=== PATIENT | male | born 1940 | race Hispanic/Latino ===

== ENCOUNTER 2017-04-12 18:04 | Inpatient (IN) | payer MEDICARE ==
[2017-04-12 18:31] VITALS: BMI 21.5
--- NOTE | 2017-04-12 19:06 | ED PDOC ---
Arrival/HPI - General Chief Complaint: Altered Mental Status Time Seen by Provider: 04/12/17 18:27 Historian: Patient - History of Present Illness Narrative History of Present Illness (Text): 04/12/17 19:08 A 77 year old male, whose past medical history includes dementia and hypertension, presents to the emergency department because of agitated behavior. Patient's daughter and notes he has problems sleeping. Daughter also notes Dr. Richmond made a house visit last night to evaluate patient and changed his Xanax medication to Seroquel, which didn't help. Patient's family notes he is non compliant, combative and can't reason with him. Family note him to throw things and curse at them. Patient denies abdominal pain, chest pain, vomiting, vision changes, appetite changes or any other complaints at this time. PMD: Dr. Richmond Symptom Onset: Sudden Symptom Course: Unchanged Activities at Onset: Rest Context: Home Past Medical History - Provider Review Nursing Documentation Reviewed: Yes - Infectious Disease Hx of Infectious Diseases: None - Neurological HX Cerebrovascular Accident: Yes Hx Dementia: Yes - Musculoskeletal/Rheumatological Hx Falls: No - Genitourinary/Gynecological Hx Incontinence: Yes Hx Prostate Problems: Yes - Psychiatric Hx Bipolar Disorder: Yes Hx Depression: No Hx Emotional Abuse: No Hx Physical Abuse: No Hx Substance Use: Yes - Surgical History Other/Comment: Broken Nose - Suicidal Assessment Feels Threatened In Home Enviroment: No Family/Social History - Physician Review Nursing Documentation Reviewed: Yes Family/Social History: No Known Family HX Smoking Status: Former Smoker Hx Alcohol Use: Yes Hx Substance Use: Yes Allergies/Home Meds Allergies/Adverse Reactions: Allergies No Known Allergies Allergy (Verified 04/12/17 18:18) Home Medications: Home Meds Medication Instructions Recorded Confirmed OLANZapine [Zyprexa Zydis] 10 mg PO DAILY 12/12/13 04/12/17 Donepezil [Aricept] 10 mg PO DAILY 04/12/17 04/12/17 Lamotrigine [Lamictal] 100 mg PO DAILY 04/12/17 04/12/17 Metoprolol Tartrate [Lopressor] 25 mg PO HS 04/12/17 04/12/17 Mupirocin 2% Cream [Bactroban 30 applic TOP 04/12/17 Cream] Oxybutynin Chloride [Ditropan Xl] 5 mg PO DAILY 04/12/17 04/12/17 Quetiapine Fumarate [Seroquel] 50 mg PO DAILY 04/12/17 04/12/17 Quetiapine Fumarate [Seroquel] 100 mg PO HS 04/12/17 04/12/17 Simvastatin 10 mg PO DAILY 04/12/17 04/12/17 Venlafaxine [Effexor XR] 150 mg PO DAILY 04/12/17 04/12/17 amLODIPine [Norvasc] 5 mg PO DAILY 04/12/17 04/12/17 Review of Systems - Physician Review All systems were reviewed & negative as marked: Yes - Review of Systems Systems not reviewed;Unavailable: Dementia Eyes: absent: Vision Changes Cardiovascular: absent: Chest Pain Gastrointestinal: absent: Abdominal Pain, Vomiting, Appetite Changes Physical Exam Vital Signs Reviewed: Yes (O2 sat is 90-91% on room air) Vital Signs Temp Pulse Resp BP Pulse Ox 04/12/17 21:11 60 18 114/73 95 04/12/17 18:40 97.6 F 04/12/17 18:04 99.0 F 65 17 109/68 94 L Temperature: Afebrile Blood Pressure: Normal Pulse: Regular Respiratory Rate: Normal Appearance: Positive for: Non-Toxic Pain Distress: None Mental Status: Positive for: Confused, Agitated Finger Stick Blood Glucose: 141 - Systems Exam Head: Present: Atraumatic, Normocephalic Pupils: Present: PERRL Extroacular Muscles: Present: EOMI Conjunctiva: Present: Normal Mouth: Present: Moist Mucous Membranes Pharnyx: Present: Normal. No: ERYTHEMA, EXUDATE Neck: Present: Normal Range of Motion Respiratory/Chest: Present: Clear to Auscultation, Good Air Exchange. No: Respiratory Distress, Accessory Muscle Use Cardiovascular: Present: Regular Rate and Rhythm, Normal S1, S2. No: Murmurs Abdomen: Present: Normal Bowel Sounds. No: Tenderness, Distention, Peritoneal Signs Back: Present: Normal Inspection Upper Extremity: Present: Normal Inspection. No: Cyanosis, Edema Lower Extremity: Present: Normal Inspection. No: Edema Neurological: Present: GCS=15, CN II-XII Intact, Speech Normal Skin: Present: Warm, Dry, Normal Color. No: Rashes Psychiatric: Present: Alert, Agitated, Other (oriented to person and partly to place) Medical Decision Making ED Course and Treatment: 04/12/17 19:02 Impression: A 77 year old male with agitated behavior. Differential Diagnosis included but are not limited to: psych exacerbation vs worsening dementia vs infection Plan: -- EKG -- CT brain -- CT chest -- chest xray -- Urinalysis -- labs -- IV fluids -- Reassess and disposition Prior Visits: Notes and results from previous visits were reviewed. Patient last reported to the emergency department on 12/12/13 for evaluation of altered mental status, after code stroke. Patient was admitted to telemetry with neurologist on consult. Progress Notes: CT brain: IMPRESSION: No acute findings. Dictated and Authenticated by: Sebastian Doran MD 04/12/2017 8:32 PM Eastern Time ([place] & [place]) CT chest: IMPRESSION: 1. Elevation of the right hemidiaphragm with mild bibasilar atelectasis or scar , greatest in the right lower lobe. 2. Decreased height or wedge configuration of multiple thoracic segments which appear to be chronic with probable segmental ankylosis. 3. Small nonobstructing bilateral renal calculi. 4. Small hiatal hernia. 5. Otherwise negative CT chest. No focal infiltrates are identified. Dictated and Authenticated by: Kwesi Snider MD 04/12/2017 8:58 PM Eastern Time ([place] & [place] 04/12/17 21:12 Patient with hypoxia present but otherwise unremarkable vitals. ABG done with pC02 at 52 but compensated. No tachypnea. Chest XR and CT showing atx but no acute findings. Other labs with CPK elevation of 763 - will start ivf. Patient will need to be admitted for further psych eval. Will maintain nc O2 and IVF and psych consult. Discussed w/ Dr. Richmond. - Lab Interpretations Lab Results: 04/12/17 19:10 04/12/17 19:10 Lab Results 04/12/17 19:10: Sodium 139, Potassium 3.5 L, Chloride 101, Carbon Dioxide 30, Anion Gap 12, BUN 10, Creatinine 1.0, Est GFR ( Amer) > 60, Est GFR (Non- Af Amer) > 60, Random Glucose 95, Calcium 8.3 L, Magnesium 2.1, Total Bilirubin 0.8, AST 48, ALT 34, Alkaline Phosphatase 58, Lactate Dehydrogenase 522, Total Creatine Kinase 763 H, CK-MB (CK-2) 5.1 H, CK-MB (CK-2) % 0.7 L, Troponin I 0.03 D, NT-Pro-B Natriuret Pep 126, Total Protein 6.8, Albumin 3.4, Globulin 3.4, Albumin/Globulin Ratio 1.0 L, Lipase 30 04/12/17 19:10: PT 13.8 H, INR 1.28 H, APTT 27.6 04/12/17 19:10: WBC 6.5, RBC 3.81, Hgb 12.1 L, Hct 36.4 L, MCV 95.5, MCH 31.8, MCHC 33.2, RDW 13.9, Plt Count 205, MPV 9.0, Gran % 49.5 L, Lymph % (Auto) 31.9 , Baca % (Auto) 13.6 H, Eos % (Auto) 4.5, Baso % (Auto) 0.5, Gran # 3.21, Lymph # 2.1, Baca # 0.9 H, Eos # 0.3, Baso # 0.03 04/12/17 18:30: POC Glucose (mg/dL) 141 H I have reviewed the lab results: Yes - RAD Interpretation Radiology Orders: 04/12/17 18:33 Brain [HEAD W/O CONTRAST] [CT] Stat 04/12/17 19:00 CHEST PORTABLE [RAD] Stat 04/12/17 20:07 CHEST W/O CONTRAST [CT] Stat - EKG Interpretation Interpreted by ED Physician: Yes Type: 12 lead EKG - Medication Orders Current Medication Orders: Sodium Chloride (Sodium Chloride 0.9%) 1,000 mls @ 200 mls/hr IV .Q5H STA Stop: 04/13/17 01:19 Last Admin: 04/12/17 20:41 Dose: 200 mls/hr Discontinued Medications Potassium Chloride (Potassium Chloride Oral Soln) 40 meq PO STAT STA Stop: 04/12/17 20:26 Last Admin: 04/12/17 20:41 Dose: 40 meq - Scribe Statement The provider has reviewed the documentation as recorded by the Jamin Wakefield Provider Scribe Attestation: All medical record entries made by the Girishibjuliet were at my direction and personally dictated by me. I have reviewed the chart and agree that the record accurately reflects my personal performance of the history, physical exam, medical decision making, and the department course for this patient. I have also personally directed, reviewed, and agree with the discharge instructions and disposition. Disposition/Present on Arrival - Present on Arrival Any Indicators Present on Arrival: No History of DVT/PE: No History of Uncontrolled Diabetes: No Urinary Catheter: No History of Decub. Ulcer: No History Surgical Site Infection Following: None - Disposition Have Diagnosis and Disposition been Completed?: Yes Diagnosis: Altered mental status, Elevated CPK Disposition: HOSPITALIZED Disposition Time: 21:10 Patient Plan: Admission Condition: FAIR
[2017-04-12 19:27] LABS: ADD MANUAL DIFF? NO
[2017-04-12 19:38] LABS: BASO # 0.03 K/mm3 (0.0-2.0); BASO % 0.5 % (0.0-3.0); EOS # 0.3 (0.0-0.7); EOS % 4.5 % (1.5-5.0); GRAN # 3.21 (1.4-6.5); GRAN % 49.5 % (50.0-68.0); HEMATOCRIT 36.4 % (42.0-52.0); LYMPH # 2.1 (1.2-3.4); LYMPH % 31.9 % (22.0-35.0); MEAN CELL VOLUME 95.5 fL (80.0-105.0); MEAN CORPUSCULAR HEMOGLOBIN 31.8 pg (25.0-35.0); MEAN CORPUSCULAR HGB CONC 33.2 g/dl (31.0-37.0); MONO # 0.9 (0.1-0.6); MONO % 13.6 % (1.0-6.0); PLATELET COUNT 205 10^3/uL (120.0-450.0); RED CELL DISTRIBUTION WIDTH 13.9 % (11.5-14.5); WHITE BLOOD COUNT 6.5 10^3/ul (4.5-11.0)
[2017-04-12 20:01] LABS: ALKALINE PHOSPHATASE 58 U/L (38-133); ALT/SGPT 34 U/L (7-56); AST/SGOT 48 U/L (15-59); BILIRUBIN,TOTAL 0.8 mg/dL (0.2-1.3); BLOOD UREA NITROGEN 10 mg/dL (7-21); CALCIUM 8.3 mg/dL (8.4-10.5); CARBON DIOXIDE 30 mmol/L (21-33); CHLORIDE 101 mmol/L (98-107); GFR AFRICAN-AMERICAN > 60; GLUCOSE,RANDOM 95 mg/dL (70-110); LIPASE 30 U/L (23-300); MAGNESIUM 2.1 mg/dL (1.7-2.2); POTASSIUM 3.5 mmol/L (3.6-5.0); SODIUM 139 mmol/L (132-148); TOTAL PROTEIN 6.8 g/dL (5.8-8.3)
[2017-04-12 20:13] LABS: TROPONIN I 0.03 ng/mL
[2017-04-12] MEDS ORDERED: Sodium Chloride 0.9% 1,000 ML IV STA (20:20)
[2017-04-12] MEDS ORDERED: Potassium Chloride 40 mEq/30 ml LIQ UD PO STA (20:25)
[2017-04-12 21:01] LABS: INR 1.28 (0.93-1.08); PARTIAL THROMBOPLASTIN TIME 27.6 Seconds (23.7-30.8)
[2017-04-12 22:01] LABS: PH,URINE 5.5 (4.7-8.0); URINE BILIRUBIN NEGATIVE (NEGATIVE); URINE BLOOD MODERATE (NEGATIVE); URINE GLUCOSE (UA) NEGATIVE (NEGATIVE); URINE KETONE NEGATIVE (NEGATIVE); URINE LEUKOCYTE ESTERASE NEGATIVE Leu/uL (NEGATIVE); URINE PROTEIN NEGATIVE mg/dL (<30 mg/dL); URINE UROBILINOGEN 0.2 E.U./dL (<1 E.U./dL)
[2017-04-12 22:03] LABS: URINE APPEARANCE CLEAR (CLEAR); URINE COLOR YELLOW (YELLOW)
[2017-04-12 22:10] LABS: URINE EPITHELIAL CELLS 0 - 2 /hpf (0-5); URINE RBC 15 - 20 /hpf (0-2)
[2017-04-12 23:28] LABS: ARTERIAL BLOOD GAS HCO3 31.5 mmol/L (21-28); ARTERIAL BLOOD GAS PH 7.39 (7.35-7.45)
--- NOTE | 2017-04-13 00:07 | HP ---
HISTORY OF PRESENT ILLNESS: The patient is a 77-year-old known to me from multiple previous admissio ns. I was called by the family yesterday that lately he has been somewhat confused, agitated, upset, obsessed with certain ideas. He keeps on repeating himself, is very abusive the family has no t been sleeping. He has been on multiple psych medications. We made a change and told the family if this did not help then he should be brought to Emergency Room for further evaluation and make adjust ment of his psych medication. There is no history of nausea or vomiting, no history of diarrhea, no history of hemoptysis, no hematemesis, no chest pain, no shortness of breath. According to daughter and who is the [employer] rep that lately he has been obsessed with certain idea and keeps on ta lking about that. Once he starts saying something he keeps on repeating for a very long period of ti me and it is very hard to distract him, sometime abusive. PAST MEDICAL HISTORY: Significant for: 1. History of bipolar disorder. 2. Hypertension. 3. Hyperlipidemia. 4. History of hip osteoarthritis. He has limited mobility because of pain in his hip. ALLERGIES: Not allergic to any medications. MEDICATIONS AT HOME: He is on Seroquel 100 mg at bedtime, 50 mg in a.m., simvastatin 10 mg daily, ox ybutynin 5 mg daily, metoprolol 25 at bedtime, Aricept 10 mg daily, amlodipine 5 mg daily, Lamictal 1 00 mg daily, Effexor 150 daily and Zyprexa 10 mg daily. SOCIAL HISTORY: He used to be a very heavy smoker. He does not smoke anymore. He used to drink a l ot, but has quit drinking also. REVIEW OF SYSTEMS: Significant for somewhat confusion and disorientation to time and place. PHYSICAL EXAMINATION: GENERAL: He is not in any distress. VITAL SIGNS: He is afebrile, pulse 60, respirations 18, blood pressure 117/77. LUNGS: Bilateral fair airflow, no rhonchi or crackle. HEART: S1, S2 audible. ABDOMEN: Soft, nontender, no rebound, no guarding. NEUROLOGIC: He is awake and alert, answers simple questions. He does not know the depth of the prob saravanan and cannot be reasoned. LABORATORY DATA: WBC is 139, potassium 3.5, chloride 101, CO2 30, BUN 10, creatinine 1.0, blood suga r 195. WBC 6.5, hemoglobin 12, hematocrit 36, platelet 206. PT 13.8, INR 1.08, PTT 27.6. Urinalysi s shows moderate blood. CT of the head is unremarkable. X-ray of the chest is unremarkable. ASSESSMENT: 1. Altered mental status, etiology unknown. 2. Underlying dementia. 3. Adjustment disorder. 4. Hypertension. 5. Hyperlipidemia. 6. Left hip osteoarthritis. PLAN: Will continue him on his usual home medication. Will be given Geodon as needed for agitation. Psych consult will be requested by and make adjustment dose of psych medication. Once he is medically cleared he might be transferred to a psych unit for adjustment of his psych medication and observation of his behavior. Sarah Richmond MD cc: [phone] TT: 04/13/2017 00:07:07 valentina
--- NOTE | 2017-04-13 07:31 | CT ---
PROCEDURE: CT HEAD WITHOUT CONTRAST. HISTORY: altered mental status COMPARISON: Noncontrast head CT performed 12/12/13 TECHNIQUE: Axial computed tomography images were obtained through the head/brain without intravenous contrast. Radiation dose: Total exam DLP = 871.01 mGy-cm. This CT exam was performed using one or more of the following dose reduction techniques: Automated exposure control, adjustment of the mA and/or kV according to patient size, and/or use of iterative reconstruction technique. FINDINGS: HEMORRHAGE: No intracranial hemorrhage. BRAIN: Diffuse atrophy with prominence of the ventricles and sulci noted. No mass effect or edema. Extensive left cerebral encephalomalacia and gliosis within the left MCA territory compatible with prior ischemic stroke. Acute on chronic ischemia cannot be excluded. Please note that MRI with diffusion imaging is more sensitive in the detection of acute ischemic event. VENTRICLES: No hydrocephalus. CALVARIUM: Unremarkable. PARANASAL SINUSES: Unremarkable as visualized. No significant inflammatory changes. MASTOID AIR CELLS: Unremarkable as visualized. No inflammatory changes. OTHER FINDINGS: None. IMPRESSION: Extensive left cerebral encephalomalacia and gliosis within the left MCA territory compatible with prior ischemic stroke. Acute on chronic ischemia cannot be excluded. Please note that MRI with diffusion imaging is more sensitive in the detection of acute ischemic event. Preliminary impression was provided by [facility].
[2017-04-13 07:52] LABS: MAGNESIUM 2.1 mg/dL (1.7-2.2)
[2017-04-13 08:05] LABS: FREE T4 0.76 ng/dL (0.78-2.19)
[2017-04-13 08:19] LABS: THYROID STIMULATING HORMONE 0.74 mIU/mL (0.46-4.68)
[2017-04-13 09:05] LABS: ALB/GLOB RATIO 0.9 (1.1-1.8); ALKALINE PHOSPHATASE 61 U/L (38-133); ALT/SGPT 34 U/L (7-56); AST/SGOT 49 U/L (15-59); BILIRUBIN,TOTAL 0.7 mg/dL (0.2-1.3); BLOOD UREA NITROGEN 9 mg/dL (7-21); CALCIUM 8.4 mg/dL (8.4-10.5); CARBON DIOXIDE 31 mmol/L (21-33); CHLORIDE 105 mmol/L (98-107); GFR AFRICAN-AMERICAN > 60; GLUCOSE,RANDOM 99 mg/dL (70-110); POTASSIUM 3.8 mmol/L (3.6-5.0); SODIUM 141 mmol/L (132-148); TOTAL PROTEIN 6.6 g/dL (5.8-8.3)
--- NOTE | 2017-04-13 09:24 | RAD ---
HISTORY: alt ms COMPARISON: 12/12/2013 FINDINGS: LUNGS: No active pulmonary disease. PLEURA: No significant pleural effusion identified, no pneumothorax apparent. CARDIOVASCULAR: Normal. OSSEOUS STRUCTURES: No significant abnormalities. VISUALIZED UPPER ABDOMEN: Normal. OTHER FINDINGS: None. IMPRESSION: No active disease.
[2017-04-13] MEDS: OXYBUTYNIN CHLORIDE 5 MG PO SCH (09:25)
[2017-04-13] MEDS ORDERED: Venlafaxine 75 mg ER Cap PO SCH ×2 (10:00→11:18)
--- NOTE | 2017-04-13 10:35 | CT ---
CT chest without IV contrast Indication: Hypoxia, rule out pneumonia Technique: Contiguous axial images were obtained through the chest without intravenous contrast enhancement. Sagittal and coronal reconstructions were generated and reviewed. This CT exam was performed using 1 or more of the falling dose reduction techniques: Automated exposure control, adjustment of the MAA and/or kV according to patient size, and/or use of iterative reconstruction technique. Radiation dose (DLP): 959.14 MGy-cm. Comparison: Chest x-ray performed 04/12/17 Findings: Visualized portions of the inferior thyroid gland appear unremarkable. The unenhanced mediastinal and hilar vascular structures appear grossly unremarkable. The heart appears within normal limits of size. Coronary artery calcifications. Sub cm prevascular and mediastinal lymph nodes, nonspecific. Bibasilar atelectasis. No focal consolidation. No pleural effusion. No pneumothorax. No suspicious pulmonary nodules measuring greater than 5 mm. Small to moderate hiatal hernia. Limited visualization of the noncontrast upper abdomen demonstrates small nonobstructing renal calculi bilaterally. Probable bilateral renal cysts measuring up to 2.3 cm on the right. Elevation of the right hemidiaphragm. Mild loss of height involving multiple mid and lower thoracic vertebral bodies may reflect compression fractures, age indeterminate. Prominent anterior osteophyte formation several of which are confluent. Osseous demineralization. Degenerative changes. Impression: Bibasilar atelectasis. Elevation of the right hemidiaphragm. Multilevel degenerative changes. Osseous demineralization. Loss of height of several vertebral bodies, possibly compression fracture deformities which are age indeterminate. Confluent anterior osteophyte formation. Nonobstructing bilateral renal calculi. Probable bilateral renal cysts. Small to moderate hiatal hernia. Additional findings as above. Preliminary impression was provided by [facility].
--- NOTE | 2017-04-13 11:59 | CARD ---
APPROVED REPORT EKG Measurement Heart [id number] <Conclusion> Sinus rhythm with 1st degree AV block Cannot rule out Inferior infarct, age undetermined C/W ECG 12/12/13: the rate is slower and there is 1st degree AVB now
--- NOTE | 2017-04-13 12:26 | CON ---
DATE: 04/13/2017 Shortly, the patient is a 77-year-old male with long and debilitating history of mental ill ness. Most likely, the patient has history of schizoaffective disorder, bipolar type, multiple admis sions to the psychiatric inpatient unit, had multiple suicidal attempts. The patient also has histor y of dementia. The patient also has history of alcohol use disorder. The patient does not have psyc hiatrist in the community. Mental problems were taken care of by Dr. Richmond as outpatient. At the same time, the patient was stable on the medications as of now. The patient was on Effexor. The patient was on Zyprexa 10 mg daily. The patient was on Lamictal 100 mg daily, Aricept 10 mg daily. The patient lives with his family in [place], was brought in by his daughter, as well as for amarilys luation of disorganized, agitated behavior. The patient was not safe in the house. The patient was smearing feces. The patient was throwing things towards his family, was restless, agitated, was not sleeping. Psych consult was called for evaluation of the patient's psychotic symptoms, as well as me dication management. The patient was seen on the medical side. The patient presented to be disorganized, psychotic, poor personal hygiene, intense eye contact, loud voice. The patient was making inappropriate comments giv ing this commercial loan underwriter compliments and asking how old is she. The patient also was asking, "Do I look good for you?" The patient seems to be intimidating and no boundaries. The patient gave permission to speak to his daughter. Daughter was contacted, ____ Cass Blanchard, . Collaterals were appreciated. As per daughter, the patient was more agitated and aggr essive for the past 2 days, was not sleeping, was throwing things towards the family members. Family members were not able to leave the patient even for a few minutes. The patient was having OCD sympt oms, but he is ____, also was measuring his feces. The patient also making feces, pacing, restless, and staying up. The patient has history of long psychiatric illnesses, [facility]. Most recent was 2 years ago. The patient has history of nonco mpliance with the medication, but the patient's daughter said that the patient was taking medication as it was prescribed. The patient was in correction 15 years ago. The patient tried to kill himself in the past, but most recent suicidal attempt, as per the patient's daughter was many years ago. The patient overdosed on pills. The patient was cutting his wrist with a knife. The patient has history of alcohol abuse di sorder. A few years back, the patient was convinced that he cut his penis off. and that is why the p atbisi was transferred to [facility]3]. This commercial loan underwriter reviewed previous psychiatric evaluation by Dr. Borja, and it was in 2013. The patient was on the same set of the medications - Effexor as well as Lamictal 100 mg, as well as Zyprexa 10 mg daily. This commercial loan underwriter discussed treatment plan in detail with the patient's daughter. This commercial loan underwriter reviewed vit al signs. VITAL SIGNS: Seem to be stable. Temperature 98.2. Pulse is 70, blood pressure 139/89, respirations 18. Oxygen saturation is 95. MEDICATIONS: Reviewed. Norvasc 5 mg daily, Lipitor 10 mg at the nighttime, Aricept 10 mg daily, Harkins ictal 100 mg daily, Lopressor 25 mg at the nighttime, ____ topical. Zyprexa was 10 mg daily, Effexor 150 mg daily, as well as Seroquel 100 mg at the nighttime and 50 mg daily, and Geodon 20 mg IM q. 8 hours as needed for agitation. LABORATORY DATA: Reviewed. Hemoglobin and hematocrit 12.1 and 36.4. Coagulation reviewed. Meat Pickler ry reviewed. AST and ALT within normal limits. Potassium is 3.5. Urinalysis showed blood moderate. Chest CT scan was done on the . Impression: Bibasilar atelectasis, multilevel degenerative klein ges, bilateral renal calculi, hiatal hernia. The patient also had CT scan of the head. Excessive left cerebral encephalomalacia and gliosis withi n the left MCA territory compatible with prior ischemic stroke. Acute on chronic ischemia cannot be excluded. MRI was recommended. Preliminary impression was provided by [facility]. Collateral information was obtained from the nursing staff. As per nursing staff, the patient slept well overnight time. The patient is disorganized, throwing food on the floor. Personal hygiene is v lilly poor. MENTAL STATUS EXAMINATION: The patient presented to be alert, angry, ____, poor personal hygiene. T he patient was sitting half naked. The patient had intense eye contact. Speech was loud. The patie nt was making inappropriate comments. Speech was over-productive and loud. Thought process is organ ized. Thought content: The patient seems to be disorganized. See above. The patient denied though ts of harming herself or others, but impulses are unpredictable. Insight and judgment are impaired. IMPRESSION: This commercial loan underwriter cannot exclude that patient is in delirium stage. Also, the patient has his tory of Alzheimer's dementia, history of schizoaffective disorder. The patient has multiple medical issues. Please see note for more detailed information. The patient was admitted on the medical side for evaluation of altered mental status, being confused, agitated. PLAN: This commercial loan underwriter had prolonged conversation with the patient's daughter. We will start adjustment of the medications. Most likely, the patient should be discontinued with Effexor. Celexa could be p referable for disinhibition syndrome, as well as the patient has history of smearing his feces. Lami ctal most likely will be changed to Depakote for mood stabilization. Zyprexa will be redistributed, and it will be given Zyprexa Zydis 5 mg 3 times a day at the morning time, and the nighttime, and 4:0 0 p.m. For insomnia, this commercial loan underwriter will give Sonata. Half-life is very short, and the patient could be sleepi ng better on that medication. The patient needs to be evaluated by social services designee in order to find out if the patient is capable of making decision about his POA, and if the patient wants his family to be his POA. In case this patie nt's mental status will be improving, and if the patient will be able to process the information abou t admission, treatment, and potential risk and benefits and alternatives of all of the medications, w e will consider to accept the patient under voluntary status. If patient will be combative and will be not able to make decision about admission, [facility]3] will be recommended. Screen ing process will be initiated. Meanwhile, this commercial loan underwriter cannot exclude that the patient's mental statu s will be improving with the help of adjustment of medications. Should you have any questions, give me a call back. Evelyn Coats MD cc: [phone] TT: 04/13/2017 12:25:18 Confirmation # [id number] Dictation # [id number]
[2017-04-13] MEDS ORDERED: OLANZapine 5 mg Disintegrating Tab PO SCH ×2 (14:00→22:00)
[2017-04-13] MEDS: Nystatin 100,000 Units/gm Topical Pow(15 gm) TOP SCH ×2 (15:14→17:23)
[2017-04-13 19:07] VITALS: RESP 20; TEMP 98.5
--- NOTE | 2017-04-13 19:11 | PN ---
DATE: 04/13/2017 SUBJECTIVE: The patient is a 77-year-old seen and examined, seemed to be confused, disoriented, not as agitated as when I saw him at home. PHYSICAL EXAMINATION: VITAL SIGNS: He is afebrile, pulse 70, respirations 18, blood pressure 139/83. LUNGS: Bilateral fair airflow, no rhonchi or crackle. HEART: S1, S2 audible. ABDOMEN: Soft, nontender, no rebound, no guarding. NEUROLOGIC: The patient is awake and alert, but confused and disoriented. LABORATORY: Sodium 141, potassium 3.8, chloride 105, CO2 of 31, BUN 9, creatinine 0.9, blood sugar o f 99. LFTs are within normal limits. CT scan of the chest is unremarkable. CT scan of the head is unremarkable. ASSESSMENT AND PLAN: 1. Dementia with agitation. 2. History of bipolar disorder. 3. Adjustment disorder. 4. Hypertension. 5. History of schizophrenia. 6. History of alcohol abuse in the remote past. PLAN: Get neuro evaluation, request Dr. Pineda. Psych medication is being adjusted by Dr. Rivas. Di scussed with the family at length, since we have volunteer unit, the patient is not capable of signin g himself, and if he clears up within a day or 2, he might be taken to psych unit, otherwise, we migh t have to [facility]. Sarah Richmond MD cc: [phone] TT: 04/13/2017 19:11:07 Confirmation # [id number] Dictation # [id number] mn
--- NOTE | 2017-04-14 03:17 | CP.PCM.PN ---
Subjective - Date & Time of Evaluation Date of Evaluation: 04/14/17 Time of Evaluation: 03:16 - Subjective Subjective: Ofelia was seen at bedside because One to one watch was requested. Reviewed with nurse. Received ativan 2 mg at 2:32 AM. This 77 year old male was admitted because he was confused , agigtated , obscessed with certain ideas. Has PMH of bipolar disorder, HTN, HLD, OA, hip pain/immobility 2* to hip pain, Ex smoker. Objective - Vital Signs/Intake and Output Vital Signs (last 24 hours): Temp Pulse Resp BP Pulse Ox 98.5 F 78 20 153/86 H 92 L 04/13/17 16:00 04/13/17 23:02 04/13/17 16:00 04/13/17 23:02 04/13/17 16:00 Intake and Output: 04/13/17 04/14/17 18:59 06:59 Intake Total 560 520 Balance 560 520 - Medications Medications: Current Medications Amlodipine Besylate (Norvasc) 5 mg PO DAILY [facility] Last Admin: 04/13/17 09:26 Dose: 5 mg Atorvastatin Calcium (Lipitor) 10 mg PO DIN [facility] Last Admin: 04/13/17 17:23 Dose: Not Given Citalopram Hydrobromide (Celexa) 10 mg PO DAILY [facility] Last Admin: 04/13/17 15:16 Dose: 10 mg Donepezil HCl (Aricept) 10 mg PO DAILY [facility] Last Admin: 04/13/17 09:26 Dose: 10 mg Lamotrigine (Lamictal) 75 mg PO DAILY [facility] Lorazepam (Ativan) 2 mg IM Q6H PRN; Protocol PRN Reason: severe agitation Last Admin: 04/14/17 02:32 Dose: 2 mg Metoprolol Tartrate (Lopressor) 25 mg PO HS [facility] Last Admin: 04/13/17 23:02 Dose: 25 mg Non-Formulary Medication (Oxybutynin Chloride [Ditropan Xl]) 5 mg PO DAILY [facility] Last Admin: 04/13/17 09:25 Dose: Not Given Nystatin (Nystop Topical Powder) 0 gm TOP BID [facility] Last Admin: 04/13/17 17:23 Dose: Not Given Olanzapine (Zyprexa Zydis) 5 mg PO [facility] PRN Reason: Protocol Olanzapine (Zyprexa Zydis) 5 mg PO 1400 [facility] PRN Reason: Protocol Last Admin: 04/13/17 15:15 Dose: 5 mg Valproate Sodium (Depakene) 250 mg PO AMHS [facility] Last Admin: 04/13/17 23:03 Dose: 250 mg Venlafaxine HCl (Effexor Xr) 75 mg PO DAILY [facility] Zaleplon (Sonata) 5 mg PO HS PRN PRN Reason: Insomnia Ziprasidone (Geodon Inj) 20 mg IM Q8H PRN; Protocol PRN Reason: Agitation Last Admin: 04/13/17 15:02 Dose: 20 mg - Labs Labs: 04/13/17 07:15 PT 13.8 Seconds (9.9-11.8) H 04/12/17 19:10 INR 1.28 (0.93-1.08) H 04/12/17 19:10 APTT 27.6 Seconds (23.7-30.8) 04/12/17 19:10 - Constitutional Appears: Well, No Acute Distress - Head Exam Head Exam: ATRAUMATIC, NORMAL INSPECTION, NORMOCEPHALIC - Eye Exam Eye Exam: Normal appearance - ENT Exam ENT Exam: Normal External Ear Exam - Neck Exam Neck Exam: Normal Inspection - Respiratory Exam Respiratory Exam: NORMAL BREATHING PATTERN - Cardiovascular Exam Cardiovascular Exam: absent: JVD - GI/Abdominal Exam GI & Abdominal Exam: absent: Distended - Rectal Exam Rectal Exam: Deferred - Extremities Exam Extremities Exam: Normal Inspection - Back Exam Back Exam: NORMAL INSPECTION - Neurological Exam Neurological Exam: Awake - Psychiatric Exam Psychiatric exam: Agitated - Skin Skin Exam: Normal Color Assessment and Plan - Assessment and Plan (Free Text) Assessment: A/P:Agitation. Confusion. HTN. HLD. OA. Ex smoker. Bipolar disorder. Geodon 20 mg IM x 1. Continue present management.
[2017-04-14 08:57] VITALS: O2SAT 96
[2017-04-14] MEDS ORDERED: OLANZapine 10 mg Disintegrating Tab PO SCH (09:18)
[2017-04-14] MEDS ORDERED: Venlafaxine 37.5 mg ER Cap PO SCH (09:20)
[2017-04-14] MEDS: OXYBUTYNIN CHLORIDE 5 MG PO SCH (10:13)
[2017-04-14] MEDS: Nystatin 100,000 Units/gm Topical Pow(15 gm) TOP SCH (10:13)
[2017-04-14 10:17] VITALS: BP 131/84; PULSE 78
--- NOTE | 2017-04-14 10:56 | PN ---
DATE: 04/14/2017 The patient was followed up today. The patient has long history of schizoaffective disorder, bipolar type, multiple medical problems as well as admission to the psychiatric inpatient unit. Please see my initial note for more detailed information. The patient was followed up during the morning time. As per report from the nursing staff, patient was agitated overnight. The patient needed to be medi cated with Ativan, which was not effective. Geodon, patient tolerated well and patient slept after i njection of Geodon well. The patient was seen today at the morning time. The patient presented to kelli chung disorganized, but oriented in self, place as well as month and year. The patient oddly related to this remote mortgage underwriter, asked if this remote mortgage underwriter will him. The patient appears to be internally preoccupied a s well as disorganized and psychotic. This remote mortgage underwriter was changing his medication. The patient seems to be tolerating them well and no side effects observed or reported. This remote mortgage underwriter reviewed vital signs. Vital signs seem to be stable. VITAL SIGNS: Temperature is 98.5, pulse is 78, blood pressure 131/84, respirations 20, oxygen satura tion is 96%. MEDICATIONS: Reviewed. The patient is on Norvasc, Lipitor, Celexa was started yesterday 10 mg. The patient is on Aricept 10 mg daily, Lamictal was decreased to 75 mg daily, Ativan 2 mg q. 6 hours p.r. n. IM, Lopressor 25 mg, Zyprexa Zydis was increased to 10 mg twice a day, depakene will be increased to 500 mg twice a day, Effexor was decreased to 37.5 mg daily, Sonata 5 mg at the nighttime as needed for insomnia, Geodon 20 mg IM q. 8 hours p.r.n. LABORATORIES: Reviewed. Most recent was from the day before yesterday. Case was discussed with Dr. Richmond. As per Dr. Richmond, patient is medically cleared for transfer t o the psychiatric inpatient unit. This remote mortgage underwriter had prolonged conversation with patient's daughter yes terday. The patient gave permission. MENTAL STATUS EXAMINATION: The patient appears to be alert, oriented in self, time, and place. The patient is oddly related to this remote mortgage underwriter. Intense eye contact. Speech was over-productive, loud. Mo od described, "I'm fine. We will me?" Thought process is disorganized. Thought content: The patient appears to be internally preoccupied, but denied hearing voices, denied seeing things. Insi ght and judgment limited. Impulses are unpredictable. IMPRESSION: The patient has long history of schizoaffective disorder, bipolar type. The patient als o has dementia, multiple medical problems. Please see medical team note for more detailed informatio n. PLAN: The patient deemed to have capacity to sign consent for treatment. The patient wants to get b elif and wants his medication to be adjusted. bull gang worker was contacted. This remote mortgage underwriter will send s ocial worker for consent. The patient will be transferred to the psychiatric inpatient unit for furt her evaluation and stabilization. Lamictal will be weaned off. Depakote will be titrated up. Zypre xa was increased today. Ativan and Geodon as needed. Sonata as needed for insomnia. Celexa will be titrated up. Effexor will be weaned off. Thank you very much for letting me participate in care of your patient. Should you have any question s, give me a call back. The patient needs further evaluation and stabilization into the psychiatric inpatient unit because as per family, patient was not functioning well, was aggressive and agitated, posed danger to self and others. Evelyn Coats MD cc: [phone] TT: 04/14/2017 10:55:12 Confirmation # [id number] Dictation # [id number] en
--- NOTE | 2017-04-14 14:50 | DS ---
The patient is a 77-year-old, seen and examined. He is lying in bed. He seems to be more alert, abl e to communicate. Still confused, disoriented. PHYSICAL EXAMINATION: VITAL SIGNS: He is afebrile, pulse 80, respirations 20, blood pressure 131/84. LUNGS: Bilateral fair airflow, no rhonchi or crackle. HEART: S1, S2 audible. ABDOMEN: Soft, nontender, no rebound, no guarding. NEUROLOGIC: The patient is awake and alert, communicative, able to move all extremities. LABORATORY EXAMINATION: WBCs 6.5, hemoglobin 12, hematocrit 36, platelet of 205. Chemistry: There is no new chemistry available today. However, his CT scan is unremarkable. ASSESSMENT: 1. Altered mental status. 2. Dementia. 3. Schizoaffective disorder with mood disorder. 4. Left hip osteoarthritis. PLAN: The patient will be discharged from acute care floor and he will go to psych unit. I will fol low up patient there. Sarah Richmond MD cc: [phone] TT: 04/14/2017 14:49:51 en
== END 2017-04-14 14:47 | DRG 57 ==
LOC: ED 18:04 → ERH 21:10 → 5RSO 23:16
PROVIDERS: ADMIT Internal Medicine; ATTEND Internal Medicine
DX: G30.9 Alzheimer's disease, unspecified (principal); F02.80 Dementia in other diseases classified elsewhere, unspecified severity, without behavioral disturbance, psychotic disturbance, mood disturbance, and anxiety; F25.0 Schizoaffective disorder, bipolar type; I10 Essential (primary) hypertension; E78.5 Hyperlipidemia, unspecified; M16.12 Unilateral primary osteoarthritis, left hip; R45.1 Restlessness and agitation; Z87.891 Personal history of nicotine dependence; Z91.14 Patient's other noncompliance with medication regimen

== ENCOUNTER 2017-04-14 14:53 | Inpatient (IN) | payer MEDICARE ==
[2017-04-14] MEDS: OLANZapine 5 mg Disintegrating Tab PO SCH (21:40)
[2017-04-15] MEDS ORDERED: Alum-Mag Hydrox-Simethicone Susp (30 mL) PO PRN (04:16)
[2017-04-15] MEDS ORDERED: Magnesium Hydroxide Susp 30 ml UD PO PRN (04:16)
[2017-04-15] MEDS ORDERED: Venlafaxine 37.5 mg ER Cap PO SCH (08:00)
[2017-04-15] MEDS ORDERED: OLANZapine 5 mg Disintegrating Tab PO SCH (08:00)
[2017-04-15 08:14] LABS: CHOLESTEROL 188 mg/dL (130-200); GLUCOSE,FASTING 112 mg/dL (65-110)
[2017-04-15 08:34] LABS: FREE T4 0.81 ng/dL (0.78-2.19)
[2017-04-15] MEDS: Nystatin 100,000 Units/gm Topical Pow(15 gm) TOP SCH ×2 (08:45→18:01)
[2017-04-15 08:48] LABS: THYROID STIMULATING HORMONE 2.38 mIU/mL (0.46-4.68)
--- NOTE | 2017-04-15 15:06 | PCM.PSYCH ---
Initial Psychiatric Evaluation - Initial Psychiatric Evaluation Type of Admission: Voluntary Legal Status: Capacity (patient has capacity to sign consent for treatment) Chief Complaint (in patient's own words): "you are all nice looking, do I look nice too?" Patient's Reaction to Hospitalization: pt was transferred from the medical floor for evaluation of psychotic/manic symptoms, meds adjustments. History of Present Illness and Precipitating Events: pt has strong and debilitating h/o mental illness, multiple psych admissions, h/ o suicidal attempts, as per family pt has h/o dementaia and alcohol use disorder , pt was not followed up by psychiatrist in the community, med management by , pt was stable on meds for years, but pt was brought in to the ED s/ p AMS, agitation, not sleeping, psychotic, OCD, pt was smearing feces, was aggressive towards family, pt was not able to function, was in danger to self or others. initially pt was seen on the medical side where he was admitted for evaluation AMS. pt was seen pt as a testing consultant, after pt was stabilized by medical team, pt was transferred to the psychiatric inpatient unit. initially pt was presented to be disorganized in his thoughts and behavior, was throwing things, was not sleeping, was refusing to put clothes on. pt's meds were changed: Lamictal 100mg po daily- started to taper down now pt is on 75mg daily, with plan to wean it off zyprexa 10mg daily- was increased to 5mg tid and now 10mg bid Effexor XR 150 daily- started to wean off, now is on 37.5, with the plan to d/c celexa was initiated 10mg daily with the plan to increase it further seroqeul was d/c (polypharmacy) other meds resumed this program writer had prolonged conversation with pt's daughter Cass [phone], pt was not sleeping, was throwing things towards family members, pt was not able to stay by himself even for a few minutes, pt also had OCD was "measuring and smearing his feces", pt had h/o suicidal attempts pt had similar symptoms right prior suicidal attempts. long h/o alcohol use disorder, but not anytime recent. Family expressed highest concern about pt's safety. as per daughter pt had h/o of "trying to cut his penis, or he was paranoid about it". pt was seen at tx team today, pt presented to be disorganized, hard to understand, but pt said "you are all good looking, how do I look? Good?", when this wrier asked how pt's mood pt started to dance. pt is currently on 1:1 for risk of falls and disorganized behavior. pt denies using drugs or smoking. in the ED CT of the head showed cerebral encephalomalacia, gliosis with left MA territory, prior ischemic stroke, Acute on chronic ischemia cannot be excluded. medical h/o: as per h/o dementia, medical team will f/u pt up. Social h/o: pt lives with daughter, . Lab Results 04/15/17 07:35: Free T4 0.81, TSH 3rd Generation 2.38 04/15/17 07:35: Fasting Glucose 112 H, Triglycerides 87, Cholesterol 188, LDL Cholesterol Direct 116, HDL Cholesterol 54 Vital Signs Temp Pulse Pulse Resp BP 04/15/17 08:43 82 116/72 04/15/17 07:27 98.7 F 82 20 116/72 04/14/17 21:41 81 113/72 04/14/17 15:25 98 H 20 Current Medications: Active Medications Generic Name Dose Route Start Last Admin Trade Name Freq PRN Reason Stop Dose Admin Acetaminophen 650 mg 04/15/17 04:16 Tylenol 325mg Tab PO Q4H PRN Pain, Mild (1-3) Al Hydrox/Mg Hydrox/Simethicone 30 ml 04/15/17 04:16 Maalox Plus 30 Ml PO DAILY PRN Upset Stomach Amlodipine Besylate 5 mg 04/15/17 08:00 04/15/17 08:43 Norvasc PO 5 mg DAILY [facility] Administration Atorvastatin Calcium 10 mg 04/15/17 17:00 Lipitor PO DIN [facility] Citalopram Hydrobromide 10 mg 04/15/17 08:00 04/15/17 08:42 Celexa PO 10 mg DAILY [facility] Administration Donepezil HCl 10 mg 04/14/17 22:00 04/14/17 21:40 Aricept PO 10 mg HS [facility] Administration Lamotrigine 75 mg 04/15/17 08:00 04/15/17 08:43 Lamictal PO 75 mg DAILY [facility] Administration Protocol Lorazepam 2 mg 04/14/17 18:13 04/15/17 04:17 Ativan PO 2 mg Q6 PRN Administration Agitation Protocol Lorazepam 2 mg 04/14/17 18:15 Ativan IM Q6H PRN Anxiety Protocol Magnesium Hydroxide 30 ml 04/15/17 04:16 Milk Of Magnesia PO DAILY PRN Constipation Metoprolol Tartrate 25 mg 04/14/17 22:00 04/14/17 21:41 Lopressor PO 25 mg HS [facility] Administration Nystatin 0 gm 04/15/17 08:00 04/15/17 08:45 Nystop Topical Powder TOP 1 applic BID [facility] Administration Olanzapine 10 mg 04/14/17 22:00 04/14/17 21:40 Zyprexa Zydis PO 10 mg HS [facility] Administration Protocol Valproate Sodium 500 mg 04/15/17 08:00 04/15/17 08:43 Depakene PO 500 mg DAILY [facility] Administration Venlafaxine HCl 37.5 mg 04/15/17 08:00 04/15/17 08:43 Effexor Xr PO 37.5 mg DAILY [facility] Administration Zaleplon 5 mg 04/14/17 22:00 04/14/17 21:41 Sonata PO 5 mg HS PRN Administration Insomnia Ziprasidone 20 mg 04/14/17 18:06 Geodon Inj IM Q8 PRN Agitation Protocol Ziprasidone 20 mg 04/14/17 18:11 Geodon Cap PO Q8 PRN Agitation Protocol pt was educated about risk, benefits and alternatives of meds. Past Psychiatric History - Past Psychiatric History Previous Treatment History: Inpatient Prior Professional Help: see HPI Prior Psychiatric Treatment: see HPI [facility] hospital: see HPI Duration: see HPI Nature of Treatment: see HPI Explanation of prior treatment: see HPI History of Abuse: see HPI History of ETOH/Drug Use: see HPI History of Family Illness: see HPI Pertinent Medical Hx (Current Medical&Sleep Prob, Allergies): Allergies Allergy/AdvReac Type Severity Reaction Status Date / Time No Known Allergies Allergy Verified 04/14/17 15:12 Donepezil [Aricept] 10 mg PO DAILY 04/12/17 Lamotrigine [Lamictal] 100 mg PO DAILY 04/12/17 Metoprolol Tartrate [Lopressor] 25 mg PO HS 04/12/17 Oxybutynin Chloride [Ditropan Xl] 5 mg PO DAILY 04/12/17 Quetiapine Fumarate [Seroquel] 50 mg PO DAILY 04/12/17 Quetiapine Fumarate [Seroquel] 100 mg PO HS 04/12/17 amLODIPine [Norvasc] 5 mg PO DAILY 04/12/17 Atorvastatin [Lipitor] 10 mg PO DIN tab 04/14/17 Citalopram [celeXA] 10 mg PO DAILY tab 04/14/17 LORazepam [Ativan] 2 mg IM Q6H PRN vial 04/14/17 Nystatin [Nystop Topical Powder] 1 gm TOP BID bottle 04/14/17 OLANZapine [Zyprexa Zydis] 10 mg PO AMHS odt 04/14/17 Oxybutynin Chloride [Ditropan Xl] 5 mg PO DAILY 04/14/17 Valproic Acid [Depakene] 500 mg PO AMHS sgl 04/14/17 Venlafaxine [Effexor XR] 37.5 mg PO DAILY cer 04/14/17 Zaleplon [Sonata] 5 mg PO HS PRN cap 04/14/17 Ziprasidone [Geodon Inj] 20 mg IM Q8H PRN vial 04/14/17 Review of Systems - Review of Systems Systems not reviewed;Unavailable: Acuity of Condition - EENT Eyes: As Per HPI Ears: As Per HPI Nose/Mouth/Throat: As Per HPI - Cardiovascular Cardiovascular: As Per HPI - Respiratory Respiratory: As Per HPI - Gastrointestinal Gastrointestinal: As Per HPI - Genitourinary Genitourinary: As Per HPI - Reproductive: Male Reproductive:Male: As Per HPI - Musculoskeletal Musculoskeletal: As Par HPI - Integumentary Integumentary: As Per HPI - Neurological Neurological: As Per HPI - Psychiatric Psychiatric: As Per HPI - Endocrine Endocrine: As Per HPI - Hematologic/Lymphatic Hematologic: As Per HPI Mental Status Examination - Personal Presentation Personal Presentation: Looks older than stated age - Affect Affect: Flat, Other (at times inappropriate) - Motor Activity Motor Activity: Calm - Reliability in Providing Information Reliability in Providing Information: Poor, due to alteration in thoughts, Poor , due to altered mood, Poor, due to cognitve impairment - Speech Speech: Disorganized - Mood Mood: Other (I am just fine) - Formal Thought Process Formal Thought Process: Hallucinations, Delusions, Paranoia, Loosening of associations - Obsessions/Compulsions Obsessions: Yes (pt was smearing feces and measuring it) - Cognitive Functions Orientation: Person, Place, Situation Sensorium: Alert Attention/Concentration: Easily distracted Abstract Thinking: [place] Estimate of Intelligence: Average Judgement: Intact, as evidence by: Insight regarding need for hospitalization - Risk Risk: Self-mutilation, Diminished functioning - Strength & Assets Inventory Strength & Assets Inventory: Family support, Cooperative - Limitations Limitations: Other (multiple medical issues) DSM 5 DX - DSM 5 DSM 5 Diagnosis: schizoaffective disorder, bipolar type dementia? (pt knows the name of the hospital, knows president) - Recommended/Plan of Treatment Treatment Recommendations and Plan of Treatment: milieu/structure/supportive therapy Lamictal 100mg po daily- started to taper down now pt is on 75mg daily, with plan to wean it off depakote 500mg bid for mood stabilization zyprexa 10mg daily- was increased to 5mg tid and now 10mg bid Effexor XR 150 daily- started to wean off, now is on 37.5, with the plan to d/c celexa was initiated 10mg daily with the plan to increase it further seroqeul was d/c (polypharmacy) other meds resumed medical f/u SW evaluation family involvement 1:1 for safety, pt is unsteady gait, disorganized, psychotic Projected ELOS: 7days Prognosis: guarded Discharge Plan and Discharge Criteria: Pt will be not depressed or manic, will be more hopeful, will be not psychotic or anxious, will be not having thoughts of harming self or others, will be tolerating medications well, will not have major side effects, will be able to function, will not pose threat to self or others. - Smoking Cessation Smoking Cessation Initiated: No Reason for not providing: pt does not smoke
--- NOTE | 2017-04-15 18:58 | CON ---
DATE: 04/15/2017 HISTORY OF PRESENT ILLNESS: The patient is a 77-year-old who was seen by me in his house as a house call. It was brought to my attention that lately, for the last 2-3 days, he has been very aggressive , combative, persistent with his delusional thoughts. He has been stable on his usual psych medicati on including Zyprexa, Risperdal and Effexor, so he was brought to Emergency Room for readjustment of his psych medication. He was on acute care floor. Initial workup for any medical reason is unremark able, so he was admitted to psych floor for readjustment of his medication. PAST MEDICAL HISTORY: Significant for: 1. Hypertension. 2. History of bipolar disorder. 3. Hyperlipidemia. 4. Generalized osteoarthritis with chronic left hip pain. ALLERGIES: He is not allergic to any medications. MEDICATIONS AT HOME: He is on Seroquel 100 at bedtime, 50 mg in the morning, simvastatin 10 mg daily , oxybutynin 5 mg daily, metoprolol 25 at bedtime, Aricept 10 mg daily, amlodipine 5 mg daily, Lamict al 100 mg daily, Effexor 150 daily, and Zyprexa 10 mg daily. SOCIAL HISTORY: He used to be a very heavy smoker. He is not smoking any more. He used to drink a lot, but has quit smoking. REVIEW OF SYSTEMS: Significant for somewhat confusion, disorientation to time and place. PHYSICAL EXAMINATION: GENERAL: He is ambulatory with some limp on walking. VITAL SIGNS: He is afebrile, pulse 82, respirations 20, blood pressure 160/72. LUNGS: Bilateral fair airflow, no rhonchi or crackle. HEART: S1, S2 audible. No murmur. ABDOMEN: Soft, nontender, no rebound, no guarding. NEUROLOGIC: The patient is awake and alert, but confused and disoriented. EXTREMITIES: Bilateral legs, no edema. ASSESSMENT: 1. Dementia. 2. Schizophrenia. 3. History of bipolar disorder. 4. Hypertension. 5. Left hip osteoarthritis. PLAN: The patient is currently in the psych unit to adjust his medication. Will follow up with ____ _ while his psych medication is being adjusted. Sarah Richmond MD cc: [phone] TT: 04/15/2017 18:57:25 Confirmation # [id number] Dictation # [id number] rn
[2017-04-15] MEDS: OLANZapine 5 mg Disintegrating Tab PO SCH (21:59)
--- NOTE | 2017-04-16 15:06 | PN ---
DATE: 04/16/2017 Shortly, patient is a 77-year-old male, long and debilitating history of schizoaffective di sorder, alcohol-induced dementia. The patient has multiple admissions to the psychiatric inpatient [facility] in the past. The patient has history of suicidal attempts. Please see initial note for more det saloni information. The patient was followed up today. The patient is still on 1:1. There is some i mprovement with the patient's presentation. The patient is not aggressive, he is not agitated. The patient became much calmer. The patient currently is on 1:1 because patient has fall precaution as w ell as disorganized and psychotic behavior. Overall as per nursing report, patient does not have any agitation or aggression, but needs constant redirection. The patient is taking medication. No side effect observed or reported. The patient has had fair appetite and sleep. The patient is still pac ing in the hallway and appears to be restless, but in less extent than on the medical floor. The pat ient did not have episodes of smearing feces whatsoever. VITAL SIGNS: Stable. LABORATORIES: No new labs available. [facility] is down. MENTAL STATUS EXAMINATION: The patient appears to have improved personal hygiene, but still patient has not shaved, thompson hair, intense eye contact. At times, speech is incoherent. Mood described as g ood. Affect was constricted, at times mood incongruent, sometimes patient could laugh inappropriatel y. Thought process circumstantial, tangential. Thought content: The patient obviously psychotic an d paranoid, internally preoccupied. The patient denied thoughts of hurting himself or others. Insig ht and judgment are limited. Impulses are better controlled. IMPRESSION: As per history, schizoaffective disorder, bipolar type. The patient also has history of alcohol use dementia. The patient had multiple medical issues. Initially, was admitted to the [facility] for altered mental status. PLAN: The patient is on tapering dose of Lamictal. Depakote is going to be increased accordingly fo r mood stabilization. The patient was started on Celexa and dose will be increased to 30 mg today. Effexor extended release will be discontinued. The patient also will be on sleeping medication at th e nighttime. Milieu structure and supportive therapy. Family is involved into the patient's care. This telegraphic typewriter mechanic spoke to the patient's family the day before yesterday. Treatment plan was discussed in detail. The patient needs further evaluation and stabilization and medication adjustment. Evelyn Coats MD cc: [phone] TT: 04/16/2017 14:49:00 Confirmation # [id number] Dictation # [id number] en
[2017-04-16] MEDS: OLANZapine 5 mg Disintegrating Tab PO SCH (22:08)
[2017-04-17] MEDS: Nystatin 100,000 Units/gm Topical Pow(15 gm) TOP SCH ×2 (08:36→18:33)
--- NOTE | 2017-04-17 16:15 | PCM.PYCHPN ---
Psychiatric Progress Note - Psychiatric Progress Note Patient seen today, length of contact: 30 minutes Patient Chief Complaint: 'GIVE ME A BIG TOILET PAPER' Problems Identified/Issues Discussed: this property underwriter attempted to discuss Suicide/ homicide prevention, past psychiatric h/o, current psychiatric symptoms, medical problems, risk/benefits and alternatives of medications, medications compliance, coping strategies, substance abuse h/o, relapse prevention, importance of follow up with psychiatrist and therapist, discharge plan. minimal special services coordinator because patient has dementia plus chronic mental illness Medical Problems: hypertension, dyslipidemia, osteoarthritis, chronic hip pain, patient also limping but ambulates Diagnostic Results: Lab Results 04/15/17 07:35: Free T4 0.81, TSH 3rd Generation 2.38 04/15/17 07:35: Fasting Glucose 112 H, Triglycerides 87, Cholesterol 188, LDL Cholesterol Direct 116, HDL Cholesterol 54 04/15/17 07:35: RPR Nonreactive Vital Signs Temp Pulse Pulse Resp BP 04/17/17 08:35 109 H 136/73 04/17/17 07:30 99.3 F 109 H 23 136/73 04/16/17 14:00 103 H 136/80 04/15/17 16:57 76 126/72 04/15/17 08:43 82 116/72 04/15/17 07:27 98.7 F 82 20 116/72 04/14/17 21:41 81 113/72 04/14/17 15:25 98 H 20 DSM 5 Symptoms Update: pt has strong and debilitating h/o mental illness, multiple psych admissions, h/ o suicidal attempts, as per family pt has h/o dementaia and alcohol use disorder , pt was not followed up by psychiatrist in the community, med management by , pt was stable on meds for years, but pt was brought in to the ED s/ p AMS, agitation, not sleeping, psychotic, OCD, pt was smearing feces, was aggressive towards family, pt was not able to function, was in danger to self or others. initially pt was seen on the medical side where he was admitted for evaluation AMS. 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 initially pt was presented to be disorganized in his thoughts and behavior, was throwing things, was not sleeping, was refusing to put clothes on. pt has some progress with his symptoms, pt is not agitated, pt is more socially appropriate , no behavioral incidents. pt still presents to be psychotic, thought process is disorganized. pt is in the process of adjustment of his meds, tolerated well, no side effects observed or reported, AIMS 0, no EPS. as per staff pt still has OCD symptoms keep going to the bathroom, unrolling toilet paper, resistant when redirected. DSM 5 Diagnosis: schizoaffective disorder, bipolar type dementia? (pt knows the name of the hospital, knows president) Medication Change: Yes (Depakote increased, Zyprexa continued,Celexa increased) Medical Record Reviewed: Yes Consults ordered or reviewed: medical consultation appreciated Mental Status Examination - Cognitive Function Orientation: Person, Place, Situation Memory: Impaired (chronic mental illness and possible dementia) Attention: Poor Concentration: Poor Association: Loose Fund of Knowledge: WNL - Mood Mood: Other (I'm just fine, how are you doing?) - Affect Affect: Flat, Other (at times inappropriate) - Speech Speech: Slurred - Formal Thought Process Formal Thought Process: Hallucinations (some improvement), Delusions (some improvements), Paranoia (some improvements), Loosening of associations (ssome improvements) - Suicidal Ideation Suicidal Ideation: No - Homicidal Ideation Homicidal Ideation: No Goal/Treatment Plan - Goal/Treatment Plan Need for Continued Stay: Remain at risks for inpatient hospitalization, Severe depression anxiety, Discharge may exacerbated symptoms, Severe functional impairment Progress Toward Problem(s) and Goals/Treatment Plan: milieu/structure/supportive therapy Lamictal 50 mg daily with plan to wean it off depakote 500mg at the morning time and 750 at the nighttime for mood stabilization zyprexa 10mgat the morning time at the nighttime for psychotic symptoms Effexor Effexor was weaned off celexa will be increased to 30 mg daily daily with the plan to increase it further seroqeul was d/c (polypharmacy) other meds resumed medical f/u SW evaluation family involvement 1:1 for safety, pt is unsteady gait, disorganized, psychotic, patient also high risk of falls Estimated Date of D/C: 04/24/17 (We'll monitor closely)
[2017-04-17] MEDS ORDERED: OLANZapine 5 mg Disintegrating Tab PO SCH (22:00)
[2017-04-17] MEDS: OLANZapine 10 mg Disintegrating Tab PO SCH (22:52)
--- NOTE | 2017-04-18 08:47 | PCM.PYCHPN ---
Psychiatric Progress Note - Psychiatric Progress Note Patient seen today, length of contact: 25 minutes Patient Chief Complaint: "all right, good" Problems Identified/Issues Discussed: I reviewed assessment and recent notes. I met with patient at bedside this morning. He appears unkempt, confused and unpredictable. Focus and comprehension are poor. Reports his mood is "all right, good". Affect is odd ( bordering on bizarre) and labile. Nursing notes indicate that patient requires constant redirection on the unit and has been obsessed with toilet paper in the bathroom. Patient mentioned toilet paper multiple times during our interview and apparently he became angry yesterday when limits were set in this regard. Patient is tolerating his medications and denies any new discomfort or pain. There were no new behavioral issues overnight. Diagnostic Results: schizoaffective disorder, bipolar type dementia? (pt knows the name of the hospital, knows president) Medication Change: No ( ) Medical Record Reviewed: Yes (notes, labs, vitals, reports) Mental Status Examination - Cognitive Function Orientation: Person, Place, Situation Memory: Impaired (chronic mental illness and possible dementia) Attention: Poor Concentration: Poor Association: Loose Fund of Knowledge: WNL - Mood Mood: Other ("all right, good") - Affect Affect: Flat, Other (at times inappropriate, oddly related) - Speech Speech: Slurred, Soft - Formal Thought Process Formal Thought Process: Hallucinations (denied today), Delusions (some improvements), Paranoia (some improvements), Loosening of associations (ssome improvements) - Suicidal Ideation Suicidal Ideation: No - Homicidal Ideation Homicidal Ideation: No Goal/Treatment Plan - Goal/Treatment Plan Need for Continued Stay: Remain at risks for inpatient hospitalization, Severe depression anxiety, Discharge may exacerbated symptoms, Severe functional impairment Progress Toward Problem(s) and Goals/Treatment Plan: * c/w current tx and plan * No new weekend labs * Vitals reviewed and noted below: Selected Entries 04/17/17 04/17/17 04/17/17 07:30 08:35 16:45 Temperature 99.3 F Pulse Rate 109 H 109 H 101 H Respiratory 23 Rate Blood Pressure 136/73 136/73 133/86 04/17/17 22:45 Temperature Pulse Rate 88 Respiratory Rate Blood Pressure 132/65 Estimated Date of D/C: 04/24/17 (We'll monitor closely)
[2017-04-18] MEDS: OLANZapine 10 mg Disintegrating Tab PO SCH ×2 (09:46→22:11)
[2017-04-18] MEDS: Nystatin 100,000 Units/gm Topical Pow(15 gm) TOP SCH (12:35)
--- NOTE | 2017-04-18 19:36 | PN ---
DATE: 04/18/2017 SUBJECTIVE: The patient is 77 years old, seen and examined, sitting in chair, seems to be comfortabl e. As per nurse, he is agitated at times, but usually very cooperative. OBJECTIVE: VITAL SIGNS: He is afebrile, pulse 76, respirations 20, blood pressure 146/86. LUNGS: Bilateral fair airflow, no rhonchi or crackle. HEART: S1, S2 audible. ABDOMEN: Soft, nontender, no rebound, no guarding. NEUROLOGIC: He is awake and alert, but confused, disoriented to time, place and person. ASSESSMENT AND PLAN: 1. Schizoaffective disorder. 2. Hypertension. 3. Generalized osteoarthritis. 4. Left hip osteoarthritis. PLAN: Currently, the patient is on Aricept. He is on statin and metoprolol, will continue that and he is on amlodipine 5 mg daily. His psych medication is being adjusted by the psychiatrist. Sarah Richmond MD cc: [phone] TT: 04/18/2017 19:35:39 Confirmation # [id number] Dictation # [id number] dn
[2017-04-19] MEDS: OLANZapine 10 mg Disintegrating Tab PO SCH ×2 (09:22→21:25)
--- NOTE | 2017-04-19 09:22 | PCM.PYCHPN ---
Psychiatric Progress Note - Psychiatric Progress Note Patient seen today, length of contact: 25 minutes Patient Chief Complaint: "all right, good" Problems Identified/Issues Discussed: I reviewed recent notes and met with patient in his room this morning. He still appears unkempt, confused and unpredictable. Patient is also hard of hearing. Focus and comprehension remain poor. Reports his mood is "alright, good ". Affect is odd (bordering on bizarre) and labile. Denies any pain. Nursing notes indicate that patient still requires constant redirection on the unit and has been obsessed with toilet paper in the bathroom. The first thing patient mentioned during our interview was getting him some toilet paper. Patient apparently became angry on Thursday when limits were set in this regard. Patient is tolerating his medications and as mentioned above, he denies any new discomfort or pain. There were no new behavioral issues over the weekend. Diagnostic Results: schizoaffective disorder, bipolar type dementia? (pt knows the name of the hospital, knows president) Medication Change: No ( ) Medical Record Reviewed: Yes (notes, labs, vitals, reports) Mental Status Examination - Cognitive Function Orientation: Person, Place, Situation Memory: Impaired (chronic mental illness and possible dementia) Attention: Poor Concentration: Poor Association: Loose Fund of Knowledge: WNL - Mood Mood: Other ("all right, good") - Affect Affect: Flat, Other (at times inappropriate, oddly related) - Speech Speech: Slurred, Soft - Formal Thought Process Formal Thought Process: Hallucinations (denied today), Delusions (some improvements), Paranoia (some improvements), Loosening of associations (ssome improvements) - Suicidal Ideation Suicidal Ideation: No - Homicidal Ideation Homicidal Ideation: No Goal/Treatment Plan - Goal/Treatment Plan Need for Continued Stay: Remain at risks for inpatient hospitalization, Severe depression anxiety, Discharge may exacerbated symptoms, Severe functional impairment Progress Toward Problem(s) and Goals/Treatment Plan: * c/w current tx and plan * Appreciate f/u by Dr. Richmond on 04/18/17~no new recommendations * No new weekend labs * Vitals reviewed and noted below: Selected Entries 04/18/17 04/18/17 04/18/17 09:08 09:45 22:12 Temperature 98.4 F Pulse Rate 76 76 69 Respiratory 20 Rate Blood Pressure 146/86 146/86 108/52 L Estimated Date of D/C: 04/24/17 (We'll monitor closely)
[2017-04-19] MEDS: Nystatin 100,000 Units/gm Topical Pow(15 gm) TOP SCH (18:04)
[2017-04-20] MEDS: Nystatin 100,000 Units/gm Topical Pow(15 gm) TOP SCH ×3 (08:16→17:54)
[2017-04-20] MEDS: OLANZapine 10 mg Disintegrating Tab PO SCH ×2 (10:52→21:44)
--- NOTE | 2017-04-20 13:03 | PN ---
DATE: 04/20/2017 The patient is a 77-year-old, seen and examined, lying in bed, seems to be comfortable, however, agit ated at times. Eating and tolerating. PHYSICAL EXAMINATION: VITAL SIGNS: He is afebrile, pulse 73, respirations 20, blood pressure 102/62. LUNGS: Bilateral fair airflow, no rhonchi or crackle. HEART: S1, S2 audible. ABDOMEN: Soft, nontender, no rebound, no guarding. NEUROLOGIC: He is awake and alert, answers simple questions, but confused and disoriented to time, p lace and person. ASSESSMENT: 1. Schizoaffective disorder with agitation. 2. Dementia. 3. Hypertension. PLAN: We will continue patient on current medical treatment. Psych medication is being adjusted by psychiatrist. Once stable from psych point of view, discharge plan will be made. Sarah Richmond MD cc: [phone] TT: 04/20/2017 13:03:14 Confirmation # [id number] Dictation # [id number] en
--- NOTE | 2017-04-20 15:17 | PCM.PYCHPN ---
Psychiatric Progress Note - Psychiatric Progress Note Patient seen today, length of contact: 30 minutes Patient Chief Complaint: "what is her first name?" Problems Identified/Issues Discussed: this financial underwriter attempted to discuss Suicide/ homicide prevention, past psychiatric h/o, current psychiatric symptoms, medical problems, risk/benefits and alternatives of medications, medications compliance, coping strategies, substance abuse h/o, relapse prevention, importance of follow up with psychiatrist and therapist, discharge plan. minimal medical assembly because patient has dementia plus chronic mental illness Medical Problems: hypertension, dyslipidemia, osteoarthritis, chronic hip pain, patient also limping but ambulates Diagnostic Results: Lab Results 04/15/17 07:35: Free T4 0.81, TSH 3rd Generation 2.38 04/15/17 07:35: Fasting Glucose 112 H, Triglycerides 87, Cholesterol 188, LDL Cholesterol Direct 116, HDL Cholesterol 54 04/15/17 07:35: RPR Nonreactive Vital Signs Temp Pulse Pulse Resp BP 04/17/17 08:35 109 H 136/73 04/17/17 07:30 99.3 F 109 H 23 136/73 04/16/17 14:00 103 H 136/80 04/15/17 16:57 76 126/72 04/15/17 08:43 82 116/72 04/15/17 07:27 98.7 F 82 20 116/72 04/14/17 21:41 81 113/72 04/14/17 15:25 98 H 20 Temp Pulse Resp BP Pulse Ox 97.9 F 76 20 102/62 04/20/17 07:53 04/20/17 08:59 04/20/17 07:53 04/20/17 08:59 DSM 5 Symptoms Update: pt has strong and debilitating h/o mental illness, multiple psych admissions, h/ o suicidal attempts, as per family pt has h/o dementaia and alcohol use disorder , pt was not followed up by psychiatrist in the community, med management by , pt was stable on meds for years, but pt was brought in to the ED s/ p AMS, agitation, not sleeping, psychotic, OCD, pt was smearing feces, was aggressive towards family, pt was not able to function, was in danger to self or others. patient was seen at the dining area, patient observed eating, seems to have good appetite, patient is disengaged into the conversation, no eye contact, there is no meaningful conversation possible. Patient was repeating"what is your first name, what is your first name, what is her first name?" on the medical floor patient presented to be disorganized in his thoughts and behavior, was throwing things, was not sleeping, was refusing to put clothes on. pt has some progress with his symptoms, pt is not agitated, pt is more socially appropriate, no behavioral incidents. pt still presents to be psychotic , thought process is disorganized. patient has OCD symptoms, patient is skipped going to the bathroom, patient is wiping himself, symptoms enjoying this process very much. pt is in the process of adjustment of his meds, tolerated well, no side effects observed or reported, AIMS 0, no EPS. DSM 5 Diagnosis: schizoaffective disorder, bipolar type dementia? (pt knows the name of the hospital, knows president) Medication Change: Yes (Lamictal was decreased dose) Medical Record Reviewed: Yes (notes, labs, vitals, reports) Consults ordered or reviewed: medical consultation appreciated Mental Status Examination - Cognitive Function Orientation: Person, Place, Situation Memory: Impaired (chronic mental illness and possible dementia) Attention: Poor Concentration: Poor Association: Loose Fund of Knowledge: WNL - Mood Mood: Other ("all right, good") - Affect Affect: Flat, Other (at times inappropriate, oddly related) - Speech Speech: Slurred, Soft - Formal Thought Process Formal Thought Process: Hallucinations (denied today), Delusions (some improvements), Paranoia (some improvements), Loosening of associations - Suicidal Ideation Suicidal Ideation: No - Homicidal Ideation Homicidal Ideation: No Goal/Treatment Plan - Goal/Treatment Plan Need for Continued Stay: Remain at risks for inpatient hospitalization, Severe depression anxiety, Discharge may exacerbated symptoms, Severe functional impairment Progress Toward Problem(s) and Goals/Treatment Plan: milieu/structure/supportive therapy Lamictal 25 mg daily with plan to wean it off depakote 500mg at the morning time and 750 at the nighttime for mood stabilization we'll check Depakote level tomorrow zyprexa 10mgat the morning time at the nighttime for psychotic symptoms Effexor Effexor was weaned off celexa 30 mg daily daily with the plan to increase it further seroqeul was d/c (polypharmacy) other meds resumed medical f/u SW evaluation family involvement 1:1 for safety, pt is unsteady gait, disorganized, psychotic, patient also high risk of falls Estimated Date of D/C: 04/24/17 (We'll monitor closely)
[2017-04-21] MEDS: Nystatin 100,000 Units/gm Topical Pow(15 gm) TOP SCH ×2 (08:51→15:10)
[2017-04-21] MEDS: OLANZapine 10 mg Disintegrating Tab PO SCH ×2 (09:00→22:14)
--- NOTE | 2017-04-21 16:18 | PCM.PYCHPN ---
Psychiatric Progress Note - Psychiatric Progress Note Patient seen today, length of contact: 30 minutes Patient Chief Complaint: "how do I look?" Problems Identified/Issues Discussed: this singer songwriter attempted to discuss Suicide/ homicide prevention, past psychiatric h/o, current psychiatric symptoms, medical problems, risk/benefits and alternatives of medications, medications compliance, coping strategies, substance abuse h/o, relapse prevention, importance of follow up with psychiatrist and therapist, discharge plan. 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 patient has dementia plus chronic mental illness Medical Problems: hypertension, dyslipidemia, osteoarthritis, chronic hip pain, patient also limping but ambulates Diagnostic Results: Lab Results 04/15/17 07:35: Free T4 0.81, TSH 3rd Generation 2.38 04/15/17 07:35: Fasting Glucose 112 H, Triglycerides 87, Cholesterol 188, LDL Cholesterol Direct 116, HDL Cholesterol 54 04/15/17 07:35: RPR Nonreactive Vital Signs Temp Pulse Pulse Resp BP 04/17/17 08:35 109 H 136/73 04/17/17 07:30 99.3 F 109 H 23 136/73 04/16/17 14:00 103 H 136/80 04/15/17 16:57 76 126/72 04/15/17 08:43 82 116/72 04/15/17 07:27 98.7 F 82 20 116/72 04/14/17 21:41 81 113/72 04/14/17 15:25 98 H 20 Temp Pulse Resp BP Pulse Ox 97.9 F 76 20 102/62 04/20/17 07:53 04/20/17 08:59 04/20/17 07:53 04/20/17 08:59 Laboratory Results - last 72 hr 04/21/17 07:00 Valproic Acid 84 DSM 5 Symptoms Update: pt has strong and debilitating h/o mental illness, multiple psych admissions, h/ o suicidal attempts, as per family pt has h/o dementaia and alcohol use disorder , pt was not followed up by psychiatrist in the community, med management by , pt was stable on meds for years, but pt was brought in to the ED s/ p AMS, agitation, not sleeping, psychotic, OCD, pt was smearing feces, was aggressive towards family, pt was not able to function, was in danger to self or others. patient was seen at the hallway, there is no option to have meaningful conversation at present moment. At the same time patient has some improvement with the presentation, patient was less obsessed with toilet paper,patient does not have agitation, no aggression, patient ambulates with a stating gait. At present moment will discontinue one-to-one observation. As per staff report patient had angry outburst and try to throw remote-control towards the TV set yesterday, was redirected immediately. pt is in the process of adjustment of his meds, tolerated well, no side effects observed or reported, AIMS 0, no EPS. DSM 5 Diagnosis: schizoaffective disorder, bipolar type dementia? (pt knows the name of the hospital, knows president) Medication Change: Yes (adjusted yesterday) Medical Record Reviewed: Yes (notes, labs, vitals, reports) Consults ordered or reviewed: medical consultation appreciated Mental Status Examination - Cognitive Function Orientation: Person, Place, Situation Memory: Impaired (chronic mental illness and possible dementia) Attention: Poor (ome improvement) Concentration: Poor (some improvement) Association: Loose Fund of Knowledge: WNL - Mood Mood: Other ("all right, good") - Affect Affect: Flat, Other (at times inappropriate, oddly related) - Speech Speech: Slurred, Soft - Formal Thought Process Formal Thought Process: Hallucinations (denied today), Delusions (some improvements), Paranoia (some improvements), Loosening of associations - Suicidal Ideation Suicidal Ideation: No - Homicidal Ideation Homicidal Ideation: No Goal/Treatment Plan - Goal/Treatment Plan Need for Continued Stay: Remain at risks for inpatient hospitalization, Severe depression anxiety, Discharge may exacerbated symptoms, Severe functional impairment Progress Toward Problem(s) and Goals/Treatment Plan: milieu/structure/supportive therapy Lamictal 25 mg daily with plan to wean it off depakote 500mg at the morning time and 750 at the nighttime for mood stabilization depakote level is 84 04/21/2017 zyprexa 10mgat the morning time at the nighttime for psychotic symptoms Effexor Effexor was weaned off celexa 30 mg daily daily with the plan to increase it further seroqeul was d/c (polypharmacy) other meds resumed medical f/u SW evaluation family involvement 1:1 was discontinued today Estimated Date of D/C: 04/24/17 (We'll monitor closely)
--- NOTE | 2017-04-21 21:56 | PN ---
DATE: 04/21/2017 SUBJECTIVE: The patient is a 77-year-old seen and examined, seemed to be agitated at times. No naus ea, vomiting, no diarrhea. PHYSICAL EXAMINATION: VITAL SIGNS: He is afebrile, pulse 80, respirations 18, blood pressure 147/85. LUNGS: Bilateral fair airflow, no rhonchi or crackle. HEART: S1, S2 audible. ABDOMEN: Soft, nontender, no rebound, no guarding. NEUROLOGIC: The patient is awake and alert, but confused and disoriented. ASSESSMENT AND PLAN: 1. Schizoaffective disorder. 2. Agitation. 3. Hypertension. 4. Hyperlipidemia. 5. Generalized osteoarthritis. 6. Chronic left hip pain. PLAN: The patient is medically stable. Will continue psych medication as recommended by trinidad ma. We will follow up along with you. Sarah Richmond MD cc: [phone] TT: 04/21/2017 21:55:51 Confirmation # [id number] Dictation # [id number] an
[2017-04-22] MEDS: Nystatin 100,000 Units/gm Topical Pow(15 gm) TOP SCH ×2 (08:35→16:21)
--- NOTE | 2017-04-22 16:02 | PCM.PYCHPN ---
Psychiatric Progress Note - Psychiatric Progress Note Patient seen today, length of contact: 30 minutes Patient Chief Complaint: "where is your home?" Problems Identified/Issues Discussed: this race and sports book writer attempted to discuss Suicide/ homicide prevention, past psychiatric h/o, current psychiatric symptoms, medical problems, risk/benefits and alternatives of medications, medications compliance, coping strategies, substance abuse h/o, relapse prevention, importance of follow up with psychiatrist and therapist, discharge plan. minimal receptionist secretary because patient has dementia plus chronic mental illness Medical Problems: hypertension, dyslipidemia, osteoarthritis, chronic hip pain, patient also limping but ambulates Diagnostic Results: Lab Results 04/15/17 07:35: Free T4 0.81, TSH 3rd Generation 2.38 04/15/17 07:35: Fasting Glucose 112 H, Triglycerides 87, Cholesterol 188, LDL Cholesterol Direct 116, HDL Cholesterol 54 04/15/17 07:35: RPR Nonreactive Vital Signs Temp Pulse Pulse Resp BP 04/17/17 08:35 109 H 136/73 04/17/17 07:30 99.3 F 109 H 23 136/73 04/16/17 14:00 103 H 136/80 04/15/17 16:57 76 126/72 04/15/17 08:43 82 116/72 04/15/17 07:27 98.7 F 82 20 116/72 04/14/17 21:41 81 113/72 04/14/17 15:25 98 H 20 Temp Pulse Resp BP Pulse Ox 97.9 F 76 20 102/62 04/20/17 07:53 04/20/17 08:59 04/20/17 07:53 04/20/17 08:59 Laboratory Results - last 72 hr 04/21/17 07:00 Valproic Acid 84 Temp Pulse Resp BP Pulse Ox 98.6 F 77 20 138/89 04/22/17 07:49 04/22/17 07:49 04/22/17 07:49 04/22/17 07:49 DSM 5 Symptoms Update: pt has strong and debilitating h/o mental illness, multiple psych admissions, h/ o suicidal attempts, as per family pt has h/o dementaia and alcohol use disorder , pt was not followed up by psychiatrist in the community, med management by , pt was stable on meds for years, but pt was brought in to the ED s/ p AMS, agitation, not sleeping, psychotic, OCD, pt was smearing feces, was aggressive towards family, pt was not able to function, was in danger to self or others. patient was seen at the dinning area, there is no option to have meaningful conversation at present moment, pt was asking "where is your home?", pt has OCD symptoms, as per staff pt keeps going to the bathroom, keep clotting the toilet with towels and toilet papers. At the same time patient has some improvement with the presentation, patient does not have agitation, no aggression, patient ambulates with a steady gait. 1: 1 WAS D/C YESTERDAY As per staff pt is calmer. pt is in the process of adjustment of his meds, tolerated well, no side effects observed or reported, AIMS 0, no EPS. DSM 5 Diagnosis: schizoaffective disorder, bipolar type dementia? (pt knows the name of the hospital, knows president) Medication Change: Yes (celexa will be decreased, prozac started for OCD, depressin and anxiety) Medical Record Reviewed: Yes (notes, labs, vitals, reports) Consults ordered or reviewed: medical consultation appreciated Mental Status Examination - Cognitive Function Orientation: Person, Place, Situation Memory: Impaired (chronic mental illness and possible dementia) Attention: Poor (some improvement) Concentration: Poor (some improvement) Association: Loose Fund of Knowledge: WNL - Mood Mood: Other ("all right, good") - Affect Affect: Flat, Other (at times inappropriate, oddly related) - Speech Speech: Slurred, Soft - Formal Thought Process Formal Thought Process: Hallucinations (denied today), Delusions (some improvements), Paranoia (some improvements), Loosening of associations - Suicidal Ideation Suicidal Ideation: No - Homicidal Ideation Homicidal Ideation: No Goal/Treatment Plan - Goal/Treatment Plan Need for Continued Stay: Remain at risks for inpatient hospitalization, Severe depression anxiety, Discharge may exacerbated symptoms, Severe functional impairment Progress Toward Problem(s) and Goals/Treatment Plan: milieu/structure/supportive therapy Lamictal 25 mg daily with plan to wean it off depakote 500mg at the morning time and 750 at the nighttime for mood stabilization depakote level is 84 04/21/2017 zyprexa 10mgat the morning time at the nighttime for psychotic symptoms Effexor Effexor was weaned off celexa will be decreased to 20mg , will wean off prozac will be started 20mg for MDD and OCD seroqeul was d/c (polypharmacy) other meds resumed medical f/u SW evaluation family involvement 1:1 was discontinued 04/21/17 Estimated Date of D/C: 04/24/17 (We'll monitor closely)
[2017-04-22] MEDS: OLANZapine 10 mg Disintegrating Tab PO SCH ×2 (16:21→21:15)
--- NOTE | 2017-04-22 19:01 | PN ---
DATE: 04/22/2017 The patient is a 77-year-old, seen and examined. He seems to be groggy and drowsy. He was just give n Ativan because he was agitated. He was pacing back and forth. PHYSICAL EXAMINATION: GENERAL: He is sleepy, but arousable, sitting in chair. VITAL SIGNS: He is afebrile, pulse 77, respirations 20, blood pressure 138/89. LUNGS: Bilateral fair airflow, no rhonchi or crackle. HEART: S1, S2 audible. No murmur. ABDOMEN: Soft, nontender, no rebound, no guarding. NEUROLOGIC: The patient is sleepy, but arousable. ASSESSMENT AND PLAN: 1. Paranoid and schizoaffective disorder. 2. Obsessive compulsive disorder. 3. Hypertension. 4. Hyperlipidemia. 5. Generalized osteoarthritis. 6. Left hip osteoarthritis. The patient's 1:1 observation is discontinued. He is on Depakote. He is on Zyprexa. Effexor is marguerite ng weaned off and he is started on Prozac for obsessive compulsive disorder. I spoke to daughter, farida echols wants to get in touch with Dr. Rivas. She attempted twice, but was unable to get in touch with psyc hiatrist. She has a couple of concerns. I will also talk to Dr. Rivas about that. Sarah Richmond MD cc: [phone] TT: 04/22/2017 19:01:17 Confirmation # [id number] Dictation # [id number] en
[2017-04-23] MEDS: OLANZapine 10 mg Disintegrating Tab PO SCH ×2 (11:07→22:02)
[2017-04-23] MEDS: Nystatin 100,000 Units/gm Topical Pow(15 gm) TOP SCH ×2 (14:08→18:06)
--- NOTE | 2017-04-23 15:34 | PCM.PYCHPN ---
Psychiatric Progress Note - Psychiatric Progress Note Patient seen today, length of contact: 30 minutes Patient Chief Complaint: "how do I look Problems Identified/Issues Discussed: this quality analyst/technical writer attempted to discuss Suicide/ homicide prevention, past psychiatric h/o, current psychiatric symptoms, medical problems, risk/benefits and alternatives of medications, medications compliance, coping strategies, substance abuse h/o, relapse prevention, importance of follow up with psychiatrist and therapist, discharge plan. minimal hospital receptionist because patient has dementia plus chronic mental illness Medical Problems: hypertension, dyslipidemia, osteoarthritis, chronic hip pain, patient also limping but ambulates Diagnostic Results: Lab Results 04/15/17 07:35: Free T4 0.81, TSH 3rd Generation 2.38 04/15/17 07:35: Fasting Glucose 112 H, Triglycerides 87, Cholesterol 188, LDL Cholesterol Direct 116, HDL Cholesterol 54 04/15/17 07:35: RPR Nonreactive Vital Signs Temp Pulse Pulse Resp BP 04/17/17 08:35 109 H 136/73 04/17/17 07:30 99.3 F 109 H 23 136/73 04/16/17 14:00 103 H 136/80 04/15/17 16:57 76 126/72 04/15/17 08:43 82 116/72 04/15/17 07:27 98.7 F 82 20 116/72 04/14/17 21:41 81 113/72 04/14/17 15:25 98 H 20 Temp Pulse Resp BP Pulse Ox 97.9 F 76 20 102/62 04/20/17 07:53 04/20/17 08:59 04/20/17 07:53 04/20/17 08:59 Laboratory Results - last 72 hr 04/21/17 07:00 Valproic Acid 84 Temp Pulse Resp BP Pulse Ox 98.6 F 77 20 138/89 04/22/17 07:49 04/22/17 07:49 04/22/17 07:49 04/22/17 07:49 DSM 5 Symptoms Update: pt has strong and debilitating h/o mental illness, multiple psych admissions, h/ o suicidal attempts, as per family pt has h/o dementaia and alcohol use disorder , pt was not followed up by psychiatrist in the community, med management by , pt was stable on meds for years, but pt was brought in to the ED s/ p AMS, agitation, not sleeping, psychotic, OCD, pt was smearing feces, was aggressive towards family, pt was not able to function, was in danger to self or others. patient was seen at the dinning area, there is no option to have meaningful conversation at present moment, pt was asking "where is your home?", pt has OCD symptoms, as per staff pt keeps going to the bathroom, keep clotting the toilet with towels and toilet papers. as per staff patient urinated on the floor and fell overnight.patient didn't keep hurt himself, was evaluated by medical team, as per assessment was mechanical fall. At the same time patient has some improvement with the presentation, patient does not have agitation, no aggression, patient ambulates with a steady gait. As per staff pt is calmer. pt is in the process of adjustment of his meds, tolerated well, no side effects observed or reported, AIMS 0, no EPS. DSM 5 Diagnosis: schizoaffective disorder, bipolar type dementia? (pt knows the name of the hospital, knows president) Medication Change: Yes (celexa will be decreased, prozac started for OCD, depressin and anxiety) Medical Record Reviewed: Yes (notes, labs, vitals, reports) Consults ordered or reviewed: medical consultation appreciated Mental Status Examination - Cognitive Function Orientation: Person, Place, Situation Memory: Impaired (chronic mental illness and possible dementia) Attention: Poor (some improvement) Concentration: Poor (some improvement) Association: Loose Fund of Knowledge: WNL - Mood Mood: Other ("all right, good") - Affect Affect: Flat, Other (at times inappropriate, oddly related) - Speech Speech: Slurred, Soft - Formal Thought Process Formal Thought Process: Hallucinations (denied today), Delusions (some improvements), Paranoia (some improvements), Loosening of associations - Suicidal Ideation Suicidal Ideation: No - Homicidal Ideation Homicidal Ideation: No Goal/Treatment Plan - Goal/Treatment Plan Need for Continued Stay: Remain at risks for inpatient hospitalization, Severe depression anxiety, Discharge may exacerbated symptoms, Severe functional impairment Progress Toward Problem(s) and Goals/Treatment Plan: milieu/structure/supportive therapy Lamictal 25 mg daily with plan to wean it off depakote 500mg at the morning time and 750 at the nighttime for mood stabilization depakote level is 84 04/21/2017 zyprexa 10mgat the morning time at the nighttime for psychotic symptoms Effexor Effexor was weaned off celexa will be decreased to 10mg , will wean off prozac will be started 20mg for MDD and OCD seroqeul was d/c (polypharmacy) other meds resumed medical f/u SW evaluation family involvement 1:1 was discontinued 04/21/17 Estimated Date of D/C: 04/24/17 (We'll monitor closely)
--- NOTE | 2017-04-23 18:39 | PN ---
DATE: 04/23/2017 SUBJECTIVE: The patient is a 77-year-old, seen and examined, seems to be agitated at times. Most of the time he is cooperative. He is having obsessive compulsive ideas, talking about toilet paper. PHYSICAL EXAMINATION: VITAL SIGNS: He is afebrile, pulse 73, respirations 20, blood pressure 110/56. LUNGS: Bilateral fair airflow, no rhonchi or crackle. HEART: S1, S2 audible. ABDOMEN: Soft, nontender, no rebound, no guarding. NEUROLOGIC: The patient is awake and alert, confused and disoriented. PLAN: It is hard to carry on an intelligent conversation. This patient has obsessive compulsive dis order. He has been started on Prozac and psychiatrist is still in the process of making adjustment o f the medication. Psychiatric input noted and appreciated. Lamictal is being weaned off and the pat ient has been started on Depakote for mood stabilization. Currently he is on Zyprexa 10 mg twice a d ay and he is being weaned off of Effexor and started on Prozac. Discussed with the patient's daughter , Lo. She does not seem to be satisfied with dad's progress. She was told by the [facility] that he is about to be discharged, but she states she cannot take care of him in this agit ated state. I will talk to Dr. Rivas in a.m. Sarah Richmond MD cc: [phone] TT: 04/23/2017 18:39:16 Confirmation # [id number] Dictation # [id number] delores
[2017-04-24] MEDS: Nystatin 100,000 Units/gm Topical Pow(15 gm) TOP SCH ×2 (09:00→17:27)
[2017-04-24] MEDS: OLANZapine 10 mg Disintegrating Tab PO SCH ×2 (09:25→22:02)
--- NOTE | 2017-04-24 15:16 | PCM.PYCHPN ---
Psychiatric Progress Note - Psychiatric Progress Note Patient seen today, length of contact: 30 minutes Patient Chief Complaint: "I remember you..." Problems Identified/Issues Discussed: this story writer attempted to discuss Suicide/ homicide prevention, past psychiatric h/o, current psychiatric symptoms, medical problems, risk/benefits and alternatives of medications, medications compliance, coping strategies, substance abuse h/o, relapse prevention, importance of follow up with psychiatrist and therapist, discharge plan. 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 because patient has dementia plus chronic mental illness Medical Problems: hypertension, dyslipidemia, osteoarthritis, chronic hip pain, patient also limping but ambulates Diagnostic Results: Lab Results 04/15/17 07:35: Free T4 0.81, TSH 3rd Generation 2.38 04/15/17 07:35: Fasting Glucose 112 H, Triglycerides 87, Cholesterol 188, LDL Cholesterol Direct 116, HDL Cholesterol 54 04/15/17 07:35: RPR Nonreactive Vital Signs Temp Pulse Pulse Resp BP 04/17/17 08:35 109 H 136/73 04/17/17 07:30 99.3 F 109 H 23 136/73 04/16/17 14:00 103 H 136/80 04/15/17 16:57 76 126/72 04/15/17 08:43 82 116/72 04/15/17 07:27 98.7 F 82 20 116/72 04/14/17 21:41 81 113/72 04/14/17 15:25 98 H 20 Temp Pulse Resp BP Pulse Ox 97.9 F 76 20 102/62 04/20/17 07:53 04/20/17 08:59 04/20/17 07:53 04/20/17 08:59 Laboratory Results - last 72 hr 04/21/17 07:00 Valproic Acid 84 Temp Pulse Resp BP Pulse Ox 98.6 F 77 20 138/89 04/22/17 07:49 04/22/17 07:49 04/22/17 07:49 04/22/17 07:49 Temp Pulse Resp BP Pulse Ox 97.4 F L 109 H 20 121/74 04/24/17 07:49 04/24/17 09:31 04/24/17 07:49 04/24/17 09:31 DSM 5 Symptoms Update: pt has strong and debilitating h/o mental illness, multiple psych admissions, h/ o suicidal attempts, as per family pt has h/o dementaia and alcohol use disorder , pt was not followed up by psychiatrist in the community, med management by , pt was stable on meds for years, but pt was brought in to the ED s/ p AMS, agitation, not sleeping, psychotic, OCD, pt was smearing feces, was aggressive towards family, pt was not able to function, was in danger to self or others. patient was seen at the treatment team room, there is no option to have meaningful conversation at present moment, patient was staring at this story writer, intense eye contact, "I remember you", patient was fixated on box of tissues, keep repeating "may have it", patient still has OCD symptoms, as per staff pt keeps going to the bathroom, keep clotting the toilet with towels and toilet papers. as per staff patient slept through the night, enjoys movies, snack, today was observed trying to walk naked in the unit, was redirected.. No agitation, no aggression. pt is off 1:1. pt is in the process of adjustment of his meds, tolerated well, no side effects observed or reported, AIMS 0, no EPS. DSM 5 Diagnosis: schizoaffective disorder, bipolar type dementia? (pt knows the name of the hospital, knows president) Medication Change: Yes (Celexa discontinued, Lamictal discontinued) Medical Record Reviewed: Yes (notes, labs, vitals, reports) Consults ordered or reviewed: medical consultation appreciated Mental Status Examination - Cognitive Function Orientation: Person (he), Place, Situation Memory: Impaired (chronic mental illness and possible dementia) Attention: Poor (some improvement) Concentration: Poor (some improvement) Association: Loose Fund of Knowledge: WNL - Mood Mood: Other ("all right, good") - Affect Affect: Flat, Other (at times inappropriate, oddly related) - Speech Speech: Slurred, Soft - Formal Thought Process Formal Thought Process: Hallucinations (denied today), Delusions (some improvements), Paranoia (some improvements), Loosening of associations - Suicidal Ideation Suicidal Ideation: No - Homicidal Ideation Homicidal Ideation: No Goal/Treatment Plan - Goal/Treatment Plan Need for Continued Stay: Remain at risks for inpatient hospitalization, Severe depression anxiety, Discharge may exacerbated symptoms, Severe functional impairment Progress Toward Problem(s) and Goals/Treatment Plan: milieu/structure/supportive therapy Lamictal was weaned off depakote 500mg at the morning time and 750 at the nighttime for mood stabilization depakote level is 84 04/21/2017 zyprexa 10mgat the morning time at the nighttime for psychotic symptoms Effexor Effexor was weaned off celexa weaned off prozac 40mg for MDD and OCD seroqeul was d/c (polypharmacy) other meds resumed medical f/u SW evaluation family involvement 1:1 was discontinued 04/21/17 Estimated Date of D/C: 04/28/17 (We'll monitor closely)
--- NOTE | 2017-04-24 20:24 | PN ---
DATE: 04/24/2017 SUBJECTIVE: The patient is a 77-year-old, seen and examined sitting in the day room, participating i n activity. According to nurse, he does not seem to be that aggressive but still has obsessive compu lsion for certain things. PHYSICAL EXAMINATION: GENERAL: He is awake and alert, cannot carry a conversation with him. Sometimes answers appropriate ly, sometimes he does not. VITAL SIGNS: He is afebrile, pulse 72, respirations 20, blood pressure 102/56. LUNGS: Bilateral fair airflow, no rhonchi or crackle. HEART: S1, S2 audible. ABDOMEN: Soft, nontender, no rebound, no guarding. NEUROLOGIC: The patient is awake and alert, but noncommunicative. ASSESSMENT AND PLAN: 1. Schizoaffective disorder. 2. Obsessive compulsive disorder with mood disorder. 3. Degenerative disk disease and hip osteoarthritis. PLAN: I discussed with Dr. Rivas at length. She is trying to adjust his medication. His aggressive behavior is significantly improved. He is not on 1:1 anymore. However, his OCD needs to be addresse d and she is in the process of adjusting medication. Once his behavior is stable, will make discharg e plan, hopefully early next week. Sarah Richmond MD cc: [phone] TT: 04/24/2017 20:23:47 Confirmation # [id number] Dictation # [id number] valentina
[2017-04-25] MEDS ORDERED: OLANZapine 5 mg Disintegrating Tab PO SCH (08:00)
[2017-04-25] MEDS: Nystatin 100,000 Units/gm Topical Pow(15 gm) TOP SCH ×2 (08:13→17:10)
[2017-04-25] MEDS: OLANZapine 10 mg Disintegrating Tab PO SCH ×2 (08:15→22:04)
--- NOTE | 2017-04-25 09:24 | PCM.PYCHPN ---
Psychiatric Progress Note - Psychiatric Progress Note Patient seen today, length of contact: 25 minutes Patient Chief Complaint: "pretty good" Problems Identified/Issues Discussed: I reviewed recent notes and met with patient in his room this morning. He still appears unkempt and still has periods of confusion on the unit. Patient is aware that he's in the hospital and that the month is May however he does not know current year. He appears preoccupied and distracted. Patient is also hard of hearing. Focus and comprehension remain poor. Reports his mood is "pretty good". Affect is still odd and labile. Denies any pain. Nursing notes indicate that patient requires less redirection on the unit and has been less obsessed with toilet paper. Patient doesn't mention toilet paper at all during my visit this morning Patient is tolerating his medications and denies any new discomfort or pain. There were no new behavioral issues overnight. Diagnostic Results: schizoaffective disorder, bipolar type dementia? Medication Change: No ( ) Medical Record Reviewed: Yes (notes, labs, vitals, reports) Mental Status Examination - Cognitive Function Orientation: Person (he), Place, Situation Memory: Impaired (chronic mental illness and possible dementia) Attention: Poor (some improvement) Concentration: Poor (some improvement) Association: Loose Fund of Knowledge: WNL - Mood Mood: Other ("pretty good") - Affect Affect: Flat, Other (at times inappropriate, oddly related) - Speech Speech: Soft - Formal Thought Process Formal Thought Process: Hallucinations (denied today), Delusions (some improvements), Paranoia (some improvements), Loosening of associations - Suicidal Ideation Suicidal Ideation: No - Homicidal Ideation Homicidal Ideation: No Goal/Treatment Plan - Goal/Treatment Plan Need for Continued Stay: Remain at risks for inpatient hospitalization, Severe depression anxiety, Discharge may exacerbated symptoms, Severe functional impairment Progress Toward Problem(s) and Goals/Treatment Plan: * c/w current tx and plan * No new weekend labs * Vitals reviewed and noted below: Selected Entries 04/24/17 04/24/17 04/24/17 07:49 09:31 20:00 Temperature 97.4 F L Pulse Rate 72 109 H 75 Respiratory 20 18 Rate Blood Pressure 102/56 L 121/74 116/77 Estimated Date of D/C: 04/28/17 (We'll monitor closely)
--- NOTE | 2017-04-25 13:10 | PN ---
DATE: 04/25/2017 SUBJECTIVE: The patient is a 77-year-old seen and examined, sitting in chair. He is very sleepy and arousable. On verbal command, he opened his mouth. He is opening his eyes. I spoke to the nurse. He was just given Ativan. He otherwise is eating and tolerating. His aggressive behavior has impro pee. PHYSICAL EXAMINATION: VITAL SIGNS: He is afebrile, pulse 96, respirations 20, blood pressure 156/87. LUNGS: Bilateral good airflow, no rhonchi or crackle. HEART: S1, S2 audible. ABDOMEN: Soft, nontender, obese. No hepatosplenomegaly. NEUROLOGIC: The patient is awake and alert, communicative, ambulatory. ASSESSMENT: 1. Schizoaffective disorder. 2. Generalized osteoarthritis. 3. Hypertension. 4. History of bipolar disorder with dementia. PLAN: Discussed with Dr. Rivas at length. Continue current medication. She is in the process of adj usting his medication for mood disorder. His aggressive behavior has improved a lot. Sarah Richmond MD cc: [phone] TT: 04/25/2017 13:09:17 Confirmation # [id number] Dictation # [id number] tn
[2017-04-26] MEDS: Nystatin 100,000 Units/gm Topical Pow(15 gm) TOP SCH ×2 (09:11→17:31)
[2017-04-26] MEDS: OLANZapine 10 mg Disintegrating Tab PO SCH (09:12)
--- NOTE | 2017-04-26 09:27 | PCM.PYCHPN ---
Psychiatric Progress Note - Psychiatric Progress Note Patient seen today, length of contact: 25 minutes Problems Identified/Issues Discussed: I reviewed recent notes and met with patient in the dayroom today. He still appears unkempt and has periods of confusion on the unit. He is superficially aware that he is hospitalized however he is unaware of current month, year or circumstances. Affect appears quite preoccupied and distracted. Remains oddly related with some blocking noted today. Focus and comprehension remain poor. Staff indicate the patient has been more obsessed with toilet paper and towels again. Patient does request these items multiple times during my visit and does not appear to be interested in having a productive conversation about his current symptoms and functioning. He will not talk about his current mood however he absently denies feeling either good, bad or anxious. Patient reports that he slept well and denies having any pain or discomfort at this time. He denied having hallucinations and though notably preoccupied, he is not responding to internal stimuli. Insight and judgment are poor and patient remains unpredictable Diagnostic Results: schizoaffective disorder, bipolar type dementia? Medication Change: Yes (Zyprexa increased to 10 mg AM and 12.5 mg HS for disorganization) Medical Record Reviewed: Yes (notes, labs, vitals, reports) Mental Status Examination - Cognitive Function Orientation: Person (he), Place, Situation Memory: Impaired (chronic mental illness and possible dementia) Attention: Poor (some improvement) Concentration: Poor (some improvement) Association: Loose Fund of Knowledge: WNL - Mood Mood: Other ( ) - Affect Affect: Flat, Other (at times inappropriate, oddly related) - Speech Speech: Soft - Formal Thought Process Formal Thought Process: Hallucinations (denied today), Delusions (some improvements), Paranoia (some improvements), Loosening of associations - Suicidal Ideation Suicidal Ideation: No - Homicidal Ideation Homicidal Ideation: No Goal/Treatment Plan - Goal/Treatment Plan Need for Continued Stay: Remain at risks for inpatient hospitalization, Severe depression anxiety, Discharge may exacerbated symptoms, Severe functional impairment Progress Toward Problem(s) and Goals/Treatment Plan: * c/w current tx and plan * Appreciate f/u by Dr. Richmond on 04/25/17~no new recommendations * Zyprexa increased to 10 mg AM and 12.5 mg HS for disorganization * No new weekend labs * Vitals reviewed and noted below: Selected Entries 04/25/17 04/25/17 08:00 16:33 Temperature 98.1 F Pulse Rate 96 H 89 Respiratory 20 Rate Blood Pressure 156/87 H 124/76 Estimated Date of D/C: 04/28/17 (We'll monitor closely)
[2017-04-26] MEDS: OLANZapine 5 mg Disintegrating Tab PO SCH (21:00)
[2017-04-27] MEDS: OLANZapine 10 mg Disintegrating Tab PO SCH (09:02)
--- NOTE | 2017-04-27 09:37 | PCM.PYCHPN ---
Psychiatric Progress Note - Psychiatric Progress Note Patient seen today, length of contact: 25 minutes Patient Chief Complaint: "all right" Problems Identified/Issues Discussed: I reviewed recent notes and met with patient at bedside. He still appears unkempt and has periods of confusion on the unit. He is superficially aware that he is hospitalized however he is unaware of current month, year or circumstances. Affect appears quite preoccupied and distracted. Remains oddly related with blocking noted again today. I agree with staff members in that patient does appear to space out at times. Focus and comprehension remain poor. Staff indicates that patient has been more obsessed with toilet paper, towels and socks. Patient does request these items multiple times during my visit and still does not appear to be interested in having a productive conversation about his current symptoms and functioning. Tells me his mood is "all right" today and consistently reports that he slept well again last night. Upon repeated questioning patient finally denies having any pain or discomfort. He denied having hallucinations and though notably preoccupied, he is not responding to internal stimuli. Insight and judgment are poor and patient remains unpredictable Diagnostic Results: schizoaffective disorder, bipolar type dementia? Medication Change: Yes (Zyprexa increased to 10 mg AM and 12.5 mg HS for disorganization) Medical Record Reviewed: Yes (notes, labs, vitals, reports) Mental Status Examination - Cognitive Function Orientation: Person (he), Place, Situation Memory: Impaired (chronic mental illness and possible dementia) Attention: Poor (some improvement) Concentration: Poor (some improvement) Association: Loose Fund of Knowledge: WNL - Mood Mood: Other ("all right") - Affect Affect: Constricted, Flat, Other (at times inappropriate, oddly related) - Speech Speech: Soft - Formal Thought Process Formal Thought Process: Hallucinations (denied today), Delusions (some improvements), Paranoia (some improvements), Loosening of associations, Other ( obsessed with toilet paper, socks and towels) - Suicidal Ideation Suicidal Ideation: No - Homicidal Ideation Homicidal Ideation: No Goal/Treatment Plan - Goal/Treatment Plan Need for Continued Stay: Remain at risks for inpatient hospitalization, Severe depression anxiety, Discharge may exacerbated symptoms, Severe functional impairment Progress Toward Problem(s) and Goals/Treatment Plan: * c/w current tx and plan * Appreciate f/u by Dr. Richmond on 04/25/17~no new recommendations * Zyprexa increased to 10 mg AM and 12.5 mg HS for disorganization on 04/26/17 * No new weekend labs * Vitals reviewed and noted below: Selected Entries 04/27/17 04/27/17 07:39 09:03 Temperature 97.8 F Pulse Rate 92 H 92 H Respiratory 20 Rate Blood Pressure 134/88 134/88 Estimated Date of D/C: 04/28/17 (We'll monitor closely)
[2017-04-27] MEDS: Nystatin 100,000 Units/gm Topical Pow(15 gm) TOP SCH (12:27)
[2017-04-27] MEDS: OLANZapine 5 mg Disintegrating Tab PO SCH (22:30)
[2017-04-28] MEDS: OLANZapine 10 mg Disintegrating Tab PO SCH (08:44)
[2017-04-28] MEDS: Nystatin 100,000 Units/gm Topical Pow(15 gm) TOP SCH ×3 (08:47→17:19)
--- NOTE | 2017-04-28 13:03 | PN ---
DATE: 04/28/2017 The patient is 77 years old, seen and examined sitting in chair. Seems to be sleepy, but arousable. According to nurse, he is doing okay otherwise but he is obsessed with his bowel movement. Whenever he feels anxious, he runs to the bathroom and overuses the toilet tissue. Sometimes, he tries to st uff things in toilet bowl, but his bowel movements are not loose, watery or any blood in the stool. PHYSICAL EXAMINATION: VITAL SIGNS: He is afebrile, pulse 67, respirations 20, blood pressure 116/66. LUNGS: Bilateral fair airflow, no rhonchi or crackle. HEART: S1, S2 audible. ABDOMEN: Soft, nontender, no rebound, no guarding. NEUROLOGIC: The patient is sleepy but arousable, answers very simple questions. ASSESSMENT AND PLAN: 1. Questionable fecal urgency. I will get gastrointestinal evaluation to have proctoscopy just to r ule out any physical issue before we think this is obsessive compulsive disorder. 2. Mild dementia. 3. Anxiety disorder. 4. History of bipolar disorder. 5. Hip osteoarthritis. PLAN: We will continue current medical management. I will request Dr. Chilel and discuss with Dr. Rivas. She is in the process of adjusting the medication. We will follow up patient in the a.m. Sarah Richmond MD cc: [id number] TT: 04/28/2017 13:01:23 Confirmation # [id number] Dictation # [id number] sn
--- NOTE | 2017-04-28 15:46 | PCM.PYCHPN ---
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 minimal alarm investigator because patient has dementia plus chronic mental illness Medical Problems: hypertension, dyslipidemia, osteoarthritis, chronic hip pain, patient also limping but ambulates Diagnostic Results: Lab Results 04/15/17 07:35: Free T4 0.81, TSH 3rd Generation 2.38 04/15/17 07:35: Fasting Glucose 112 H, Triglycerides 87, Cholesterol 188, LDL Cholesterol Direct 116, HDL Cholesterol 54 04/15/17 07:35: RPR Nonreactive Vital Signs Temp Pulse Pulse Resp BP 04/17/17 08:35 109 H 136/73 04/17/17 07:30 99.3 F 109 H 23 136/73 04/16/17 14:00 103 H 136/80 04/15/17 16:57 76 126/72 04/15/17 08:43 82 116/72 04/15/17 07:27 98.7 F 82 20 116/72 04/14/17 21:41 81 113/72 04/14/17 15:25 98 H 20 Temp Pulse Resp BP Pulse Ox 97.9 F 76 20 102/62 04/20/17 07:53 04/20/17 08:59 04/20/17 07:53 04/20/17 08:59 Laboratory Results - last 72 hr 04/21/17 07:00 Valproic Acid 84 Temp Pulse Resp BP Pulse Ox 98.6 F 77 20 138/89 04/22/17 07:49 04/22/17 07:49 04/22/17 07:49 04/22/17 07:49 Temp Pulse Resp BP Pulse Ox 97.4 F L 109 H 20 121/74 04/24/17 07:49 04/24/17 09:31 04/24/17 07:49 04/24/17 09:31 Temp Pulse Resp BP Pulse Ox 98.1 F 67 20 116/66 04/28/17 08:06 04/28/17 08:45 04/28/17 08:06 04/28/17 08:45 DSM 5 Symptoms Update: pt has strong and debilitating h/o mental illness, multiple psych admissions, h/ o suicidal attempts, as per family pt has h/o dementaia and alcohol use disorder , pt was not followed up by psychiatrist in the community, med management by , pt was stable on meds for years, but pt was brought in to the ED s/ p AMS, agitation, not sleeping, psychotic, OCD, pt was smearing feces, was aggressive towards family, pt was not able to function, was in danger to self or others. patient was seen at the dinning area, there is no option to have meaningful conversation at present moment, but pt was more verbal today, pt asked "are you going to wash me today?", pt said that "I feel great", "I remember you", patient was fixated on toilet paper and socks, keep clotting the toilet with towels and toilet papers, as per staff could be argumentative if his needs were not met immediately, but no agitation or aggression. as per staff patient slept through the night, enjoys movies, snack, today was observed trying to walk naked in the unit, was redirected.. No agitation, no aggression. pt is off 1:1. pt is in the process of adjustment of his meds, tolerated well, no side effects observed or reported, AIMS 0, no EPS. DSM 5 Diagnosis: schizoaffective disorder, bipolar type dementia? (pt knows the name of the hospital, knows president) Medication Change: Yes (evening dose of Zyprexa was increased to 50 mg at the nighttime) Medical Record Reviewed: Yes (notes, labs, vitals, reports) Consults ordered or reviewed: medical consultation appreciated Mental Status Examination - Cognitive Function Orientation: Person (he), Place, Situation Memory: Impaired (chronic mental illness and possible dementia) Attention: Poor (some improvement) Concentration: Poor (some improvement) Association: Loose Fund of Knowledge: WNL - Mood Mood: Other ("all right") - Affect Affect: Constricted, Flat, Other (at times inappropriate, oddly related) - Speech Speech: Soft - Formal Thought Process Formal Thought Process: Hallucinations (denied today), Delusions (some improvements), Paranoia (some improvements), Loosening of associations, Other ( obsessed with toilet paper, socks and towels) - Suicidal Ideation Suicidal Ideation: No - Homicidal Ideation Homicidal Ideation: No Goal/Treatment Plan - Goal/Treatment Plan Need for Continued Stay: Remain at risks for inpatient hospitalization, Severe depression anxiety, Discharge may exacerbated symptoms, Severe functional impairment Progress Toward Problem(s) and Goals/Treatment Plan: milieu/structure/supportive therapy Lamictal was weaned off depakote 500mg at the morning time and 750 at the nighttime for mood stabilization depakote level is 84 04/21/2017 Depakote level for tomorrow 04/29/2017 zyprexa 10mgat the morning time 15 mgat the nighttime for psychotic symptoms Effexor Effexor was weaned off celexa weaned off prozac 40mg for MDD and OCD seroqeul was d/c (polypharmacy) other meds resumed medical f/u SW evaluation family involvement 1:1 was discontinued 04/21/17 [facility] meeting on Thursday or Estimated Date of D/C: 05/01/17 (We'll monitor closely)
[2017-04-28] MEDS: OLANZapine 5 mg Disintegrating Tab PO SCH (21:17)
[2017-04-29] MEDS: OLANZapine 10 mg Disintegrating Tab PO SCH (08:56)
[2017-04-29] MEDS: Nystatin 100,000 Units/gm Topical Pow(15 gm) TOP SCH ×2 (08:57→17:40)
--- NOTE | 2017-04-29 14:42 | PCM.PYCHPN ---
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 because patient has dementia plus chronic mental illness Medical Problems: hypertension, dyslipidemia, osteoarthritis, chronic hip pain, patient also limping but ambulates Diagnostic Results: Lab Results 04/15/17 07:35: Free T4 0.81, TSH 3rd Generation 2.38 04/15/17 07:35: Fasting Glucose 112 H, Triglycerides 87, Cholesterol 188, LDL Cholesterol Direct 116, HDL Cholesterol 54 04/15/17 07:35: RPR Nonreactive Vital Signs Temp Pulse Pulse Resp BP 04/17/17 08:35 109 H 136/73 04/17/17 07:30 99.3 F 109 H 23 136/73 04/16/17 14:00 103 H 136/80 04/15/17 16:57 76 126/72 04/15/17 08:43 82 116/72 04/15/17 07:27 98.7 F 82 20 116/72 04/14/17 21:41 81 113/72 04/14/17 15:25 98 H 20 Temp Pulse Resp BP Pulse Ox 97.9 F 76 20 102/62 04/20/17 07:53 04/20/17 08:59 04/20/17 07:53 04/20/17 08:59 Laboratory Results - last 72 hr 04/21/17 07:00 Valproic Acid 84 Temp Pulse Resp BP Pulse Ox 98.6 F 77 20 138/89 04/22/17 07:49 04/22/17 07:49 04/22/17 07:49 04/22/17 07:49 Temp Pulse Resp BP Pulse Ox 97.4 F L 109 H 20 121/74 04/24/17 07:49 04/24/17 09:31 04/24/17 07:49 04/24/17 09:31 Temp Pulse Resp BP Pulse Ox 98.1 F 67 20 116/66 04/28/17 08:06 04/28/17 08:45 04/28/17 08:06 04/28/17 08:45 Temp Pulse Resp BP Pulse Ox 98.3 F 75 20 140/80 04/29/17 07:58 04/29/17 08:55 04/29/17 07:58 04/29/17 08:55 DSM 5 Symptoms Update: pt has strong and debilitating h/o mental illness, multiple psych admissions, h/ o suicidal attempts, as per family pt has h/o dementaia and alcohol use disorder , pt was not followed up by psychiatrist in the community, med management by , pt was stable on meds for years, but pt was brought in to the ED s/ p AMS, agitation, not sleeping, psychotic, OCD, pt was smearing feces, was aggressive towards family, pt was not able to function, was in danger to self or others. patient was seen at the dinning area, pt was observed eating with good appetite , did not need assistance. Pt is more manageable in the unit, more appropriate, at times pt asking for the toilet paper but when redirected no signs of agitation or disrespectful behavior. pt is echolalic when this va underwriter asked if pt hears any voices, pt said "hear voices, hear voices". pt said that "I feel great", "I remember you". as per staff patient slept through the night, enjoys movies, snacks pt is in the process of adjustment of his meds, tolerated well, no side effects observed or reported, AIMS 0, no EPS. family meeting scheduled for tomorrow. DSM 5 Diagnosis: schizoaffective disorder, bipolar type dementia? (pt knows the name of the hospital, knows president) Medication Change: No (increased yesterday) Medical Record Reviewed: Yes (notes, labs, vitals, reports) Consults ordered or reviewed: medical consultation appreciated Mental Status Examination - Cognitive Function Orientation: Person (he), Place, Situation Memory: Impaired (chronic mental illness and possible dementia) Attention: Poor (some improvement) Concentration: Poor (some improvement) Association: Loose Fund of Knowledge: WNL - Mood Mood: Other ("I feel great") - Affect Affect: Constricted, Flat, Other (at times inappropriate, oddly related) - Speech Speech: Soft - Formal Thought Process Formal Thought Process: Hallucinations (denied today), Delusions (some improvements), Loosening of associations, Other (less obsessed with toilet papers, towels) - Suicidal Ideation Suicidal Ideation: No - Homicidal Ideation Homicidal Ideation: No Goal/Treatment Plan - Goal/Treatment Plan Need for Continued Stay: Remain at risks for inpatient hospitalization, Severe depression anxiety, Discharge may exacerbated symptoms, Severe functional impairment Progress Toward Problem(s) and Goals/Treatment Plan: milieu/structure/supportive therapy depakote 500mg at the morning time and 750 at the nighttime for mood stabilization depakote level is 84 04/21/2017 Depakote level is 68 04/29/2017 zyprexa 10mgat the morning time 15 mgat the nighttime for psychotic symptoms Effexor Effexor was weaned off celexa weaned off prozac 40mg for MDD and OCD seroqeul was d/c (polypharmacy) other meds resumed medical f/u SW evaluation family involvement 1:1 was discontinued 04/21/17 family meeting on Estimated Date of D/C: 05/01/17 (We'll monitor closely)
--- NOTE | 2017-04-29 18:31 | PN ---
DATE: 04/29/2017 SUBJECTIVE: The patient is 77 years old, seen and examined sitting in chair. Seemed to be sleepy, b ut arousable. He has dementia. Unable to carry on conversation. Answered simple questions. Eating and tolerating. PHYSICAL EXAMINATION: VITAL SIGNS: He is afebrile, pulse 75, respirations 20, blood pressure 140/80. LUNGS: Bilateral fair airflow, no rhonchi or crackle. HEART: S1, S2 audible. ABDOMEN: Soft, nontender, no rebound, no guarding. NEUROLOGIC: The patient is awake and alert, but confused and disoriented. ASSESSMENT AND PLAN: 1. Schizoaffective disorder. 2. Dementia. 3. Hypertension. 4. Hip osteoarthritis. 5. Obsessive compulsive disorder. PLAN: Since patient has been having fecal urgency, I would rule out any bodily causes, if there is a ny element of proctitis or rectal polyp that is causing him to go. If his rectal exam and evaluation is unremarkable, we are going to ____ treat his OCD. Sarah Richmond MD cc: [id number] TT: 04/29/2017 18:30:57 Confirmation # [id number] Dictation # [id number] sn
[2017-04-29] MEDS: OLANZapine 5 mg Disintegrating Tab PO SCH (21:39)
--- NOTE | 2017-04-29 22:25 | CON ---
DATE: 04/29/2017 SUBJECTIVE: This patient was seen and evaluated earlier. REASON FOR CONSULTATION: Some rectal discomfort and fecal urgency. I did review with the nursing staff and with the surgical instrument technician. I reviewed with the patient and the patient denied any rectal problem. He states his bowels are about 3 times a day with good bowel movements. No complaints. No complaints of any abdominal pain. This is totally against the problem which was described in the past. The patient was told that the importance of getting evaluated if it is a true complaint. The patient, at the moment, denies and he does not want any testing to be done. PAST MEDICAL HISTORY: Significant for bipolar disorder, dyslipidemia, osteoarthritis, chronic left hip pain and hypertension. ALLERGIES: Denies any allergies. SOCIAL HISTORY: He was ex-smoker and alcohol. REVIEW OF SYSTEMS: Positive as above. Other systems reviewed. The patient clearly denies any GI complaints. PHYSICAL EXAMINATION: GENERAL: The patient is lying on the bed, not in acute distress. VITAL SIGNS: Temperature is 98.3, pulse is 75, blood pressure 140/80, respirations 20. HEENT: Atraumatic and anicteric. NECK: Supple. HEART: S1, S2 heard. LUNGS: Bilateral air entry present. ABDOMEN: Soft. There is no mass palpable. No tenderness. EXTREMITIES: No edema, no cyanosis. LABORATORY DATA: Hemoglobin was 12.1 done on 04/12, hematocrit 36.4, WBC 6.5 and platelets 205. Chemistries are essentially unremarkable. IMPRESSION: This 77-year-old patient was admitted with severe depression. The patient earlier complained of some rectal discomfort and urgency. The patient presently denies all of these symptoms and states he is fine. No complaints. He does not want any testing. PLAN: At the moment, we will sign off. If the patient changes his mind and is agreeable, then we will consider further workup; however, it is also reasonable to consider a CT of the abdomen and pelvis with p.o. contrast, to further evaluate. The patient refused to have any testing done. Will discuss with Dr. Richmond and Dr. Rivas. Thank you very much for allowing us to participate in the care of the patient. Salbador Chilel MD cc: [id number] TT: 04/29/2017 22:24:53 Confirmation # [id number] Dictation # [id number] mn ZACHARY
[2017-04-30] MEDS: OLANZapine 10 mg Disintegrating Tab PO SCH (08:48)
[2017-04-30] MEDS: Nystatin 100,000 Units/gm Topical Pow(15 gm) TOP SCH ×2 (09:31→16:01)
--- NOTE | 2017-04-30 13:18 | PN ---
DATE: 04/30/2017 SUBJECTIVE: The patient is a 77-year-old seen and examined, sitting in chair, eating and tolerating. According to the nurse, his obsession compulsion is much better. He is eating well. He is able to communicate, answers simple questions. PHYSICAL EXAMINATION: VITAL SIGNS: He is afebrile, pulse 60, respirations 20, blood pressure 119/70. LUNGS: Bilateral fair airflow, no rhonchi or crackle. HEART: S1, S2 audible. ABDOMEN: Soft, nontender, no rebound, no guarding. NEUROLOGIC: The patient is awake and alert, answers simple questions. ASSESSMENT: 1. Dementia. 2. Obsessive compulsive disorder. 3. History of schizoaffective disorder. 4. Left hip osteoarthritis. PLAN: Discussed with Dr. Rivas. She is holding a family meeting. In her view, he seems to be quite s table for discharge. Medically he is already stable. His psych medications have been adjusted well and after hearing out the family concerns, will make discharge plan. Sarah Richmond MD cc: [id number] TT: 04/30/2017 13:18:20 Confirmation # [id number] Dictation # [id number] delores
--- NOTE | 2017-04-30 15:37 | PCM.PYCHPN ---
Psychiatric Progress Note - Psychiatric Progress Note Patient seen today, length of contact: 30 minute Patient Chief Complaint: "How do I look, do I look good to you?" Problems Identified/Issues Discussed: this typewriter mechanic attempted to discuss Suicide/ homicide prevention, past psychiatric h/o, current psychiatric symptoms, medical problems, risk/benefits and alternatives of medications, medications compliance, coping strategies, substance abuse h/o, relapse prevention, importance of follow up with psychiatrist and therapist, discharge plan. 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 because patient has dementia plus chronic mental illness Medical Problems: hypertension, dyslipidemia, osteoarthritis, chronic hip pain, patient also limping but ambulates Diagnostic Results: Lab Results 04/15/17 07:35: Free T4 0.81, TSH 3rd Generation 2.38 04/15/17 07:35: Fasting Glucose 112 H, Triglycerides 87, Cholesterol 188, LDL Cholesterol Direct 116, HDL Cholesterol 54 04/15/17 07:35: RPR Nonreactive Vital Signs Temp Pulse Pulse Resp BP 04/17/17 08:35 109 H 136/73 04/17/17 07:30 99.3 F 109 H 23 136/73 04/16/17 14:00 103 H 136/80 04/15/17 16:57 76 126/72 04/15/17 08:43 82 116/72 04/15/17 07:27 98.7 F 82 20 116/72 04/14/17 21:41 81 113/72 04/14/17 15:25 98 H 20 Temp Pulse Resp BP Pulse Ox 97.9 F 76 20 102/62 04/20/17 07:53 04/20/17 08:59 04/20/17 07:53 04/20/17 08:59 Laboratory Results - last 72 hr 04/21/17 07:00 Valproic Acid 84 Temp Pulse Resp BP Pulse Ox 98.6 F 77 20 138/89 04/22/17 07:49 04/22/17 07:49 04/22/17 07:49 04/22/17 07:49 Temp Pulse Resp BP Pulse Ox 97.4 F L 109 H 20 121/74 04/24/17 07:49 04/24/17 09:31 04/24/17 07:49 04/24/17 09:31 Temp Pulse Resp BP Pulse Ox 98.1 F 67 20 116/66 04/28/17 08:06 04/28/17 08:45 04/28/17 08:06 04/28/17 08:45 Temp Pulse Resp BP Pulse Ox 98.3 F 75 20 140/80 04/29/17 07:58 04/29/17 08:55 04/29/17 07:58 04/29/17 08:55 Temp Pulse Resp BP Pulse Ox 97.3 F L 68 20 119/70 04/30/17 07:41 04/30/17 08:45 04/30/17 07:41 04/30/17 08:45 DSM 5 Symptoms Update: pt has strong and debilitating h/o mental illness, multiple psych admissions, h/ o suicidal attempts, as per family pt has h/o dementaia and alcohol use disorder , pt was not followed up by psychiatrist in the community, med management by , pt was stable on meds for years, but pt was brought in to the ED s/ p AMS, agitation, not sleeping, psychotic, OCD, pt was smearing feces, was aggressive towards family, pt was not able to function, was in danger to self or others. patient was seen at the dinning area, pt was observed eating with good appetite , did not need assistance. Pt is more manageable in the unit, more appropriate, at times pt asking for the toilet paper but when redirected no signs of agitation or disrespectful behavior, as per staff pt is not obsessed with the toilet paper and did not clot the bathroom. Pt asked "do I look nice?" during the interview. family meeting took place today with pt's and daughter. pt's family seems to have no understanding of mental illness and dementia and had unrealistic plans, pt's family wants pt to be: "1. not obsessed with the toilet paper 2.not talking about toilet paper 3.not talking about bowl movement 4.not being undressed 5.be able to stay alone for four hours 6.you need to assure us that he will be not agitated and aggressive". family was educated about the dx of schizophrenia and dementia and prognosis, pt does not have POA and family does not know if they would need to initiate NH placement. All questions were answered, family seems to be unsatisfied with the pt's progress, daughter was keep bringing the way pt presented prior to come to the hospital. pt's family feels that pt has "space for improvement, he seems to be not ready". SW educated pt's and daughter about Medicaid application process, D/c planning, DTP, NH placement. as per staff patient slept through the night, enjoys movies, snacks pt is in the process of adjustment of his meds, tolerated well, no side effects observed or reported, AIMS 0, no EPS. DSM 5 Diagnosis: schizoaffective disorder, bipolar type dementia? (pt knows the name of the hospital, knows president) Medication Change: No Medical Record Reviewed: Yes (notes, labs, vitals, reports) Consults ordered or reviewed: medical consultation appreciated Mental Status Examination - Cognitive Function Orientation: Person (he), Place, Situation Memory: Impaired (chronic mental illness and possible dementia) Attention: Poor (some improvement) Concentration: Poor (some improvement) Association: Loose Fund of Knowledge: WNL - Mood Mood: Other ("I feel great") - Affect Affect: Constricted, Flat, Other (at times inappropriate, oddly related) - Speech Speech: Soft - Formal Thought Process Formal Thought Process: Hallucinations (denied today), Delusions (some improvements), Loosening of associations, Other (less obsessed with toilet papers, towels) - Suicidal Ideation Suicidal Ideation: No - Homicidal Ideation Homicidal Ideation: No Goal/Treatment Plan - Goal/Treatment Plan Need for Continued Stay: Remain at risks for inpatient hospitalization, Severe depression anxiety, Discharge may exacerbated symptoms, Severe functional impairment Progress Toward Problem(s) and Goals/Treatment Plan: milieu/structure/supportive therapy depakote 500mg at the morning time and 750 at the nighttime for mood stabilization depakote level is 84 04/21/2017 Depakote level is 68 04/29/2017 zyprexa 10mgat the morning time 15 mg at the nighttime for psychotic symptoms Effexor Effexor was weaned off celexa weaned off prozac 40mg for MDD and OCD seroqeul was d/c (polypharmacy) other meds resumed medical f/u SW evaluation family involvement 1:1 was discontinued 04/21/17 family meeting on Estimated Date of D/C: 05/04/17 (We'll monitor closely)
[2017-04-30] MEDS: OLANZapine 5 mg Disintegrating Tab PO SCH (21:46)
[2017-05-01] MEDS: OLANZapine 10 mg Disintegrating Tab PO SCH (09:37)
[2017-05-01] MEDS: Nystatin 100,000 Units/gm Topical Pow(15 gm) TOP SCH ×2 (10:02→16:02)
--- NOTE | 2017-05-01 13:43 | PN ---
DATE: 05/01/2017 SUBJECTIVE: The patient is a 77-year-old seen and examined, sitting in chair, seems to be comfortabl e, not as agitated, has less compulsive urges. As per nurse, eating and tolerating. PHYSICAL EXAMINATION: VITAL SIGNS: He is afebrile, pulse 70, respirations 20, and blood pressure 140/80. LUNGS: Bilateral fair airflow, no rhonchi or crackle. HEART: S1, S2 audible. ABDOMEN: Soft, nontender, no rebound, no guarding. NEUROLOGIC: He is awake and alert, able to answer simple questions, but unable to carry on conversat ions. He does wish to go home. ASSESSMENT: 1. Obsessive-compulsive disorder with mood disorder. 2. Bipolar disorder. 3. History of hypertension. 4. Generalized osteoarthritis. PLAN: I had a discussion with Dr. Rivas who had a family meeting yesterday and it was mutually agreed that he will be discharged on Thursday. Since his obsessive-compulsive issue seems to be improved, he is calmer than before. He is less agitated, so he will be discharged home on the current psych medi cation and medical treatment. Sarah Richmond MD cc: [phone] TT: 05/01/2017 13:43:15 Confirmation # [id number] Dictation # [id number] tn
--- NOTE | 2017-05-01 14:03 | PCM.PYCHPN ---
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 patient has dementia plus chronic mental illness Medical Problems: hypertension, dyslipidemia, osteoarthritis, chronic hip pain, patient also limping but ambulates Diagnostic Results: Lab Results 04/15/17 07:35: Free T4 0.81, TSH 3rd Generation 2.38 04/15/17 07:35: Fasting Glucose 112 H, Triglycerides 87, Cholesterol 188, LDL Cholesterol Direct 116, HDL Cholesterol 54 04/15/17 07:35: RPR Nonreactive Vital Signs Temp Pulse Pulse Resp BP 04/17/17 08:35 109 H 136/73 04/17/17 07:30 99.3 F 109 H 23 136/73 04/16/17 14:00 103 H 136/80 04/15/17 16:57 76 126/72 04/15/17 08:43 82 116/72 04/15/17 07:27 98.7 F 82 20 116/72 04/14/17 21:41 81 113/72 04/14/17 15:25 98 H 20 Temp Pulse Resp BP Pulse Ox 97.9 F 76 20 102/62 04/20/17 07:53 04/20/17 08:59 04/20/17 07:53 04/20/17 08:59 Laboratory Results - last 72 hr 04/21/17 07:00 Valproic Acid 84 Temp Pulse Resp BP Pulse Ox 98.6 F 77 20 138/89 04/22/17 07:49 04/22/17 07:49 04/22/17 07:49 04/22/17 07:49 Temp Pulse Resp BP Pulse Ox 97.4 F L 109 H 20 121/74 04/24/17 07:49 04/24/17 09:31 04/24/17 07:49 04/24/17 09:31 Temp Pulse Resp BP Pulse Ox 98.1 F 67 20 116/66 04/28/17 08:06 04/28/17 08:45 04/28/17 08:06 04/28/17 08:45 Temp Pulse Resp BP Pulse Ox 98.3 F 75 20 140/80 04/29/17 07:58 04/29/17 08:55 04/29/17 07:58 04/29/17 08:55 Temp Pulse Resp BP Pulse Ox 97.3 F L 68 20 119/70 04/30/17 07:41 04/30/17 08:45 04/30/17 07:41 04/30/17 08:45 Temp Pulse Resp BP Pulse Ox 98.4 F 70 20 140/80 05/01/17 09:11 05/01/17 09:36 05/01/17 09:11 05/01/17 09:36 Laboratory Results - last 72 hr 04/29/17 07:15 Valproic Acid 68 DSM 5 Symptoms Update: pt has strong and debilitating h/o mental illness, multiple psych admissions, h/ o suicidal attempts, as per family pt has h/o dementaia and alcohol use disorder , pt was not followed up by psychiatrist in the community, med management by , pt was stable on meds for years, but pt was brought in to the ED s/ p AMS, agitation, not sleeping, psychotic, OCD, pt was smearing feces, was aggressive towards family, pt was not able to function, was in danger to self or others. patient was seen at the dinning area, pt was observed eating with good appetite , did not need assistance. Pt is more manageable in the unit, more appropriate, at times pt asking for the toilet paper but when redirected no signs of agitation or disrespectful behavior, as per staff pt is not obsessed with the toilet paper and did not clot the bathroom. Pt asked today "when I am going home ?", when pt got to know that d/c plan is on Thursday, pt seems to be very happy and said "could I kiss you?" and smiled. (obviously this automatic typewriter inspector would not let pt to kiss her). family meeting took place yesterday 04/30/17 with pt's and daughter. see notes for more detailed info. as per staff patient slept through the night, enjoys movies, snacks, no obsession with toilet paper, pt is more directable pt is in the process of adjustment of his meds, tolerated well, no side effects observed or reported, AIMS 0, no EPS. DSM 5 Diagnosis: schizoaffective disorder, bipolar type dementia? (pt knows the name of the hospital, knows president) Medication Change: No Medical Record Reviewed: Yes (notes, labs, vitals, reports) Consults ordered or reviewed: medical consultation appreciated Mental Status Examination - Cognitive Function Orientation: Person (he), Place, Situation Memory: Impaired (chronic mental illness and possible dementia) Attention: Poor (some improvement) Concentration: Poor (some improvement) Association: Loose Fund of Knowledge: WNL - Mood Mood: Other ("I feel great") - Affect Affect: Constricted, Flat, Other (at times inappropriate, oddly related) - Speech Speech: Soft - Formal Thought Process Formal Thought Process: Hallucinations (denied today), Delusions (some improvements), Loosening of associations - Suicidal Ideation Suicidal Ideation: No - Homicidal Ideation Homicidal Ideation: No Goal/Treatment Plan - Goal/Treatment Plan Need for Continued Stay: Remain at risks for inpatient hospitalization, Severe depression anxiety, Discharge may exacerbated symptoms, Severe functional impairment Progress Toward Problem(s) and Goals/Treatment Plan: milieu/structure/supportive therapy depakote 500mg at the morning time and 750 at the nighttime for mood stabilization depakote level is 84 04/21/2017 Depakote level is 68 04/29/2017 zyprexa 10mgat the morning time 15 mg at the nighttime for psychotic symptoms Effexor Effexor was weaned off celexa weaned off prozac 40mg for MDD and OCD seroqeul was d/c (polypharmacy) other meds resumed medical f/u SW evaluation family involvement 1:1 was discontinued 04/21/17 d/c scheduled on Thursday Estimated Date of D/C: 05/04/17 (We'll monitor closely)
[2017-05-01] MEDS: OLANZapine 5 mg Disintegrating Tab PO SCH (21:24)
[2017-05-02] MEDS: Nystatin 100,000 Units/gm Topical Pow(15 gm) TOP SCH ×2 (07:00→17:26)
[2017-05-02] MEDS: OLANZapine 10 mg Disintegrating Tab PO SCH (08:32)
--- NOTE | 2017-05-02 09:30 | PCM.PYCHPN ---
Psychiatric Progress Note - Psychiatric Progress Note Patient seen today, length of contact: 25 minute Patient Chief Complaint: "all right" Problems Identified/Issues Discussed: I reviewed recent notes and met with patient at bedside. He still appears unkempt and malodorous. He still has periods of confusion on the unit. Patient is superficially aware that he is hospitalized however he is unaware of correct month or circumstances. Affect is blunt and preoccupied but a little more spontaneous than last weekend. Remains oddly related with some blocking noted again today. Patient reports that his mood is "all right". Also indicates that he has been sleeping well. Denies having any hallucinations. Staff notes indicate that patient is less preoccupied with toilet paper and towels and can be redirected more easily. Self control appears to be improving. His roommate is annoyed by him and yells at him but patient does not respond or engage with roommate with any aggression. Patient's insight and judgment are poor however impulse control is showing some improvement and behavior is more predictable. Diagnostic Results: schizoaffective disorder, bipolar type dementia? Medication Change: No Medical Record Reviewed: Yes (notes, labs, vitals, reports) Mental Status Examination - Cognitive Function Orientation: Person (he), Place, Situation Memory: Impaired (chronic mental illness and possible dementia) Attention: Poor (some improvement) Concentration: Poor (some improvement) Association: Loose Fund of Knowledge: WNL - Mood Mood: Other ("all right") - Affect Affect: Constricted, Flat, Other (at times inappropriate, oddly related) - Speech Speech: Soft - Formal Thought Process Formal Thought Process: Hallucinations (denied today), Delusions (some improvements), Loosening of associations, Other (thought blocking noted) - Suicidal Ideation Suicidal Ideation: No - Homicidal Ideation Homicidal Ideation: No Goal/Treatment Plan - Goal/Treatment Plan Need for Continued Stay: Remain at risks for inpatient hospitalization, Severe depression anxiety, Discharge may exacerbated symptoms, Severe functional impairment Progress Toward Problem(s) and Goals/Treatment Plan: * c/w current tx and plan * No new weekend labs * Vitals reviewed and noted below: Selected Entries 05/01/17 05/01/17 05/01/17 09:11 09:36 15:39 Temperature 98.4 F Pulse Rate 70 70 74 Respiratory 20 Rate Blood Pressure 140/80 140/80 108/71 05/01/17 21:25 Temperature Pulse Rate 74 Respiratory Rate Blood Pressure 108/71 Estimated Date of D/C: 05/04/17 (We'll monitor closely)
--- NOTE | 2017-05-02 12:54 | PN ---
DATE: 05/02/2017 SUBJECTIVE: The patient is a 77-year-old, seen and examined, seems to be calm, less agitated, eating and tolerating. PHYSICAL EXAMINATION: VITAL SIGNS: He is afebrile, pulse 67, respirations 17, blood pressure 124/82. LUNGS: Bilateral fair airflow, no rhonchi or crackle. HEART: S1, S2 audible. No murmur. ABDOMEN: Soft, nontender, no rebound, no guarding. NEUROLOGIC: He is awake and alert, able to communicate, but unable to carry an intelligent conversat ion. He answers simple questions. ASSESSMENT: 1. Bipolar disorder. 2. Obsessive compulsive disorder. 3. Dementia. 4. Hypertension. 5. Hip osteoarthritis. PLAN: Discussed with Dr. Rivas. The patient's medication has been adjusted. Currently he is on Arice pt. He is on Depakote, continue that. He is on Zyprexa 10 mg daily and 15 at bedtime, will continue that. So, discharge plan is for Thursday. That was discussed with the family and they seem to be agr eeable. Sarah Richmond MD cc: [phone] TT: 05/02/2017 12:53:35 Confirmation # [id number] Dictation # [id number] delores
[2017-05-02] MEDS: OLANZapine 5 mg Disintegrating Tab PO SCH (21:34)
[2017-05-03 08:12] VITALS: RESP 20; TEMP 97.9
--- NOTE | 2017-05-03 09:02 | PCM.PYCHPN ---
Psychiatric Progress Note - Psychiatric Progress Note Patient seen today, length of contact: 25 minute Patient Chief Complaint: "very good" Problems Identified/Issues Discussed: I reviewed recent notes and met with patient in the dayroom. He appears unkempt but less malodorous today. He still has periods of confusion on the unit. Patient is superficially aware that he is hospitalized however he is unaware of correct month, year or circumstances. Affect is flat, blunt and preoccupied but a little more spontaneous than last weekend. Remains oddly related with blocking noted again today. Patient reports that his mood is "very good". Denies hallucinations. Staff notes indicate that patient is less preoccupied with toilet paper and towels and can be redirected more easily. Self control appears to be improving. His roommate is annoyed by him and yelled at him this past week (not this weekend) but patient has not responded or engaged with this roommate with aggression. Patient's insight and judgment are poor however impulse control is showing some improvement and behavior is more predictable. Diagnostic Results: schizoaffective disorder, bipolar type dementia? Medication Change: No Medical Record Reviewed: Yes (notes, labs, vitals, reports) Mental Status Examination - Cognitive Function Orientation: Person (he), Place, Situation Memory: Impaired (chronic mental illness and possible dementia) Attention: Poor (some improvement) Concentration: Poor (some improvement) Association: Loose Fund of Knowledge: WNL - Mood Mood: Other ("very good") - Affect Affect: Constricted, Flat, Other (at times inappropriate, oddly related) - Speech Speech: Soft - Formal Thought Process Formal Thought Process: Hallucinations (denied this weekend), Delusions (some improvements), Loosening of associations, Other (thought blocking noted) - Suicidal Ideation Suicidal Ideation: No - Homicidal Ideation Homicidal Ideation: No Goal/Treatment Plan - Goal/Treatment Plan Need for Continued Stay: Remain at risks for inpatient hospitalization, Severe depression anxiety, Discharge may exacerbated symptoms, Severe functional impairment Progress Toward Problem(s) and Goals/Treatment Plan: * c/w current tx and plan * Appreciate f/u by Dr. Richmond on 05/02/17~no new recommendations * No new weekend labs * Vitals reviewed and noted below: Selected Entries 05/03/17 08:11 Temperature 97.9 F Pulse Rate 59 L Respiratory 20 Rate Blood Pressure 131/89 Estimated Date of D/C: 05/04/17 (We'll monitor closely)
[2017-05-03] MEDS: OLANZapine 10 mg Disintegrating Tab PO SCH (09:30)
[2017-05-03] MEDS: Nystatin 100,000 Units/gm Topical Pow(15 gm) TOP SCH ×2 (09:34→17:04)
--- NOTE | 2017-05-03 11:55 | PN ---
DATE: 05/03/2017 SUBJECTIVE: This patient seen and examined, sitting in chair, seems to be comfortable, less agitated and anxious to go home. PHYSICAL EXAMINATION: VITAL SIGNS: He is afebrile, pulse 59, respirations 20, blood pressure 131/89. LUNGS: Bilateral fair airflow, no rhonchi or crackle. HEART: S1, S2 audible. ABDOMEN: Soft, nontender, no rebound, no guarding. NEUROLOGIC: The patient is awake and alert, able to communicate, answers simple questions. ASSESSMENT AND PLAN: 1. Bipolar disorder. 2. Mood disorder. 3. Obsessive compulsive disorder. 4. Dementia. 5. Hypertension. 6. Hyperlipidemia. 7. Hip osteoarthritis. PLAN: Medication has been adjusted. According to Dr. Rivas, he is psychologically stable to be disch arged on Thursday. We will reevaluate in a.m. and make discharge plan for morning. Sarah Richmond MD cc: [phone] TT: 05/03/2017 11:54:38 Confirmation # [id number] Dictation # [id number] mn
[2017-05-03] MEDS: OLANZapine 5 mg Disintegrating Tab PO SCH (22:00)
[2017-05-04 07:51] VITALS: BP 105/55; PULSE 63
[2017-05-04] MEDS: OLANZapine 10 mg Disintegrating Tab PO SCH (09:17)
[2017-05-04] MEDS: Nystatin 100,000 Units/gm Topical Pow(15 gm) TOP SCH (09:23)
--- NOTE | 2017-05-04 13:02 | PN ---
DATE: 05/04/2017 SUBJECTIVE: The patient is a 77-year-old, seen and examined ambulating with slight limp. Not as agg ressive. Awake and alert, eating and tolerating. PHYSICAL EXAMINATION: VITAL SIGNS: He is afebrile, pulse 63, respirations 20, blood pressure 105/55. LUNGS: Bilateral fair airflow. No rhonchi or crackle. HEART: S1, S2 audible. ABDOMEN: Soft, obese, nontender. No rebound, no guarding. NEUROLOGIC: The patient is awake and alert, ambulatory. ASSESSMENT AND PLAN: 1. Schizoaffective disorder. 2. Obsessive compulsive disorder. 3. Dementia. 4. Hypertension. 5. Hyperlipidemia. PLAN: To have a discussion with Dr. Rivas and patient's daughter Tanya Blanchard. She is davi ling to take him home. New medication has been started, including Depakote twice a day and 1 at bedt emilee. He will be maintained on atorvastatin, metoprolol and Norvasc. He will be on Prozac 40 mg carlos y, Sonata 5 mg at bedtime and he will be followed up as outpatient. Sarah Richmond MD cc: [phone] TT: 05/04/2017 13:02:45 Confirmation # [id number] Dictation # [id number] [place]
--- NOTE | 2017-05-04 16:08 | PCM.PYCHDC ---
Mental Status Examination - Mental Status Examination Orientation: Person, Place Memory: Impaired (patient has Alzheimer's dementia) Mood: Neutral Affect: Broad (at times patient is smiling inappropriately) Attention: WNL Concentration: WNL Language: Word Retrieval (t times patient has disorganized speech, chronic) Association: WNL Fund of Knowledge: Poor (patient has Alzheimer's dementia) Formal Thought Process: Loosening of associations, Perservation, Other (patient has Alzheimer's dementia as well as chronic mental illness, schizophrenia) Description of patient's judgement and insight: somewhat improved Psychotic Thoughts and Behaviors: patient still have thought process to be disorganized, much improvement, much better Suicidal Ideation: No Current Homicidal Ideation?: No Plan: atient adamantly denied thoughts of harming himself or others no agitated or aggressive behavior Discharge Summary - Discharge Note Reason for Hospitalization: pt was transferred from the medical floor for evaluation of psychotic/manic symptoms, meds adjustments. Psychiatric History (includes Medical, Family, Personal Hx): see HPI Laboratory Data: Lab Results 04/29/17 07:15: Valproic Acid 68 04/21/17 07:00: Valproic Acid 84 04/15/17 07:35: Free T4 0.81, TSH 3rd Generation 2.38 04/15/17 07:35: Fasting Glucose 112 H, Triglycerides 87, Cholesterol 188, LDL Cholesterol Direct 116, HDL Cholesterol 54 04/15/17 07:35: RPR Nonreactive Vital Signs Temp Pulse Pulse Resp BP 05/04/17 09:21 63 105/55 L 05/04/17 07:50 97.9 F 63 20 105/55 L 05/03/17 21:59 83 135/86 05/03/17 17:34 64 130/80 05/03/17 09:33 59 L 131/89 05/03/17 08:11 97.9 F 59 L 20 131/89 05/02/17 22:30 94/59 L 05/02/17 21:35 86 136/81 05/02/17 08:32 64 124/82 05/02/17 06:56 97.4 F L 67 17 94/60 L 05/01/17 21:25 74 108/71 05/01/17 15:39 74 108/71 05/01/17 09:36 70 140/80 05/01/17 09:11 98.4 F 70 20 140/80 04/30/17 16:37 81 136/92 H 04/30/17 08:45 68 119/70 04/30/17 07:41 97.3 F L 68 20 119/70 04/29/17 16:00 70 100/63 04/29/17 08:55 75 140/80 04/29/17 07:58 98.3 F 75 20 140/80 04/28/17 21:18 70 110/64 04/28/17 16:01 70 110/64 04/28/17 08:45 67 116/66 04/28/17 08:06 98.1 F 67 20 116/66 04/27/17 16:46 81 116/75 04/27/17 09:03 92 H 134/88 04/27/17 07:39 97.8 F 92 H 20 134/88 04/26/17 16:00 83 118/75 04/26/17 09:14 100 H 145/91 H 04/26/17 08:11 100 H 18 145/91 H 04/25/17 16:33 89 124/76 04/25/17 08:00 98.1 F 96 H 20 156/87 H 04/24/17 22:00 86 122/76 04/24/17 20:00 75 18 116/77 04/24/17 09:31 109 H 121/74 04/24/17 07:49 97.4 F L 72 20 102/56 L 04/23/17 21:59 60 89/58 L 04/23/17 16:05 86 110/56 L 04/23/17 07:53 97.7 F 73 20 144/72 04/22/17 16:00 83 146/82 04/22/17 07:49 98.6 F 77 20 138/89 04/21/17 22:15 82 144/82 04/21/17 16:18 80 147/85 04/21/17 09:54 98 F 18 L 120/76 04/21/17 08:49 136/88 04/21/17 06:57 98.1 F 83 18 120/76 04/20/17 21:45 84 123/82 04/20/17 16:34 84 123/82 04/20/17 08:59 76 102/62 04/20/17 07:53 97.9 F 73 20 96/62 L 04/19/17 16:00 98.6 F 86 18 120/81 04/18/17 22:12 69 108/52 L 04/18/17 09:45 76 146/86 04/18/17 09:08 98.4 F 76 20 146/86 04/18/17 08:00 76 146/86 04/17/17 22:45 88 132/65 04/17/17 16:45 101 H 133/86 04/17/17 08:35 109 H 136/73 04/17/17 07:30 99.3 F 109 H 23 136/73 04/16/17 14:00 103 H 136/80 04/15/17 16:57 76 126/72 04/15/17 08:43 82 116/72 04/15/17 07:27 98.7 F 82 20 116/72 04/14/17 21:41 81 113/72 04/14/17 15:25 98 H 20 Consultations:: List each consultation separately and include: 1. Reason for request. 2. Findings. 3. Follow-up Consultations: medical consultation appreciated please see medical notes for more detailed information This rewriter had multiple occasions of discussion this case with Dr. Ritter Summary of Hospital Course include:: 1. Description of specific treatment plan utilized for patients during their course of treatmen. 2. Summarize the time- course for resolution of acute symptoms and/or regressed behaviors. 3. Describe issues identified and worked on during hospitalization. 4. Describe medication utilized. 5. Describe medical problems identified and treated. 6. Reassessment of suicide risk Summary of Hospital Course: pt has strong and debilitating h/o mental illness, multiple psych admissions, h/ o suicidal attempts, as per family pt has h/o dementaia and alcohol use disorder , pt was not followed up by psychiatrist in the community, med management by , pt was stable on meds for years, but pt was brought in to the ED s/ p AMS, agitation, not sleeping, psychotic, OCD, pt was smearing feces, was aggressive towards family, pt was not able to function, was in danger to self or others. initially pt was seen on the medical side where he was admitted for evaluation AMS. 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 initially pt was presented to be disorganized in his thoughts and behavior, was throwing things, was not sleeping, was refusing to put clothes on. pt's meds were changed: Lamictal 100mg po daily- started to taper down now pt is on 75mg daily, with plan to wean it off zyprexa 10mg daily- was increased to 5mg tid and now 10mg bid Effexor XR 150 daily- started to wean off, now is on 37.5, with the plan to d/c celexa was initiated 10mg daily with the plan to increase it further seroqeul was d/c (polypharmacy) other meds resumed this rewriter had prolonged conversation with pt's daughter Cass [phone], pt was not sleeping, was throwing things towards family members, pt was not able to stay by himself even for a few minutes, pt also had OCD was "measuring and smearing his feces", pt had h/o suicidal attempts pt had similar symptoms right prior suicidal attempts. long h/o alcohol use disorder, but not anytime recent. Family expressed highest concern about pt's safety. as per daughter pt had h/o of "trying to cut his penis, or he was paranoid about it". pt was seen at tx team today, pt presented to be disorganized, hard to understand, but pt said "you are all good looking, how do I look? Good?", when this wrier asked how pt's mood pt started to dance. pt is currently on 1:1 for risk of falls and disorganized behavior. pt denies using drugs or smoking. in the ED CT of the head showed cerebral encephalomalacia, gliosis with left MA territory, prior ischemic stroke, Acute on chronic ischemia cannot be excluded. medical h/o: as per h/o dementia, medical team will f/u pt up. Social h/o: pt lives with daughter, . Lab Results 04/15/17 07:35: Free T4 0.81, TSH 3rd Generation 2.38 04/15/17 07:35: Fasting Glucose 112 H, Triglycerides 87, Cholesterol 188, LDL Cholesterol Direct 116, HDL Cholesterol 54 Vital Signs Temp Pulse Pulse Resp BP 04/15/17 08:43 82 116/72 04/15/17 07:27 98.7 F 82 20 116/72 05/16/17 21:41 81 113/72 04/14/17 15:25 98 H 20 over this hospitalization this rewriter adjusted multiple medications. Effexor was weaned off Celexa was tried, but patient was not improving on the unit, then it was discontinued Prozac was started, titrated to 40 mg daily for OCD, depression and anxiety Seroquel was weaned off Lamictal was weaned off Zyprexa was maximized to 10 mg at the morning time at 50 mg at the nighttime Ativan was implemented for anxiety and will stabilization Depakote was started patient was stabilized on 500 mg at the morning time and 750 mg at the nighttime for mood stabilization Patient tolerated medications well, no side effects observed or reported, aims 0 , no EPS. Over the course of this hospitalization patient improved significantly, socially more appropriate, has good appetite and sleep, OCD is much better, no agitation, no aggression. Family meeting took place last week on please see this rewriter notes for more detailed information, pt's family is willing to accept pt back Over the course of this hospitalization pt was attending groups, pt also had medication management, had therapeutic milieu. Overall pt improved significantly, impulses are under control, psychosis better , pt is more socially appropriate./ At the time of the discharge pt denied been depressed, denied thoughts of harming self or others, no such behavior observed or reported, pt will be f/u with 's office, information about follow up appointment, time and address provided to the pt, it is patient responsibility to follow up with outpatient clinic, PMD as well as specialists (see SW note for more detailed information). In case pt will need to obtain results of studies pending at discharge pt was provided with contact information of Psychiatric Inpatient unit [phone] as well as Medical Record Department [phone]. pt was provided with prescriptions for all of medications (please see medication reconciliation form), psychotropic medications 2 week supply and 1 refill, medical meds only 1 week's supply with the plan for the patient to be followed up by Dr. Diaz Pt was educated about safety plan in case of worsening of symptoms or in case of suicidal or homicidal ideation call 911 or go to the nearest ER, also was educated to take meds as prescribed and stay away from drugs, pt verbalized understanding. - Diagnosis (1) Dementia Current Visit: Yes Status: Chronic (2) Schizophrenia Current Visit: Yes Status: Chronic (3) Altered mental status Current Visit: No Status: Inactive - Final Diagnosis (DSM 5) Condition upon Discharge: GOOD Disposition: HOME/ ROUTINE Follow-up Treatment Plan: At the time of the discharge pt denied been depressed, denied thoughts of harming self or others, no such behavior observed or reported, pt will be f/u with 's office, information about follow up appointment, time and address provided to the pt, it is patient responsibility to follow up with outpatient clinic, PMD as well as specialists (see SW note for more detailed information). In case pt will need to obtain results of studies pending at discharge pt was provided with contact information of Psychiatric Inpatient unit [phone] as well as Medical Record Department [phone]. pt was provided with prescriptions for all of medications (please see medication reconciliation form), psychotropic medications 2 week supply and 1 refill, medical meds only 1 week's supply with the plan for the patient to be followed up by Dr. Diaz Pt was educated about safety plan in case of worsening of symptoms or in case of suicidal or homicidal ideation call 911 or go to the nearest ER, also was educated to take meds as prescribed and stay away from drugs, pt verbalized understanding. Prescriptions/Medication Reconciliation: amLODIPine [Norvasc] 5 mg PO DAILY #7 tab Atorvastatin [Lipitor] 10 mg PO DIN #7 tab Divalproex [Depakote ER] 250 mg PO HS #14 ter Divalproex [Depakote ER] 500 mg PO AMHS #30 ter Donepezil [Aricept] 10 mg PO HS #7 tab FLUoxetine [Prozac] 40 mg PO DAILY #14 cap LORazepam [Ativan] 0.5 mg PO TID #45 tab Metoprolol Tartrate [Lopressor] 25 mg PO HS #7 tab OLANZapine [Zyprexa Zydis] 10 mg PO DAILY #14 odt OLANZapine [Zyprexa Zydis] 15 mg PO HS #14 odt Zaleplon [Sonata] 5 mg PO HS PRN #14 cap PRN Reason: Insomnia - Smoking Cessation Smoking Cessation Medication prescribed: No Reason for not providing: patient does not smoke
== END 2017-05-04 18:21 | disposition home or self-care (01) | DRG 885 ==
LOC: PSYC 14:53
PROVIDERS: ADMIT Psychiatry & Neurology Psychiatry; ATTEND Psychiatry & Neurology Psychiatry
DX: F20.9 Schizophrenia, unspecified (principal); F03.90 Unspecified dementia, unspecified severity, without behavioral disturbance, psychotic disturbance, mood disturbance, and anxiety; G93.89 Other specified disorders of brain; R41.82 Altered mental status, unspecified; E78.5 Hyperlipidemia, unspecified; F22 Delusional disorders; F31.9 Bipolar disorder, unspecified; F41.9 Anxiety disorder, unspecified; F42.9 Obsessive-compulsive disorder, unspecified; G89.29 Other chronic pain; M15.9 Polyosteoarthritis, unspecified; H91.90 Unspecified hearing loss, unspecified ear; I10 Essential (primary) hypertension; M16.12 Unilateral primary osteoarthritis, left hip; Z79.899 Other long term (current) drug therapy; Z86.73 Personal history of transient ischemic attack (TIA), and cerebral infarction without residual deficits; Z87.891 Personal history of nicotine dependence; G47.00 Insomnia, unspecified; Z87.898 Personal history of other specified conditions; F29 Unspecified psychosis not due to a substance or known physiological condition; M51.36 Other intervertebral disc degeneration, lumbar region

== ENCOUNTER 2018-06-05 14:19 | Inpatient (IN) | payer MEDICARE ==
[2018-06-05 14:29] VITALS: BMI 35.5
[2018-06-05] MEDS ORDERED: cefTRIAXone 1 gm 1 GM/100 ML BAG IVPB STA (14:34)
--- NOTE | 2018-06-05 14:36 | ED PDOC ---
Arrival/HPI - General Time Seen by Provider: 06/05/18 14:20 Historian: Other (daughter) - History of Present Illness Narrative History of Present Illness (Text): 06/05/18 14:22 A 78 year old male, whose past medical history includes CVI with aphasia, dementia and hypertension, is brought into the emergency department by daughter for further evaluation of increasing confusion. Patient's daughter states that the patient has been more confused than usual over the last few days. She notes that he has a swollen, erythematous right lower extremity. The daughter states that the patient was seen by his PMD who prescribed him antibiotics. She states that the leg has started to improve. She notes that he was a heavy smoker and an alcoholic, but stopped smoking and drinking about 10 years ago. HPI/ ROS limited due to patient's underlying dementia. PMD: Dr. Richmond Past Medical History - Provider Review Nursing Documentation Reviewed: Yes - Infectious Disease Hx of Infectious Diseases: None - Cardiac Hx Cardiac Disorders: Yes Hx Angina: No Hx Hypertension: Yes - Pulmonary Hx Respiratory Disorders: No Hx Asthma: No Hx Bronchitis: No Hx Emphysema: No - Neurological Hx Neurological Disorder: Yes HX Cerebrovascular Accident: Yes Hx Dementia: Yes - HEENT Hx HEENT Disorder: No - Renal Hx Renal Disorder: No - Endocrine/Metabolic Hx Endocrine Disorders: No - Hematological/Oncological Hx Blood Disorders: No - Integumentary Hx Dermatological Disorder: No - Musculoskeletal/Rheumatological Hx Musculoskeletal Disorders: No Hx Falls: No - Gastrointestinal Hx Gastrointestinal Disorders: No - Genitourinary/Gynecological Hx Genitourinary Disorders: Yes Hx Incontinence: Yes Hx Prostate Problems: Yes - Psychiatric Hx Substance Use: No - Surgical History Other/Comment: Broken Nose - Anesthesia Hx Anesthesia: No - Suicidal Assessment Feels Threatened In Home Enviroment: No Family/Social History - Physician Review Nursing Documentation Reviewed: Yes Family/Social History: No Known Family HX Smoking Status: Never Smoked Hx Alcohol Use: Yes Hx Substance Use: No Allergies/Home Meds Allergies/Adverse Reactions: Allergies No Known Allergies Allergy (Verified 06/05/18 14:26) Home Medications: Home Meds Medication Instructions Recorded Confirmed Clotrimazole/Betameth Dip/Zinc 0 gm TP DAILY 06/05/18 06/05/18 [Dermacinrx Therazole Kalen] Furosemide [Lasix] 40 mg PO DAILY 06/05/18 06/05/18 metOLazone [Zaroxolyn] 2.5 mg PO DAILY 06/05/18 06/05/18 Review of Systems - Physician Review All systems were reviewed & negative as marked: Yes - Review of Systems Systems not reviewed;Unavailable: Dementia Physical Exam Vital Signs Temp Pulse Resp BP Pulse Ox 06/05/18 14:41 99.1 F 06/05/18 14:32 98.5 F 84 20 122/72 92 L - Systems Exam Head: Present: Atraumatic, Normocephalic Pupils: Present: PERRL Extroacular Muscles: Present: EOMI Conjunctiva: Present: Normal Mouth: Present: Moist Mucous Membranes Neck: Present: Normal Range of Motion Respiratory/Chest: Present: Decreased Breath Sounds Cardiovascular: Present: Regular Rate and Rhythm, Normal S1, S2. No: Murmurs Abdomen: No: Tenderness, Distention, Peritoneal Signs Back: Present: Normal Inspection Upper Extremity: Present: Normal Inspection. No: Cyanosis, Edema Lower Extremity: Present: Edema (Right lower extremity: 3+ edema), Erythema ( Right lower extremity erythema and warmth in lateral lower leg.) Neurological: Present: GCS=15, CN II-XII Intact, Speech Normal Skin: Present: Warm, Dry, Normal Color. No: Rashes Psychiatric: Present: Normal Insight, Normal Concentration. No: Oriented x 3 ( Oriented to person only. Not to place, time, or situation. ) Medical Decision Making ED Course and Treatment: 06/05/18 14:23 Impression: A 78 year old male is brought into the emergency department by daughter for increasing confusion over the last few days. Plan: -- Head CT -- Lower Extremity Vein Ultrasound -- EKG -- Chest X-ray -- Labs -- Blood/ Urine Culture -- Rocephin -- Urinalysis -- Reassess and disposition Progress Notes: 06/05/18 15:48 EKG shows normal sinus rhythm rate approximately 60 with nonspecific T-wave changes and no acute changes 06/05/18 16:14 CT of head reviewed by radiologist, shows: No acute intracranial abnormalities. No significant findings to account for the clinical presentation. No significant interval change compared to the prior examination(s). 06/05/18 16:17 Chest X-Ray reviewed by radiologist, shows: No active disease. No acute/ significant interval changes. 06/05/18 16:38 Patient has failed outpatient management and will be a full admission. requested dose of IV vancomycin. He has been taking Bactrim. - Lab Interpretations Lab Results: 06/05/18 14:30 06/05/18 14:30 Lab Results 06/05/18 15:00: Ammonia 18 06/05/18 14:45: Urine Color Dark yellow, Urine Appearance Clear, Urine pH 6.5, Ur Specific [place] 1.020, Urine Protein Trace H, Urine Glucose (UA) Negative, Urine Ketones Trace H, Urine Blood Small H, Urine Nitrate Negative, Urine Bilirubin Small H, Urine Urobilinogen >=8.0, Ur Leukocyte Esterase Negative, Urine RBC 2 - 5, Urine WBC 0 - 2, Ur Epithelial Cells 0 - 2, Urine Bacteria Trace, Hyaline Casts 0 - 2, Urine Other Utrans 06/05/18 14:30: pO2 54, VBG pH 7.41, VBG pCO2 60.0, VBG HCO3 38.0 H, VBG Total CO2 39.8 H, VBG O2 Sat (Calc) 88.6 H, VBG Base Excess 10.9 H, VBG Potassium 3.1 L, Sodium 141.0, Chloride 103.0, Glucose 117 H, Lactate 2.0, FiO2 21.0, Venous Blood Potassium 3.1 L 06/05/18 14:30: TSH 3rd Generation 4.26, Alcohol, Quantitative < 10 06/05/18 14:30: Sodium 144, Chloride 100, Potassium 3.1 L, Carbon Dioxide 33, Anion Gap 14, BUN 31 H, Creatinine 1.4, Est GFR ( Amer) 59, Est GFR (Non- Af Amer) 49, Random Glucose 117 H, Calcium 8.3 L, Phosphorus 2.9, Magnesium 2.3 H, Total Bilirubin 0.5, AST 24, ALT 19, Alkaline Phosphatase 60, Lactate Dehydrogenase 506, Total Creatine Kinase 92, Troponin I < 0.01 D, Total Protein 6.8, Albumin 3.5, Globulin 3.3, Albumin/Globulin Ratio 1.1 06/05/18 14:30: PT 20.0 H, INR 1.73 H, APTT 28.6 06/05/18 14:30: WBC 6.4, RBC 3.96, Hgb 12.6 L, Hct 38.5 L, MCV 97.2, MCH 31.8, MCHC 32.7, RDW 13.0, Plt Count 130, MPV 9.7, Gran % 45.3 L, Lymph % (Auto) 32.6 , [place] % (Auto) 17.9 H, Eos % (Auto) 3.7, Baso % (Auto) 0.5, Gran # 2.91, Lymph # (Auto) 2.1, [place] # (Auto) 1.2 H, Eos # (Auto) 0.2, Baso # (Auto) 0.03 I have reviewed the lab results: Yes - RAD Interpretation Radiology Orders: 06/05/18 14:31 DUPLEX LOWER EXTRM VEIN BILAT [US] Stat 06/05/18 14:32 HEAD W/O CONTRAST [CT] Stat CHEST ONE VIEW [RAD] Stat CT scan of the head as read by the radiologist shows no acute findings. X-ray chest 1 view as read by the radiologist shows right lower lobe atelectasis , otherwise no acute findings. Bilateral lower extremity venous Doppler negative for DVT. Foundation Assistant: Radiologist - EKG Interpretation Interpreted by ED Physician: Yes Type: 12 lead EKG - Medication Orders Current Medication Orders: Vancomycin HCl (Vancomycin 1gm) 1 gm in 250 mls @ 167 mls/hr IVPB STAT STA PRN Reason: Protocol Stop: 06/05/18 18:06 Discontinued Medications Ceftriaxone Sodium (Rocephin 1 Gram Ivpb) 1 gm in 100 mls @ 200 mls/hr IVPB STAT STA PRN Reason: Protocol Stop: 06/05/18 15:03 Last Admin: 06/05/18 16:10 Dose: 200 mls/hr eMAR Start Stop Document 06/05/18 16:10 GMD (Rec: 06/05/18 16:10 GMD [id number]) Intravenous Solution Start Date 06/05/18 Start Time 16:10 End Date 06/05/18 End time 16:40 Total Infusion Time 30 Potassium Chloride (K-Dur 20 Meq Er Tab) 20 meq PO STAT STA Stop: 06/05/18 15:13 Last Admin: 06/05/18 16:10 Dose: 20 meq - Scribe Statement The provider has reviewed the documentation as recorded by the Jamin Langston Provider Scribe Attestation: All medical record entries made by the Scribe were at my direction and personally dictated by me. I have reviewed the chart and agree that the record accurately reflects my personal performance of the history, physical exam, medical decision making, and the department course for this patient. I have also personally directed, reviewed, and agree with the discharge instructions and disposition. Disposition/Present on Arrival - Present on Arrival Any Indicators Present on Arrival: No History of DVT/PE: No History of Uncontrolled Diabetes: No Urinary Catheter: No History of Decub. Ulcer: No History Surgical Site Infection Following: None - Disposition Have Diagnosis and Disposition been Completed?: Yes Diagnosis: Dementia, Altered mental status, Cellulitis, Edema, Hypokalemia Disposition: HOSPITALIZED Disposition Time: 16:42 Patient Plan: Admission Patient Problems: Current Active Problems Problem Status Onset Altered mental status Acute Cellulitis Acute Edema Acute Hypokalemia Acute Dementia Chronic Condition: GOOD Discharge Instructions (ExitCare): Cellulitis (ED) Referrals: Sarah Richmond MD [Primary Care Provider] - Follow up with primary
[2018-06-05 14:55] LABS: VENOUS BLOOD GAS BASE EXCESS 10.9 mmol/L (0.0-2.0); VENOUS BLOOD GAS PO2 54 mm/Hg (30-55); VENOUS BLOOD PH 7.41 (7.32-7.43)
[2018-06-05 14:58] LABS: PH,URINE 6.5 (4.7-8.0); URINE BILIRUBIN SMALL (NEGATIVE); URINE BLOOD SMALL (NEGATIVE); URINE GLUCOSE (UA) NEGATIVE (NEGATIVE); URINE LEUKOCYTE ESTERASE NEGATIVE Leu/uL (NEGATIVE); URINE PROTEIN TRACE mg/dL (<30 mg/dL); URINE UROBILINOGEN >=8.0 E.U./dL (<1 E.U./dL)
[2018-06-05 14:59] LABS: BASO # 0.03 K/mm3 (0.0-2.0); BASO % 0.5 % (0.0-3.0); EOS # 0.2 (0.0-0.7); EOS % 3.7 % (1.5-5.0); GRAN # 2.91 (1.4-6.5); GRAN % 45.3 % (50.0-68.0); HEMOGLOBIN 12.6 g/dL (14.0-18.0); LYMPH # 2.1 (1.2-3.4); LYMPH % 32.6 % (22.0-35.0); MEAN CELL VOLUME 97.2 fl (80.0-105.0); MEAN CORPUSCULAR HEMOGLOBIN 31.8 pg (25.0-35.0); MEAN CORPUSCULAR HGB CONC 32.7 g/dl (31.0-37.0); MEAN PLATELET VOLUME 9.7 fl (7.0-11.0); MONO # 1.2 (0.1-0.6); MONO % 17.9 % (1.0-6.0); RBC 3.96 10^6/uL (3.5-6.1); WHITE BLOOD COUNT 6.4 10^3/ul (4.5-11.0)
[2018-06-05 14:59] LABS: URINE APPEARANCE CLEAR (CLEAR); URINE COLOR DARK YELLOW (YELLOW)
[2018-06-05 15:07] LABS: INR 1.73 (0.93-1.08); PARTIAL THROMBOPLASTIN TIME 28.6 Seconds (25.1-36.5)
[2018-06-05 15:12] LABS: URINE BACTERIA TRACE (NEG); URINE EPITHELIAL CELLS 0 - 2 /hpf (0-5); URINE HYALINE CAST 0 - 2 /hpf; URINE WBC 0 - 2 /hpf (0-6)
[2018-06-05 15:12] LABS: ALB/GLOB RATIO 1.1 (1.1-1.8); ALBUMIN 3.5 g/dL (3.0-4.8); ALT/SGPT 19 U/L (7-56); AST/SGOT 24 U/L (17-59); BLOOD UREA NITROGEN 31 mg/dL (7-21); CALCIUM 8.3 mg/dL (8.4-10.5); GFR AFRICAN-AMERICAN 59; GFR NON-AFRICAN AMERICAN 49
[2018-06-05] MEDS ORDERED: Potassium Chloride 20 mEq ER Tab PO STA (15:12)
[2018-06-05 15:22] LABS: TROPONIN I < 0.01 ng/mL
--- NOTE | 2018-06-05 15:38 | CT ---
PROCEDURE: CT HEAD WITHOUT CONTRAST. HISTORY: Altered mental status. COMPARISON: 04/12/2017 TECHNIQUE: Axial computed tomography images were obtained through the head/brain without intravenous contrast. Radiation dose: Total exam DLP = 942.12 mGy-cm. This CT exam was performed using one or more of the following dose reduction techniques: Automated exposure control, adjustment of the mA and/or kV according to patient size, and/or use of iterative reconstruction technique. FINDINGS: HEMORRHAGE: No intracranial hemorrhage. BRAIN: No mass effect or edema. Cerebellar cortical atrophy. Old left parietal infarct, distribution left MCA. VENTRICLES: Unremarkable. No hydrocephalus. CALVARIUM: Unremarkable. PARANASAL SINUSES: Unremarkable as visualized. No significant inflammatory changes. MASTOID AIR CELLS: Unremarkable as visualized. No inflammatory changes. OTHER FINDINGS: None. IMPRESSION: No acute intracranial abnormalities. No significant findings to account for the clinical presentation. No significant interval change compared to the prior examination(s).
--- NOTE | 2018-06-05 15:39 | RAD ---
PROCEDURE: CHEST RADIOGRAPH, 1 VIEW HISTORY: Altered mental status. COMPARISON: 04/12/2017. FINDINGS: LUNGS: Platelike atelectasis, linear scarring right lower lobe. PLEURA: No pneumothorax or pleural fluid seen. CARDIOVASCULAR: Normal. OSSEOUS STRUCTURES: No significant abnormalities. VISUALIZED UPPER ABDOMEN: Normal. OTHER FINDINGS: None. IMPRESSION: No active disease. No acute/significant interval changes.
[2018-06-05] MEDS ORDERED: Vancomycin 1gm in NS 250ml 1 GM/250 ML BAG IVPB STA (16:37)
[2018-06-05] MEDS ORDERED: Pneumococcal 23-Valent Vaccine IM ONE (18:55)
[2018-06-05] MEDS ORDERED: Vancomycin 1gm in NS 250ml 1 GM/250 ML BAG IVPB SCH (19:00)
[2018-06-05 19:54] LABS: VENOUS BLOOD GAS BASE EXCESS 12.1 mmol/L (0.0-2.0); VENOUS BLOOD GAS PO2 41 mm/Hg (30-55); VENOUS BLOOD PH 7.44 (7.32-7.43)
[2018-06-05] MEDS: OLANZapine 5 mg Disintegrating Tab PO SCH (22:24)
[2018-06-06] MEDS: Vancomycin 1gm in NS 250ml 1 GM/250 ML BAG IVPB SCH ×2 (06:25→18:04)
--- NOTE | 2018-06-06 06:32 | HP ---
HISTORY OF PRESENT ILLNESS: Patient is 78 years old, known to me from house call. He was seen in office almost a week ago with increasing leg swelling and weeping ulcer, blister on both legs. They started him on Bactrim DS that he was given for 1 week. He was on p.o. Lasix and local application of Lotrisone, but according to the daughter he felt better for a few days and then his leg swelling got worse, so she brought him to emergency room for further evaluation. No history of fever or chills. No history of nausea or vomiting. Patient is confused, disoriented, and does not complain much. PAST MEDICAL HISTORY: Significant for: 1. Hypertension. 2. Bilateral hip osteoarthritis. 3. Bipolar disorder. 4. Dementia. ALLERGIES: NOT ALLERGIC TO ANY MEDICATION. MEDICATION AT HOME: He is on metolazone 2.5 daily, Lasix 40 mg daily, amlodipine 5 mg daily, metoprolol 25 at bedtime, Sonata 5 mg daily, Zyprexa 10 mg daily, Ativan 0.5 three times a day, Prozac 40 mg daily, Aricept 10 mg at bedtime, and Depakote 500 b.i.d. SOCIAL HISTORY: He is from ; however, they still live together and she seemed to be a industrial chemist along with her daughter for him and history of heavy smoking as well as the history of heavy alcohol use in the past, but currently no alcohol on board. REVIEW OF SYSTEMS: Significant for confusion and increasing bilateral leg swelling. PHYSICAL EXAMINATION: GENERAL: He is awake and alert, not in any distress. VITAL SIGNS: He is afebrile. Pulse 84, respirations 20, blood pressure 122/72. LUNGS: Bilateral fair airflow. No rhonchi or crackle. HEART: S1 and S2 audible. ABDOMEN: Soft, obese, nontender. No rebound. No guarding. NEUROLOGIC: He is awake, alert, confused, and disoriented. EXTREMITIES: Able to move all extremities. LABORATORY EXAM: . CT scan of the head, no acute intracranial finding. No significant finding to account for clinical presentation. ASSESSMENT AND PLAN: 1. Bilateral leg cellulitis. 2. Dementia. 3. Hypertension. 4. Hyperlipidemia. 5. Bipolar disorder. PLAN: We will start patient on IV Lasix, p.o. potassium supplementation. We will start him on Rocephin and vanco. Dr. Castro for wound care has been consulted. Dr. Coats to manage his psych medication. We will follow up his electrolytes in the a.m. and also order for echocardiogram. His last echocardiogram was done in 2013. At that point, his left ventricle was normal in size. We will reevaluate the patient. Sarah Richmond MD
[2018-06-06] MEDS: Potassium Chloride 10 mEq ER Tab PO SCH (08:01)
[2018-06-06 08:02] LABS: BASO # 0.03 K/mm3 (0.0-2.0); BASO % 0.5 % (0.0-3.0); EOS # 0.3 (0.0-0.7); EOS % 4.7 % (1.5-5.0); GRAN # 2.74 (1.4-6.5); HEMOGLOBIN 11.5 g/dL (14.0-18.0); LYMPH # 1.8 (1.2-3.4); LYMPH % 31.2 % (22.0-35.0); MEAN CORPUSCULAR HEMOGLOBIN 31.6 pg (25.0-35.0); MEAN CORPUSCULAR HGB CONC 32.6 g/dl (31.0-37.0); MEAN PLATELET VOLUME 10.2 fl (7.0-11.0); MONO # 0.9 (0.1-0.6); MONO % 15.6 % (1.0-6.0); RBC 3.64 10^6/uL (3.5-6.1); RED CELL DISTRIBUTION WIDTH 12.9 % (11.5-14.5); WHITE BLOOD COUNT 5.7 10^3/ul (4.5-11.0)
[2018-06-06 08:10] LABS: ALBUMIN 2.9 g/dL (3.0-4.8); ALT/SGPT 22 U/L (7-56); AST/SGOT 24 U/L (17-59); BLOOD UREA NITROGEN 22 mg/dL (7-21); CALCIUM 7.8 mg/dL (8.4-10.5); GFR AFRICAN-AMERICAN > 60; GFR NON-AFRICAN AMERICAN > 60
--- NOTE | 2018-06-06 09:02 | CARD ---
APPROVED REPORT EKG Measurement Heart [id number] <Conclusion> Normal sinus rhythm Nonspecific ST and T wave abnormality
[2018-06-06] MEDS: metOLazone 2.5 MG TAB PO SCH (10:12)
[2018-06-06] MEDS: cefTRIAXone 1 gm 1 GM/100 ML BAG IVPB SCH (10:13)
[2018-06-06] MEDS: Divalproex 500 mg ER (ONCE DAILY formulation) PO SCH (10:42)
--- NOTE | 2018-06-06 11:06 | CP.PCM.CON ---
History of Present Illness - History of Present Illness History of Present Illness: 78 yo patient with PMH of CVI, aphasia, dementia, and hypertension seen at bedside for LE edema and cellulitis. Pt is not able to articulate answers to questions due to altered mental status. Pt is resting comfortably and is in no acute distress. Pt was able to eat his meal and communicate that he was feeling well. PMH: hypertension CVI aphasia dementia PSH: broken nose All: NKDA Review of Systems - Review of Systems All systems: reviewed and no additional remarkable complaints except Review of Systems: see hpi Past Patient History - Infectious Disease Hx of Infectious Diseases: None - Past Social History Smoking Status: Former Smoker - CARDIAC Hx Cardiac Disorders: Yes Hx Angina: No Hx Hypertension: Yes - PULMONARY Hx Respiratory Disorders: Yes (USED TO SMOKE CIGARETTES QUIT 10 YRS AGO) Hx Asthma: No Hx Bronchitis: No Hx Emphysema: No - NEUROLOGICAL Hx Neurological Disorder: Yes HX Cerebrovascular Accident: Yes Hx Dementia: Yes - HEENT Hx HEENT Problems: No - RENAL Hx Chronic Kidney Disease: No - ENDOCRINE/METABOLIC Hx Endocrine Disorders: No - HEMATOLOGICAL/ONCOLOGICAL Hx Blood Disorders: No - INTEGUMENTARY Hx Dermatological Problems: Yes (BILATERAL LEG LYMPEDEMA.RIGHT LEG CELLULITIS. ) - MUSCULOSKELETAL/RHEUMATOLOGICAL Hx Musculoskeletal Disorders: Yes Hx Falls: Yes Hx Unsteady Gait: Yes - GASTROINTESTINAL Hx Gastrointestinal Disorders: No - GENITOURINARY/GYNECOLOGICAL Hx Genitourinary Disorders: Yes Hx Incontinence: Yes Hx Prostate Problems: Yes - PSYCHIATRIC Hx Psychophysiologic Disorder: Yes Hx Anxiety: Yes Hx Bipolar Disorder: Yes Hx Depression: Yes Hx Emotional Abuse: No Hx Physical Abuse: No Hx Substance Use: No - SURGICAL HISTORY Hx Surgeries: Yes (INGUINAL HERNIA REPAIR) Other/Comment: Broken Nose - ANESTHESIA Hx Anesthesia: No Meds Allergies/Adverse Reactions: Allergies Allergy/AdvReac Type Severity Reaction Status Date / Time No Known Allergies Allergy Verified 06/05/18 17:35 - Medications Medications: Current Medications Betamethasone/Clotrimazole (Lotrisone) 20 ml TOP BID [facility] Divalproex Sodium (Depakote Er(Once Daily)) 1,000 mg PO DAILY [facility] PRN Reason: Protocol Last Admin: 06/06/18 10:42 Dose: 1,000 mg Donepezil HCl (Aricept) 10 mg PO HS [facility] Last Admin: 06/05/18 22:27 Dose: 10 mg Fluoxetine HCl (Prozac) 40 mg PO DAILY [facility] Last Admin: 06/06/18 10:12 Dose: 40 mg Furosemide (Lasix) 40 mg IVP DAILY [facility] Last Admin: 06/06/18 10:12 Dose: 40 mg Ceftriaxone Sodium (Rocephin 1 Gram Ivpb) 1 gm in 100 mls @ 100 mls/hr IVPB DAILY [facility] PRN Reason: Protocol Last Admin: 06/06/18 10:13 Dose: 100 mls/hr Vancomycin HCl (Vancomycin 1gm) 1 gm in 250 mls @ 167 mls/hr IVPB Q12H [facility] PRN Reason: Protocol Last Admin: 06/06/18 06:25 Dose: 167 mls/hr Lorazepam (Ativan) 0.5 mg PO TID [facility] PRN Reason: Protocol Last Admin: 06/06/18 10:12 Dose: 0.5 mg Metolazone (Zaroxolyn) 2.5 mg PO DAILY [facility] Last Admin: 06/06/18 10:12 Dose: 2.5 mg Metoprolol Tartrate (Lopressor) 25 mg PO HS [facility] Last Admin: 06/05/18 23:12 Dose: 25 mg Olanzapine (Zyprexa) 10 mg PO DAILY [facility] Last Admin: 06/06/18 10:19 Dose: 10 mg Olanzapine (Zyprexa Zydis) 15 mg PO HS [facility] PRN Reason: Protocol Last Admin: 06/05/18 22:24 Dose: 15 mg Potassium Chloride (Klor-Con 10) 10 meq PO BRK [facility] Last Admin: 06/06/18 08:01 Dose: 10 meq Physical Exam - Constitutional Appears: Well, Non-toxic, No Acute Distress - Head Exam Head Exam: ATRAUMATIC, NORMOCEPHALIC - Extremities Exam Additional comments: B/l LE exam Vasc - DP pulses palpable 2/4 b/l. PT pulses nonpalpable secondary to edema. Nonpitting edema to b/l LE, right greater than left. Erythema to the right LE from knee to ankle. Derm - no lesions present, toenails are mycotic to all digits, no interdigital maceration, raised nodules along the LE no drainage, diminished pedal hair growth, erythematous right LE, no streaking noted neuro - unable to assess status due to mental state, pt gave different answers each time I asked the same questions ortho - unable to assess due to mental state, again giving different answers to same questions - Neurological Exam Neurological exam: Alert - Psychiatric Exam Psychiatric exam: Normal Affect, Normal Mood Results - Vital Signs Recent Vital Signs: Last Vital Signs Temp 97.9 F 06/06/18 06:00 Pulse 49 L 06/06/18 06:00 Resp 18 06/06/18 06:00 BP 105/58 L 06/06/18 10:12 Pulse Ox 95 06/06/18 06:00 - Labs Result Diagrams: 06/06/18 07:00 06/06/18 07:00 Labs: Laboratory Results - last 24 hr 06/05/18 06/06/18 06/06/18 19:51 07:00 07:00 WBC 5.7 RBC 3.64 Hgb 11.5 L Hct 35.3 L MCV 97.0 MCH 31.6 MCHC 32.6 RDW 12.9 Plt Count 131 MPV 10.2 Gran % 48.0 L Lymph % (Auto) 31.2 [place] % (Auto) 15.6 H Eos % (Auto) 4.7 Baso % (Auto) 0.5 Gran # 2.74 Lymph # (Auto) 1.8 [place] # (Auto) 0.9 H Eos # (Auto) 0.3 Baso # (Auto) 0.03 pO2 41 VBG pH 7.44 H VBG pCO2 57.0 VBG HCO3 38.7 H VBG Total CO2 40.4 H VBG O2 Sat (Calc) 78.4 H VBG Base Excess 12.1 H VBG Potassium 3.2 L Sodium 141.0 142 Chloride 105.0 102 Glucose 117 H Lactate 1.2 FiO2 21.0 Potassium 3.9 Carbon Dioxide 33 Anion Gap 11 BUN 22 H Creatinine 1.1 Est GFR ( Amer) > 60 Est GFR (Non-Af Amer) > 60 Random Glucose 93 Calcium 7.8 L Total Bilirubin 0.7 AST 24 ALT 22 Alkaline Phosphatase 48 Total Protein 5.8 Albumin 2.9 L Globulin 2.9 Albumin/Globulin Ratio 1.0 L Venous Blood Potassium 3.2 L Assessment & Plan - Assessment and Plan (Free Text) Assessment: 78 yo seen and examined for b/l lower extremity edema and right LE cellulitis Plan: Patient seen and examined Discussed in detail with attending Dr. Gloria CHICAS venous duplex ultrasound ordered - radiologist document negative for DVT Continue with abx - ceftriaxone and vanc Ordered lotrisone lotion for b/l LE - apply twice a day to help with swelling and fungal infection possibly attributing to LE erythema Podiatry will continue to follow patient while in house - Date & Time Date: 06/06/18 Time: 11:15
--- NOTE | 2018-06-06 11:10 | PN ---
DATE: 06/06/2018 HISTORY OF PRESENT ILLNESS: Mr. Blanchard is an 78-year-old male admitted with bilateral leg cellulitis, increased swelling. He was started on IV antibiotics, ceftriaxone and vancomycin. He is currently on aggressive diuresis. Pain in lower extremities has decreased. He has past medical history of hypertension, blood pressure controlled with current medications; also history of bipolar disorder, stable; history of dementia. No actives issues. PAST MEDICAL HISTORY: Hypertension, osteoarthritis, bipolar disorder, dementia. PAST SURGICAL HISTORY: None. ALLERGIES: NO KNOWN DRUG ALLERGIES. HOME MEDICATIONS: Metolazone 2.5 daily, Lasix 40 mg daily, metoprolol 25 mg daily, Sonata 5 mg daily, Zyprexa 10 mg daily, Ativan p.r.n., Prozac, Aricept, Depakote 500 mg p.o. b.i.d. FAMILY HISTORY: Noncontributory. SOCIAL HISTORY: Lives at home. PERSONAL HISTORY: Heavy smoker in the past. History of heavy alcohol abuse in the past. REVIEW OF SYSTEMS: As per HPI. Rest of 12-point review of systems is reviewed and negative. PHYSICAL EXAMINATION: GENERAL: Comfortable in bed, no acute distress. VITAL SIGNS: Temperature 98.7, heart rate 80 per minute, blood pressure 120/70. EXTREMITIES: Bilateral lower extremities, cellulitis. ABDOMEN: Soft, nontender. No hepatosplenomegaly. SPINE: Nontender. SKIN: No petechiae. No rash. CENTRAL NERVOUS SYSTEM: Alert, oriented x3. No focal sensory motor deficit. LABORATORY DATA: Sodium 142, potassium 3.9, creatinine 1.1. White count 5.7, hemoglobin 11.5, hematocrit 35.5, platelets 131. ASSESSMENT: 1. Bilateral lower extremity cellulitis. 2. Hypertension. 3. Bipolar disorder. 4. Anemia, granulocytosis. PLAN: He is currently on IV antibiotics, ceftriaxone and vancomycin, continue that. We will replete the potassium and potassium has improved since admission. Psych consultation ordered for management of psychiatric medications. He will continue Prozac and Depakote. We will continue , metoprolol and Lasix. Jamilah Taylor MD
[2018-06-06] MEDS: Clotrimazole/Betamethasone Lotion(30 ml) TOP SCH (18:04)
[2018-06-06] MEDS: OLANZapine 5 mg Disintegrating Tab PO SCH (21:58)
--- NOTE | 2018-06-07 07:36 | CON ---
HISTORY OF PRESENT ILLNESS: The patient is a 78-year-old white male with a history of psychosis and dementia with multiple psychiatric admissions, alcohol use disorder, in remission greater than 10 years, who was admitted medically after daughter brought him in due to change in mental status in recent weeks. Psychiatry was consulted due to the patient's extensive and severe psychiatric history. I reviewed recent notes from this admission as well as prior psychiatric records and the patient's prior psychiatric admission from 04/14/2017 to 05/04/2017. At that time, the patient was diagnosed with dementia and schizophrenia and discharged on Depakote ER 500 a.m. and 750 at bedtime, Prozac 40 mg daily, Ativan 0.5 p.o. t.i.d. and Zyprexa Zydis 10 daily and 15 at bedtime as well as Sonata 5 mg at bedtime p.r.n. The patient was quite psychotic for that admission and has a history of extremely psychotic behavior including trying to cut off his own penis as well as measuring and smearing feces and throwing items at family. The patient does not appear to demonstrate in this type of behavior on the unit and it is unclear whether he has been compliant with his medications, though he does report that he has been taking them like he supposed to take when I asked him at bedside this morning. The patient is aware that he is at [facility] and that it is May; however, he does not know what year is this. He spoke with intermittent and inconsistent. Eye contact is poor. Thus far, he has been in fair control, cooperative with staff members; however, because of his psychiatric history, he does remain unpredictable. He denies having any paranoia or hallucination. Responses are very brief and they are consistent; however, I still question the credibility in consideration of his poor memory and poor focus at this time. He denies being in any discomfort, pain and does not appear to be in any distress at this time. The patient did admit that he fell on the floor prior to admission and indicated that it hurt. However, denies any recent pain. He denies being depressed or upset about anything. His insight and judgment are poor due to his chronic diagnosis of schizophrenia as well as dementia; however, I suspect that the patient has superimposed delirium as well and followed up with Dr. Richmond last week. For skin infection, was prescribed Bactrim. PSYCHIATRIC HISTORY: As noted, the patient was admitted to the Psychiatric Unit on 04/14/2017 through 05/04/2017 given the diagnosis of schizophrenia and dementia. The patient was discharged with Depakote ER 500 a.m., 750 at bedtime, Prozac 40 mg daily, Zyprexa Zydis 10 mg a.m., 15 mg at bedtime, Sonata 5 mg at bedtime as well as Aricept 5 mg p.o. t.i.d. Previous records indicate that the patient does have history of suicide attempts as well as extremely psychotic behavior such as trying to measure and hurl feces at others. The patient also tried to cut his penis and has thrown other items at his family. The patient does have a history of alcohol use disorder; however, this appears to be in remission for greater than 10 years. SOCIAL HISTORY: The patient resides with his and his adult daughter and his chlorine operator who are very much involved with his care. The patient does have a history of alcohol use disorder; however, this has been in remission for over 10 years. Labs were reviewed and vital signs were reviewed by this provider. As noted, Depakote level was not discussed during this admission. Last Depakote level of 68. BAL from this admission was less than 10. PSYCHIATRIC MEDICATIONS: On the medical floor include Prozac 40 mg daily, Ativan 0.5 t.i.d., Zyprexa Zydis 15 mg at bedtime and 10 mg daily. IMPRESSION: Acute delirium on the background of chronic schizophrenia and dementia. RECOMMENDATIONS: 1. We will continue with Prozac 40 mg daily. 2. We will continue with Ativan 0.5 mg p.o. t.i.d. 3. We will continue with Zyprexa Zydis 10 mg daily and 15 mg at bedtime as the patient has a history of schizophrenia. 4. We will start Depakote 500 mg a.m. and 750 mg at bedtime. It is unclear why it was not restarted during this admission. 5. We will also check valproic acid level in the a.m. 6. Psychiatry will continue to follow the patient. Next followup will be on 06/07/[address] Coats. We will evaluate the patient and possible need for transfer to psychiatric floor, although at this time this presentation does appear to be more secondary to delirium than acute exacerbation of schizophrenia. Giana Dash MD
[2018-06-07] MEDS: Vancomycin 1gm in NS 250ml 1 GM/250 ML BAG IVPB SCH ×2 (08:30→17:30)
--- NOTE | 2018-06-07 09:31 | US ---
HISTORY: Leg pain and swelling. Evaluate for DVT PHYSICIAN(S): Krishan May MD. TECHNIQUE: Duplex sonography and color-flow Doppler with graded compression were used to evaluate the deep venous systems of both lower extremities. The exam is very limited by edema and body habitus. The tibial veins are not well seen FINDINGS: The visualized deep venous systems of both lower extremities are sonographically normal and compressible. Normal wave forms and augmentation are seen. There is no sonographic evidence for deep venous thrombosis in the visualized segments of both lower extremities. IMPRESSION: No sonographic evidence for deep venous thrombosis in the visualized segments of both lower extremities. Limited study
[2018-06-07] MEDS: metOLazone 2.5 MG TAB PO SCH (09:36)
[2018-06-07] MEDS: Potassium Chloride 10 mEq ER Tab PO SCH (09:37)
[2018-06-07] MEDS: Divalproex 500 mg ER (ONCE DAILY formulation) PO SCH (09:37)
[2018-06-07] MEDS: Clotrimazole/Betamethasone Lotion(30 ml) TOP SCH ×2 (10:00→17:30)
[2018-06-07] MEDS: cefTRIAXone 1 gm 1 GM/100 ML BAG IVPB SCH (11:00)
--- NOTE | 2018-06-07 12:18 | CP.PCM.PN ---
Subjective - Date & Time of Evaluation Date of Evaluation: 06/07/18 Time of Evaluation: 12:12 - Subjective Subjective: Podiatry Progress Note 78 y/o male seen this morning with attending Dr. Castro for evaluation of right lower extremity cellulitis and bilateral lower extremity edema. Pt resting in bedside chair at time of visit. Unable to obtain true HPI secondary to altered mental status. Pt does not express pain or discomfort when legs are touched and says they do not hurt. Denies F/C/N/V/CP/SOB. Physical therapy and Dr. Richmond at bedside at time of visit. Objective - Vital Signs/Intake and Output Vital Signs (last 24 hours): Temp Pulse Resp BP Pulse Ox 97.6 F 61 20 116/78 94 L 06/07/18 06:00 06/07/18 06:00 06/07/18 06:00 06/07/18 09:37 06/07/18 06:00 Intake and Output: 06/07/18 06/07/18 06:59 18:59 Intake Total 240 Balance 240 - Medications Medications: Current Medications Betamethasone/Clotrimazole (Lotrisone) 20 ml TOP BID [facility] Last Admin: 06/06/18 18:04 Dose: 1 applic Divalproex Sodium (Depakote Er(Once Daily)) 1,000 mg PO DAILY [facility] PRN Reason: Protocol Last Admin: 06/07/18 09:37 Dose: 1,000 mg Donepezil HCl (Aricept) 10 mg PO HS [facility] Last Admin: 06/06/18 21:58 Dose: 10 mg Fluoxetine HCl (Prozac) 40 mg PO DAILY [facility] Last Admin: 06/07/18 09:36 Dose: 40 mg Ceftriaxone Sodium (Rocephin 1 Gram Ivpb) 1 gm in 100 mls @ 100 mls/hr IVPB DAILY [facility] PRN Reason: Protocol Last Admin: 06/06/18 10:13 Dose: 100 mls/hr Vancomycin HCl (Vancomycin 1gm) 1 gm in 250 mls @ 167 mls/hr IVPB Q12H [facility] PRN Reason: Protocol Last Admin: 06/07/18 08:30 Dose: 167 mls/hr Lorazepam (Ativan) 0.5 mg PO TID [facility] PRN Reason: Protocol Last Admin: 06/07/18 09:36 Dose: 0.5 mg Metolazone (Zaroxolyn) 2.5 mg PO DAILY [facility] Last Admin: 06/07/18 09:36 Dose: 2.5 mg Metoprolol Tartrate (Lopressor) 25 mg PO HS [facility] Last Admin: 06/06/18 21:59 Dose: Not Given Olanzapine (Zyprexa) 10 mg PO DAILY [facility] Last Admin: 06/07/18 09:36 Dose: 10 mg Olanzapine (Zyprexa Zydis) 15 mg PO HS [facility] PRN Reason: Protocol Last Admin: 06/06/18 21:58 Dose: 15 mg Potassium Chloride (Klor-Con 10) 10 meq PO BRK [facility] Last Admin: 06/07/18 09:37 Dose: 10 meq - Labs Labs: 06/06/18 07:00 06/06/18 07:00 PT 20.0 SECONDS (9.4-12.5) H 06/05/18 14:30 INR 1.73 (0.93-1.08) H 06/05/18 14:30 APTT 28.6 Seconds (25.1-36.5) 06/05/18 14:30 - Constitutional Appears: Well, Non-toxic, No Acute Distress - Extremities Exam Additional comments: Lower extremity focused examination: Vasc - DP pulses palpable 2/4 B/L. PT pulses 1/4 B/L. Nonpitting edema to B/L LE , right greater than left. Derm - Mild erythema to the right LE from tibial tuberosity to ankle. No open lesions present. Toenails are thickened and dystrophic to all digits. No interdigital maceration. Raised palpable nodules along the LE, R>L. No drainage noted. No apparent streaking or cellulitis is noted Neuro - unable to assess status due to mental status Ortho - unable to assess due to mental status - Neurological Exam Neurological Exam: Alert, Awake - Psychiatric Exam Psychiatric exam: Normal Affect, Normal Mood Assessment and Plan - Assessment and Plan (Free Text) Assessment: 78 y/o seen and examined for bilateral lower extremity edema and right LE cellulitis Plan: Patient seen and examined with attending Dr. Gloria CHICAS venous duplex ultrasound negative for DVT Lotrisone cream applied to B/L lower extremities Venous ELENI wraps applied to B/L lower extremities Pt is stable from podiatry standpoint Podiatry will continue to follow patient while in house
--- NOTE | 2018-06-07 16:21 | PN ---
DATE: 06/07/2018 SUBJECTIVE: The patient is 78-year-old, seen and examined, lying in bed, seems to be comfortable. No nausea or vomiting. No diarrhea. OBJECTIVE: VITAL SIGNS: Patient is afebrile. Pulse 61, respirations 20, blood pressure 116/78. LUNGS: Bilateral fair airflow. No rhonchi or crackle. HEART: S1, S2. Audible. ABDOMEN: Soft, obese, nontender. No rebound, no guarding. NEUROLOGIC: Patient is awake, alert, but confused, disoriented to person, place, or time. EXTREMITIES: Bilateral leg erythema seems to be resolved. 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 LABORATORY DATA: Sodium 142, potassium 3.9, chloride 102, CO2 of 33. BUN 22, creatinine 1.1. Blood sugar of 93. Blood cultures and urine cultures are negative. ASSESSMENT: 1. Bilateral leg cellulitis seems to be improving. 2. Dementia. 3. Bipolar disorder. 4. Bilateral hip osteoarthritis. 5. Deconditioning and difficulty walking PLAN: I will discontinue Lasix. Continue antibiotics another 24 hours and will follow up echocardiogram. Discussed with psychiatrist for medication adjustment. His leg swelling and redness seem to be getting lot better, possible discharge in the a.m. Sarah Richmond MD
--- NOTE | 2018-06-07 22:16 | CON ---
DATE: 06/07/2018 HISTORY OF PRESENT ILLNESS: In short, the patient is a 78-year-old male with long history of schizoaffective or bipolar disorder with psychotic symptoms. The patient also has dementia and aphasia. The patient has multiple medical issues including hypertension, cerebrovascular accident. The patient was brought in by family because of confusion. Psych consult was called because the patient has history of mental illness and the patient is on psychotropic medications. This fiction writer is very familiar with this patient from the previous admission to the psychiatric inpatient unit in 03/2017, but then, [facility]ci placement was discussed with the family. The patient did not have power of state's attorney and the patient's family was educated how to obtain guardianship for the patient, but apparently it never happened. The patient was seen and examined today; discussed with the primary care physician, Dr. Richmond. As per Dr. Richmond, the patient was not able to see psychiatrist and primary care physician was prescribing psychotropic medication based on discharge summary. The patient was on Zyprexa, Depakote, Prozac, Ativan and the patient's family was providing medication. The patient was seen today since presenting calm. The patient does not know where he is, was not able to answer for the questions being asked. The patient randomly answering for the questions, very hard to interview. The patient keeps repeating that he is nice looking josselyn. Vital signs reviewed. Temperature 97.6, pulse is 61, blood pressure 116/78, respiration 20, oxygen saturation 94. MEDICATIONS: Reviewed. Lotrisone, Rocephin, Depakote 1000 mg at nighttime, Aricept 10 mg at nighttime, Prozac 40 mg daily, Ativan 0.5 mg three times day, metolazone 2.5 mg daily, Lopressor 25 mg at nighttime, Zyprexa Zydis 15 mg at the nighttime and 10 mg daily potassium chloride and vancomycin. DATA: Labs reviewed. Hemoglobin and hematocrit 11.5 and 35.3 respectively. Blood gas reviewed. Chemistry reviewed. Potassium was low, but today 3.9. BUN 22. Urinalysis reviewed. Trace protein, trace ketones. Blood small. Toxicology reviewed. Valproic acid level is 39. Serology RPR is negative but it was in 2017. MENTAL STATUS EXAMINATION: The patient appears to be alert, but disoriented, acceptable personal hygiene, very hard to interview because the patient was not able to answer for the question being asked due to aphasia. Mood is unknown. Thought process disorganized. Thought content, the patient confabulates and disorganized. The patient does not exhibit any aggressive or agitated behavior. Insight and judgment seems to be severely impaired. Impulses are well controlled so far. IMPRESSION: Delirium plus dementia plus aphasia give the patient such presentation. As per history, the patient has either schizoaffective disorder or bipolar disorder with psychotic symptoms. The patient has history of alcohol use disorder. PLAN: We will monitor the patient for now. We will continue current medications. Depakote level was low. This fiction writer is not sure if the patient was taking medication as it was prescribed. Case was discussed with Dr. Richmond. Neurology consultation might be beneficial. Physical Therapy works with the patient. Family meeting needs to take place in regards of the placement, possible placement to the fci but if is willing to take care of the patient themselves, this is patient's family's choice. So far, no agitation, no aggression. We will follow up and advise accordingly. The patient overall presented well. No agitation, no aggression, but the patient makes no much sense. Thank you very much for letting me participate in care of your patient. Should you have any questions, give me a call back. Evelyn Coats MD
[2018-06-07] MEDS: OLANZapine 5 mg Disintegrating Tab PO SCH (23:00)
[2018-06-08] MEDS: Vancomycin 1gm in NS 250ml 1 GM/250 ML BAG IVPB SCH ×2 (04:45→17:47)
[2018-06-08] MEDS: cefTRIAXone 1 gm 1 GM/100 ML BAG IVPB SCH (10:44)
[2018-06-08] MEDS: Divalproex 500 mg ER (ONCE DAILY formulation) PO SCH (10:44)
[2018-06-08] MEDS: Potassium Chloride 10 mEq ER Tab PO SCH ×2 (10:45→14:40)
[2018-06-08] MEDS: Clotrimazole/Betamethasone Lotion(30 ml) TOP SCH (10:45)
[2018-06-08] MEDS: metOLazone 2.5 MG TAB PO SCH (10:45)
[2018-06-08 13:30] VITALS: RESP 18
[2018-06-08] MEDS: Potassium Chloride 20 mEq/15 ml LIQ UD PO SCH (14:40)
--- NOTE | 2018-06-08 15:00 | CP.PCM.PN ---
Subjective - Date & Time of Evaluation Date of Evaluation: 06/08/18 Time of Evaluation: 14:56 - Subjective Subjective: Podiatry Progress Note 78 y/o male seen this morning with attending Dr. Vernon for evaluation of right lower extremity cellulitis and bilateral lower extremity edema. Pt ambulating around room with assistance of physical therapy at time of visit. Pt able to ambulate with assistance into bed. States his legs feel a little tender but are not very painful. Pt is of altered mental status and offers no further HPI. Denies F/C/N/V/CP/SOB. Objective - Vital Signs/Intake and Output Vital Signs (last 24 hours): Temp Pulse Resp BP Pulse Ox 97.7 F 72 18 113/60 95 06/08/18 13:30 06/08/18 13:30 06/08/18 13:30 06/08/18 13:30 06/08/18 13:30 - Medications Medications: Current Medications Betamethasone/Clotrimazole (Lotrisone) 20 ml TOP BID [facility] Last Admin: 06/08/18 10:45 Dose: 1 applic Divalproex Sodium (Depakote Er(Once Daily)) 1,000 mg PO DAILY [facility] PRN Reason: Protocol Last Admin: 06/08/18 10:44 Dose: 1,000 mg Donepezil HCl (Aricept) 10 mg PO HS [facility] Last Admin: 06/07/18 23:00 Dose: 10 mg Fluoxetine HCl (Prozac) 40 mg PO DAILY [facility] Last Admin: 06/08/18 10:44 Dose: 40 mg Ceftriaxone Sodium (Rocephin 1 Gram Ivpb) 1 gm in 100 mls @ 100 mls/hr IVPB DAILY [facility] PRN Reason: Protocol Last Admin: 06/08/18 10:44 Dose: 100 mls/hr Vancomycin HCl (Vancomycin 1gm) 1 gm in 250 mls @ 167 mls/hr IVPB Q12H [facility] PRN Reason: Protocol Last Admin: 06/08/18 04:45 Dose: 167 mls/hr Lorazepam (Ativan) 0.5 mg PO TID [facility] PRN Reason: Protocol Last Admin: 06/08/18 10:52 Dose: 0.5 mg Metolazone (Zaroxolyn) 2.5 mg PO DAILY [facility] Last Admin: 06/08/18 10:45 Dose: 2.5 mg Metoprolol Tartrate (Lopressor) 25 mg PO HS [facility] Last Admin: 06/07/18 21:58 Dose: Not Given Olanzapine (Zyprexa) 10 mg PO DAILY [facility] Last Admin: 06/08/18 10:45 Dose: 10 mg Olanzapine (Zyprexa Zydis) 15 mg PO HS [facility] PRN Reason: Protocol Last Admin: 06/07/18 23:00 Dose: 15 mg Potassium Chloride (Potassium Chloride Oral Soln) 10 meq PO BRK [facility] Last Admin: 06/08/18 14:40 Dose: 10 meq - Labs Labs: 06/06/18 07:00 06/06/18 07:00 PT 20.0 SECONDS (9.4-12.5) H 06/05/18 14:30 INR 1.73 (0.93-1.08) H 06/05/18 14:30 APTT 28.6 Seconds (25.1-36.5) 06/05/18 14:30 - Constitutional Appears: Well, Non-toxic, No Acute Distress - Extremities Exam Additional comments: Lower extremity focused examination: Vasc - DP pulses palpable 2/4 B/L. PT pulses 1/4 B/L. Nonpitting edema to B/L LE , right greater than left. Derm - Mild erythema to the right LE from tibial tuberosity to ankle. No open lesions present. Toenails are thickened and dystrophic to all digits. No interdigital maceration. Raised palpable nodules along the LE, R>L. No drainage noted. No apparent streaking or cellulitis is noted Neuro - unable to assess status due to mental status Ortho - unable to assess due to mental status, however, expresses mild tenderness on palpation of bilateral lower extremities - Neurological Exam Neurological Exam: Alert, Awake - Psychiatric Exam Psychiatric exam: Normal Affect, Normal Mood Assessment and Plan - Assessment and Plan (Free Text) Assessment: 78 y/o seen and examined for bilateral lower extremity edema and right LE cellulitis Plan: Patient seen and examined with attending Dr. Janeen CHICAS venous duplex ultrasound negative for DVT Lotrisone cream applied to B/L lower extremities Venous ELENI wraps applied to B/L lower extremities Pt is stable from podiatry standpoint Podiatry will continue to follow patient while in house
--- NOTE | 2018-06-08 15:55 | PN ---
DATE: 06/08/2018 SUBJECTIVE: The patient was followed up today. Medications reviewed. Discussed with Dr. Richmond yesterday. Please see notes for more detailed information. This fha underwriter would like to make a clarification for the previous note. intermediate placement was offered last admission about a year ago, but the patient's family insisted that patient needs to be discharged back home. The patient's family is willing to take the patient back home whenever he started feeling better and improved from the mental standpoint and physical standpoint. The patient was seen today. As per report from the nursing staff, the patient does not exhibit any aggressive or agitated behavior, but the patient has tendency of repeating the same statement; for example, today, the patient was keep repeating his name "Lo Lemon, Lo Lemon". The patient also had difficult to stay focused during the conversation. The patient was more interested to watch TV rather than to talk to this fha underwriter. There is no aggression, no agitation. The patient is pleasantly confused. The patient does not exhibit any aggressive for agitated behavior. Compliance with the medications is good. OBJECTIVE: VITAL SIGNS: Stable. Temperature 97.7, pulse is 72, blood pressure 113/60, respirations 18, oxygen saturation 95%. MEDICATIONS: Reviewed. The patient is on Rocephin, Depakote, Aricept, Prozac 40 mg daily, Ativan 0.5 mg three times a day, metolazone, Lopressor, Zyprexa, Zydis 15 mg at the nighttime and 10 mg daily, and vancomycin. LABORATORY DATA: Reviewed. Most recent was from today. Hemoglobin hematocrit 35.3. Coagulation is reviewed. Chemistry reviewed. Urinalysis reviewed. Toxicology reviewed. Valproic acid was 39 at the time of admission on 06/06. MENTAL STATUS EXAMINATION: The patient appears to be alert. The patient is disoriented to place, but interested to have interview, poor eye contact. The patient watching TV, seems to be enjoying the show. Mood described as "I am Blanchard, I am [place]." Thought process seems to be disorganized and confabulating. Thought content: The patient is disorganized in thoughts, but socially appropriate. The patient does not exhibit any aggressive or agitated behavior. Insight and judgment seem to be impaired. Impulses are well controlled. IMPRESSION: As per history, the patient has bipolar disorder versus schizoaffective disorder, bipolar type. The patient also has dementia and multiple medical issues. PLAN: Continue current management. Continue current medication. The patient seems to be stable on his current med management and this fha underwriter will suggest continue current medication regimen. Check Depakote level within 48 hours. Physical therapy. The patient's family was willing to take the patient back home and this fha underwriter discussed option of longterm placement last admission which took place here in [facility] about a year ago, but the patient's family refused to place the patient in longterm and insisted that the patient need to be discharged back home. Case was discussed with the social economist as well as medical team as well as nursing staff. Thank you very much for letting me participate in care of your patient. Evelyn Coats MD [facility]
--- NOTE | 2018-06-08 16:09 | PN ---
DATE: 06/08/2018 SUBJECTIVE: The patient is 78-year-old, seen and examined, lying in bed, does not seem to be in any distress, confused, disoriented. He has no sense of time, place, or the person. Ate fair. OBJECTIVE: VITAL SIGNS: The patient is afebrile, pulse 68, respirations 20, and blood pressure 121/65. LUNGS: Bilateral fair airflow. No rhonchi or crackle. HEART: S1, S2 audible. ABDOMEN: Soft, nontender. No rebound, no guarding. EXTREMITIES: Bilateral legs, he has chronic stasis dermatitis. Erythema has significantly improved. He has bilateral scaly skin with +1 edema. NEUROLOGIC: He is awake and alert, but confused, disoriented. LABORATORY DATA: . Blood cultures and urine cultures are negative. ASSESSMENT: 1. Altered mental status. 2. Worsening dementia. 3. History of bipolar disorder. 4. Bilateral leg cellulitis, improving. 5. History of hypertension. PLAN: We will continue the patient on Aricept, he is on Ativan. He is on Depakote, continue on metoprolol. Continue Prozac. He is on Rocephin and vanco. The patient was evaluated by Physical Therapy. Plan is to ask social professionals to evaluate if the patient can be transferred to TCU or [place]. According to that, wherever he is accepted, he can be discharged today later on. Sarah Richmond MD
--- NOTE | 2018-06-08 16:27 | CARD ---
APPROVED REPORT Date of service: 06/08/2018 EXAM: Two-dimensional and M-mode echocardiogram with Doppler and color Doppler. INDICATION DIZZINESS 2D DIMENSIONS Left Atrium (2D)4.0 (1.6-4.0cm)IVSd1.3 (0.7-1.1cm) LVDd4.1 (3.9-5.9cm)PWd1.2 (0.7-1.1cm) LVDs3.1 (2.5-4.0cm)FS (%) 25.7 % LVEF (%)51.1 (>50%) M-Mode DIMENSIONS Aortic Root3.10 (2.2-3.7cm)Aortic Cusp Exc.1.10 (1.5-2.0cm) Aortic Valve AoV Peak Ruucaisi025.0cm/Tata Peak GR.14mmHg Mitral Valve MV E Bcfazvac98.3cm/sMV A Fuptxscd92.1cm/sE/A ratio0.8 TDI E/Lateral E'0.0E/Medial E'0.0 Tricuspid Valve TR Peak Esnelnju298na/sRAP LMNKIPPO22liCnPP Peak Gr.18mmHg [id number] LEFT VENTRICLE The left ventricle is normal size. There is borderline concentric left ventricular hypertrophy. The left ventricular function is normal. The left ventricular ejection fraction is within the normal range. There is normal LV segmental wall motion. Transmitral Doppler flow pattern is Grade I-abnormal relaxation pattern. RIGHT VENTRICLE The right ventricle is normal size. There is normal right ventricular wall thickness. The right ventricular systolic function is normal. ATRIA The left atrium size is normal. The right atrium size is normal. AORTIC VALVE The aortic valve is mildly sclerotic. No aortic regurgitation is present. There is no aortic valvular stenosis. MITRAL VALVE The mitral valve is mildly thickened. There is no mitral valve regurgitation noted. There is no mitral valve stenosis. TRICUSPID VALVE The tricuspid valve is normal in structure. There is trace tricuspid regurgitation. GREAT VESSELS The aortic root is normal in size. The IVC is normal in size and collapses >50% with inspiration. PERICARDIAL EFFUSION There is a trace loculated anterior pericardial effusion. <Conclusion> The left ventricle is normal size. There is borderline concentric left ventricular hypertrophy. The left ventricular function is normal. The left ventricular ejection fraction is within the normal range. There is normal LV segmental wall motion. Transmitral Doppler flow pattern is Grade I-abnormal relaxation pattern.
[2018-06-08] MEDS: OLANZapine 5 mg Disintegrating Tab PO SCH (21:38)
[2018-06-09] MEDS: Vancomycin 1gm in NS 250ml 1 GM/250 ML BAG IVPB SCH (05:42)
[2018-06-09] MEDS: Divalproex 500 mg ER (ONCE DAILY formulation) PO SCH (09:13)
[2018-06-09] MEDS: metOLazone 2.5 MG TAB PO SCH (09:14)
[2018-06-09] MEDS: Potassium Chloride 20 mEq/15 ml LIQ UD PO SCH (09:14)
[2018-06-09] MEDS: Clotrimazole/Betamethasone Lotion(30 ml) TOP SCH (09:15)
[2018-06-09 09:20] VITALS: BP 104/60; PULSE 60; TEMP 97.8; O2SAT 94
--- NOTE | 2018-06-09 10:06 | CP.PCM.PN ---
Subjective - Date & Time of Evaluation Date of Evaluation: 06/09/18 Time of Evaluation: 10:03 - Subjective Subjective: Podiatry Progress Note - Dr. Castro 78 y/o male seen this morning at bedside for evaluation of right lower extremity cellulitis and bilateral lower extremity edema. Pt resting in bed at time of visit. States his legs are not in pain at all today. Pt is of altered mental status and offers no further HPI. Denies F/C/N/V/CP/SOB. Objective - Vital Signs/Intake and Output Vital Signs (last 24 hours): Temp Pulse Resp BP Pulse Ox 97.8 F 60 18 104/60 94 L 06/09/18 06:00 06/09/18 06:00 06/09/18 06:00 06/09/18 06:00 06/09/18 06:00 Intake and Output: 06/09/18 06/09/18 06:59 18:59 Intake Total 700 Balance 700 - Medications Medications: Current Medications Betamethasone/Clotrimazole (Lotrisone) 20 ml TOP BID [facility] Last Admin: 06/09/18 09:15 Dose: 1 applic Divalproex Sodium (Depakote Er(Once Daily)) 1,000 mg PO DAILY [facility] PRN Reason: Protocol Last Admin: 06/09/18 09:13 Dose: 1,000 mg Donepezil HCl (Aricept) 10 mg PO HS [facility] Last Admin: 06/08/18 21:38 Dose: 10 mg Fluoxetine HCl (Prozac) 40 mg PO DAILY [facility] Last Admin: 06/09/18 09:14 Dose: 40 mg Ceftriaxone Sodium (Rocephin 1 Gram Ivpb) 1 gm in 100 mls @ 100 mls/hr IVPB DAILY [facility] PRN Reason: Protocol Last Admin: 06/08/18 10:44 Dose: 100 mls/hr Vancomycin HCl (Vancomycin 1gm) 1 gm in 250 mls @ 167 mls/hr IVPB Q12H [facility] PRN Reason: Protocol Last Admin: 06/09/18 05:42 Dose: 167 mls/hr Lorazepam (Ativan) 0.5 mg PO TID [facility] PRN Reason: Protocol Last Admin: 06/09/18 09:14 Dose: 0.5 mg Metolazone (Zaroxolyn) 2.5 mg PO DAILY [facility] Last Admin: 06/09/18 09:14 Dose: 2.5 mg Metoprolol Tartrate (Lopressor) 25 mg PO HS [facility] Last Admin: 06/08/18 21:38 Dose: 25 mg Olanzapine (Zyprexa) 10 mg PO DAILY [facility] Last Admin: 06/09/18 09:13 Dose: 10 mg Olanzapine (Zyprexa Zydis) 15 mg PO HS [facility] PRN Reason: Protocol Last Admin: 06/08/18 21:38 Dose: 15 mg Potassium Chloride (Potassium Chloride Oral Soln) 10 meq PO BRK [facility] Last Admin: 06/09/18 09:14 Dose: 10 meq - Labs Labs: 06/06/18 07:00 06/06/18 07:00 PT 20.0 SECONDS (9.4-12.5) H 06/05/18 14:30 INR 1.73 (0.93-1.08) H 06/05/18 14:30 APTT 28.6 Seconds (25.1-36.5) 06/05/18 14:30 - Constitutional Appears: Well, Non-toxic, No Acute Distress - Extremities Exam Additional comments: Lower extremity focused examination: Vasc - DP pulses palpable 2/4 B/L. PT pulses 1/4 B/L. Nonpitting edema to B/L LE , right greater than left. Derm - Minimal erythema to the right LE from tibial tuberosity to ankle. No open lesions present. Toenails are thickened and dystrophic to all digits. No interdigital maceration. Diffusely located raised palpable nodules along the LE , R>L. No drainage noted. No apparent streaking or cellulitis is noted Neuro - unable to assess status due to mental status Ortho - minimal tenderness on palpation of bilateral lower extremities - Neurological Exam Neurological Exam: Alert, Awake - Psychiatric Exam Psychiatric exam: Normal Affect, Normal Mood Assessment and Plan - Assessment and Plan (Free Text) Assessment: 78 y/o seen and examined for bilateral lower extremity edema and right LE cellulitis Plan: Patient seen and examined at bedside Discussed with attending Dr. Gloria CHICAS venous duplex ultrasound negative for DVT Lotrisone cream applied to B/L lower extremities Venous ELENI wraps applied to B/L lower extremities Pt is stable from podiatry standpoint Podiatry will continue to follow patient while in house
--- NOTE | 2018-06-09 12:11 | PN ---
DATE: 06/09/2018 FOLLOWUP NOTE SUBJECTIVE: The patient was followed up today. The patient seems to be in good mood today. The patient reported that he feels good. Reported that he had a good night sleep. Reported to have fair appetite. Expressed no concerns at present moment. The patient does not exhibit any aggressive or agitated behavior. The patient tolerated medications well. Denied any side effects. As per nursing staff, the patient is in good behavioral control. There is no agitation or aggression. Vital signs are stable. Temperature 97.8, pulse is 60, blood pressure 104/60, respirations 18, oxygen saturation is 94. Medications reviewed. The patient is on Lotrisone; Rocephin; Depakote 1000 mg daily; Aricept; Prozac 40 mg daily; Ativan 0.5 mg three times day; metolazone; Lopressor; Zyprexa Zydis 10 mg at the morning time, 15 mg at the nighttime; potassium chloride and vancomycin. Labs reviewed. There are no signs of granulocytosis. Granulocytes number is 2.74. Coagulation reviewed. Blood culture reviewed. Chemistry reviewed, seems to be within normal limits. Urinalysis reviewed. Toxicology reviewed. Valproic acid 39. We will repeat valproic acid tomorrow. MENTAL STATUS EXAMINATION: The patient presented to be alert. The patient knows that he is in the hospital, knows his name. Intermittent eye contact. Speech was at times confabulation and loud, but there is no aggression or agitation. Mood described as good. Affect was reactive, mood congruent. Thought process at times disorganized. Thought content, the patient does not exhibit any aggressive for agitated behavior. No signs of suicidality or homicidality. Insight and judgment seems to be impaired. Impulses are well controlled. IMPRESSION: The patient has long history of mental illness plus dementia, but overall the patient presented very well. PLAN: Continue current management. Continue current medications. Zyprexa needs to be continued at the same dose. Prozac needs to be continued at the same dose. Ativan needs to be continued at the same dose, Aricept as well. Depakote 1000 mg daily should be continued. Depakote level will be repeated tomorrow to rule out toxicity. There are no acute issues. The patient is stable on the medications, tolerated well. AIMS zero, no EPS. If the patient required to go to subacute rehab, the patient needs to be followed up by psychiatrist within 72 hours after transfer. Meanwhile, continue current management. This magazine writer will sign off. The patient pose no imminent danger to self or others. Discussed with nursing staff, Air Compressor Engineer as well as Dr. Richmond. Should you have any questions, give me a call back. Thank you very much. Evelyn Coats MD
[2018-06-09] MEDS: cefTRIAXone 1 gm 1 GM/100 ML BAG IVPB SCH (13:18)
--- NOTE | 2018-06-09 19:58 | DS ---
HISTORY OF PRESENT ILLNESS: Patient is 78 years old, seen and examined, confused, disoriented, not in any distress. No nausea, vomiting, or diarrhea. OBJECTIVE: VITAL SIGNS: He is afebrile, pulse 60, respirations 18, blood pressure 104/60. LUNGS: Bilateral fair airflow. No rhonchi or crackles. HEART: S1, S2 audible. ABDOMEN: Soft. Nontender. No rebound. No guarding. NEUROLOGIC: Patient is awake and alert, but confused and disoriented with time, place, and person. EXTREMITIES: Bilateral leg, +1 edema. He has stasis dermatitis that seemed to be improving. LABORATORY DATA: Repeat chemistry, sodium 142, potassium 3.9, chloride 102, CO2 of 33. BUN 22, creatinine 1.1. Blood sugar of 93. Blood cultures and urine cultures are negative. ASSESSMENT: 1. Dementia. 2. Bipolar disorder. 3. Bilateral leg cellulitis, improving. 4. Hypertension. 5. Coagulopathy. 6. History of alcohol abuse in the past. PLAN: We will continue patient on current medications. He is on Aricept, Depakote, and metoprolol. Local wound care is being done by Podiatry team. Continue him on current antibiotics. Patient will be transferred to TCU where he will receive antibiotics, wound care, and physical therapy. Sarah Richmond MD
== END 2018-06-09 13:17 | DRG 603 ==
LOC: ED 14:19 → ERH 16:42 → 5RNO 18:24
PROVIDERS: ADMIT Internal Medicine; ATTEND Internal Medicine
DX: L03.115 Cellulitis of right lower limb (principal); D68.9 Coagulation defect, unspecified; L03.116 Cellulitis of left lower limb; F03.90 Unspecified dementia, unspecified severity, without behavioral disturbance, psychotic disturbance, mood disturbance, and anxiety; E87.6 Hypokalemia; F31.9 Bipolar disorder, unspecified; I10 Essential (primary) hypertension; D46.9 Myelodysplastic syndrome, unspecified; I73.9 Peripheral vascular disease, unspecified; E78.5 Hyperlipidemia, unspecified; F20.9 Schizophrenia, unspecified; M16.0 Bilateral primary osteoarthritis of hip; F10.11 Alcohol abuse, in remission; I69.320 Aphasia following cerebral infarction; Z87.891 Personal history of nicotine dependence

== ENCOUNTER 2018-06-09 13:18 | Inpatient (IN) | payer OTHER, MEDICARE ==
[2018-06-09] MEDS: Vancomycin 1gm in NS 250ml 1 GM/250 ML BAG IVPB SCH (17:18)
[2018-06-09] MEDS: Clotrimazole/Betamethasone Lotion(30 ml) TOP SCH (17:20)
[2018-06-09 20:45] VITALS: BMI 33.5
[2018-06-09] MEDS ORDERED: Pneumococcal 23-Valent Vaccine IM ONE (20:45)
[2018-06-09] MEDS: OLANZapine 5 mg Disintegrating Tab PO SCH (22:34)
[2018-06-10] MEDS: Vancomycin 1gm in NS 250ml 1 GM/250 ML BAG IVPB SCH ×2 (05:09→17:00)
[2018-06-10] MEDS: cefTRIAXone 1 gm 1 GM/100 ML BAG IVPB SCH (05:09)
[2018-06-10] MEDS: Potassium Chloride 20 mEq/15 ml LIQ UD PO SCH (08:09)
--- NOTE | 2018-06-10 08:45 | CP.PCM.PCO ---
Physician Communication Note - Physician Communication Note Physician Communication Note: pt was seen yesterday, pose no imminent danger to self or others Addendum Addendum: 06/10/18 08:43 pt was seen yesterday, pose no imminent danger to self or others, pt supposed to continue all his psychotropic medications which he was stabilized on for years. this marine underwriter signed off in case of change in mental status, please call this marine underwriter back. thank you for letting me participate in care of this patient. valproic acid 39 06/10/18, no signs of toxicity. 06/10/18 08:45
[2018-06-10] MEDS: Divalproex 500 mg ER (ONCE DAILY formulation) PO SCH (09:36)
[2018-06-10] MEDS: Clotrimazole/Betamethasone Lotion(30 ml) TOP SCH ×2 (09:36→17:00)
[2018-06-10] MEDS: metOLazone 2.5 MG TAB PO SCH (09:37)
[2018-06-10] MEDS ORDERED: OLANZAPINE 10 MG PO SCH (10:00)
--- NOTE | 2018-06-10 13:06 | HP ---
HISTORY OF PRESENT ILLNESS: The patient is 78 years old, who was brought to emergency room by the family because of increasing bilateral leg swelling. He also had altered mental status with difficulty walking, so the patient was admitted, has been started on IV antibiotic. Podiatry team is taking care of his wounds and was seen by Dr. Rivas for adjustment of his psych medication. PAST MEDICAL HISTORY: He has past medical history significant for, 1. Hypertension. 2. Bipolar disorder. 3. Dementia. 4. Deconditioning and difficulty walking. ALLERGY: HE IS NOT ALLERGIC TO ANY MEDICATIONS. MEDICATIONS AT HOME: He is on amlodipine 5 mg daily. He is on Zyprexa, metoprolol 25 at bedtime, Ativan 0.5 t.i.d, Lasix 40 mg daily. He is on Aricept 10 mg daily, Depakote 500 mg twice a day. SOCIAL HISTORY: He was , but now. Still lives with and the daughter. He used to be a heavy alcoholic, but quit a couple of years ago. PHYSICAL EXAMINATION: GENERAL: He is awake and alert, but confused, disoriented. VITAL SIGNS: He is afebrile, pulse 58, respirations 18, blood pressure 115/67. LUNGS: Bilateral fair airflow. No rhonchi or crackle. HEART: S1 and S2 audible. ABDOMEN: Soft. Nontender. No rebound. No guarding. NEUROLOGIC: He is awake and alert, but confused, disoriented. ASSESSMENT: 1. Bilateral leg cellulitis that has improved. 2. Dementia. 3. Bipolar disorder. 4. Deconditioning and difficulty walking. 5. Hip osteoarthritis. PLAN: We will continue the patient on current medications. We will give antibiotic another day for today. We will switch to p.o. antibiotic tomorrow. Continue physical therapy. We will reevaluate the patient in the a.m. Sarah Richmond MD
[2018-06-11] MEDS: OLANZapine 5 mg Disintegrating Tab PO SCH ×2 (05:39→21:36)
[2018-06-11] MEDS: cefTRIAXone 1 gm 1 GM/100 ML BAG IVPB SCH (05:40)
[2018-06-11] MEDS: Vancomycin 1gm in NS 250ml 1 GM/250 ML BAG IVPB SCH (05:41)
[2018-06-11] MEDS: Potassium Chloride 20 mEq/15 ml LIQ UD PO SCH (07:57)
[2018-06-11] MEDS: Divalproex 500 mg ER (ONCE DAILY formulation) PO SCH (09:20)
[2018-06-11] MEDS: Clotrimazole/Betamethasone Lotion(30 ml) TOP SCH ×2 (09:20→18:18)
[2018-06-11] MEDS: metOLazone 2.5 MG TAB PO SCH (09:21)
--- NOTE | 2018-06-11 13:40 | PN ---
DATE: 06/11/2018 SUBJECTIVE: The patient is 78 years old, seen and examined, participating in therapy. Awake and alert, but confused and disoriented, eating fair. PHYSICAL EXAMINATION: VITAL SIGNS: He is afebrile, pulse 62, respirations 20, and blood pressure 100/68. LUNGS: Bilateral fair airflow. No rhonchi or crackle. HEART: S1, S2 audible. ABDOMEN: Soft, nontender. No rebound, no guarding. NEUROLOGIC: The patient is awake and alert, but confused and disoriented. EXTREMITIES: Bilateral legs, swelling has significantly improved. He has already crusty lesions on both legs, but erythema and swelling have almost resolved. ASSESSMENT: 1. Bilateral cellulitis, improved. 2. Altered mental status, back to his baseline. 3. Osteoarthritis. 4. Deconditioning and difficulty walking. PLAN: I will discontinue Rocephin and vancomycin, and switch him to Ceftin 500 twice a day for 5 more days and continue local wound care. Continue physical therapy. We will follow up the patient in a.m. Sarah Richmond MD
--- NOTE | 2018-06-11 14:58 | CP.PCM.CON ---
<Hyun Guillermo - Last Filed: 06/11/18 15:10> History of Present Illness - History of Present Illness History of Present Illness: 78 yo patient with PMH of CVI, aphasia, dementia, and hypertension seen at bedside for LE edema and cellulitis. Pt is not able to articulate answers to questions due to altered mental status. Pt is resting comfortably and is in no acute distress. Pt was able to eat his meal and communicate that he was feeling well. PSH:broken nose All:NKDA SocHx: denies EtOH, cigarette or illicit drug use Review of Systems - Review of Systems All systems: reviewed and no additional remarkable complaints except (per HPI) Past Patient History - Infectious Disease Hx of Infectious Diseases: None - Past Social History Smoking Status: Former Smoker - CARDIAC Hx Hypertension: Yes - PULMONARY Hx Respiratory Disorders: Yes (USED TO SMOKE CIGARETTES QUIT 10 YRS AGO) Hx Asthma: No Hx Bronchitis: No Hx Emphysema: No - NEUROLOGICAL HX Cerebrovascular Accident: Yes - HEENT Hx HEENT Problems: No - RENAL Hx Chronic Kidney Disease: No - ENDOCRINE/METABOLIC Hx Endocrine Disorders: No - HEMATOLOGICAL/ONCOLOGICAL Hx Blood Disorders: No - INTEGUMENTARY Hx Dermatological Problems: Yes (BILATERAL LEG LYMPEDEMA.RIGHT LEG CELLULITIS. ) - MUSCULOSKELETAL/RHEUMATOLOGICAL Hx Falls: Yes - GASTROINTESTINAL Hx Gastrointestinal Disorders: Yes (H/O INGUINAL HERNIA REPAIR) - GENITOURINARY/GYNECOLOGICAL Hx Genitourinary Disorders: No Hx Reproductive Disorders: Yes (PROSTATE) - PSYCHIATRIC Hx Psychophysiologic Disorder: Yes Hx Anxiety: Yes Hx Bipolar Disorder: Yes Hx Depression: Yes Hx Emotional Abuse: No Hx Physical Abuse: No Hx Substance Use: No - SURGICAL HISTORY Hx Surgeries: Yes (INGUINAL HERNIA REPAIR) Other/Comment: Broken Nose - ANESTHESIA Hx Anesthesia: No Meds Allergies/Adverse Reactions: Allergies Allergy/AdvReac Type Severity Reaction Status Date / Time No Known Allergies Allergy Verified 06/09/18 20:52 - Medications Medications: Current Medications Betamethasone/Clotrimazole (Lotrisone) 0 ml TOP BID CINTHYA PRN Reason: Protocol Last Admin: 06/11/18 09:20 Dose: 1 applic Cefpodoxime Proxetil (Vantin) 100 mg PO DAILY CINTHYA PRN Reason: Protocol Divalproex Sodium (Depakote Er(Once Daily)) 1,000 mg PO DAILY CINTHYA PRN Reason: Protocol Last Admin: 06/11/18 09:20 Dose: 1,000 mg Donepezil HCl (Aricept) 10 mg PO HS CINTHYA PRN Reason: Protocol Last Admin: 06/11/18 05:39 Dose: Not Given Fluoxetine HCl (Prozac) 40 mg PO DAILY CINTHYA PRN Reason: Protocol Last Admin: 06/11/18 09:20 Dose: 40 mg Lorazepam (Ativan) 0.5 mg PO TID CINTHYA PRN Reason: Protocol Last Admin: 06/11/18 13:24 Dose: 0.5 mg Metolazone (Zaroxolyn) 2.5 mg PO DAILY CINTHYA PRN Reason: Protocol Last Admin: 06/11/18 09:21 Dose: 2.5 mg Metoprolol Tartrate (Lopressor) 25 mg PO HS CINTHYA PRN Reason: Protocol Last Admin: 06/10/18 21:38 Dose: Not Given Olanzapine (Zyprexa Zydis) 15 mg PO HS CINTHYA PRN Reason: Protocol Last Admin: 06/11/18 05:39 Dose: Not Given Olanzapine (Zyprexa) 10 mg PO DAILY CINTHYA Last Admin: 06/11/18 09:21 Dose: 10 mg Potassium Chloride (Potassium Chloride Oral Soln) 10 meq PO BRK CINTHYA PRN Reason: Protocol Last Admin: 06/11/18 07:57 Dose: 10 meq Physical Exam - Constitutional Appears: Well, Non-toxic, No Acute Distress - Extremities Exam Additional comments: Lower extremity focused examination: Vasc - DP pulses palpable 2/4 B/L. PT pulses 1/4 B/L. Nonpitting edema to B/L LE , right greater than left. Derm - Minimal erythema to the right LE from tibial tuberosity to ankle. No open lesions present. Toenails are thickened and dystrophic to all digits. No interdigital maceration. Diffusely located raised palpable nodules along the LE , R>L. No drainage noted. No apparent streaking or cellulitis is noted Neuro - unable to assess status due to mental status Ortho - minimal tenderness on palpation of bilateral lower extremities - Neurological Exam Neurological exam: Alert, Oriented x3 - Psychiatric Exam Psychiatric exam: Normal Affect, Normal Mood Results - Vital Signs Recent Vital Signs: Last Vital Signs Temp 98.7 F 06/10/18 16:00 Pulse 62 06/10/18 16:00 Resp 20 06/10/18 16:00 BP 100/68 06/10/18 21:38 Pulse Ox 92 L 06/10/18 16:00 Assessment & Plan - Assessment and Plan (Free Text) Assessment: 78 y/o seen and examined for bilateral lower extremity edema and right LE cellulitis Plan: Patient seen and examined at bedside Discussed with attending Dr. Janeen CHICAS venous duplex ultrasound negative for DVT Lotrisone cream applied to B/L lower extremities Venous ELENI wraps applied to B/L lower extremities Pt is stable from podiatry standpoint Podiatry will continue to follow patient while in house <Mono Vernon - Last Filed: 06/11/18 18:19> Meds - Medications Medications: Current Medications Betamethasone/Clotrimazole (Lotrisone) 0 ml TOP BID CINTHYA PRN Reason: Protocol Last Admin: 06/11/18 09:20 Dose: 1 applic Cefpodoxime Proxetil (Vantin) 100 mg PO DAILY CINTHYA PRN Reason: Protocol Divalproex Sodium (Depakote Er(Once Daily)) 1,000 mg PO DAILY CINTHYA PRN Reason: Protocol Last Admin: 06/11/18 09:20 Dose: 1,000 mg Donepezil HCl (Aricept) 10 mg PO HS CINTHYA PRN Reason: Protocol Last Admin: 06/11/18 05:39 Dose: Not Given Fluoxetine HCl (Prozac) 40 mg PO DAILY CINTHYA PRN Reason: Protocol Last Admin: 06/11/18 09:20 Dose: 40 mg Lorazepam (Ativan) 0.5 mg PO TID CINTHYA PRN Reason: Protocol Last Admin: 06/11/18 13:24 Dose: 0.5 mg Metolazone (Zaroxolyn) 2.5 mg PO DAILY CINTHYA PRN Reason: Protocol Last Admin: 06/11/18 09:21 Dose: 2.5 mg Metoprolol Tartrate (Lopressor) 25 mg PO HS CINTHYA PRN Reason: Protocol Last Admin: 06/10/18 21:38 Dose: Not Given Olanzapine (Zyprexa Zydis) 15 mg PO HS CINTHYA PRN Reason: Protocol Last Admin: 06/11/18 05:39 Dose: Not Given Olanzapine (Zyprexa) 10 mg PO DAILY CINTHYA Last Admin: 06/11/18 09:21 Dose: 10 mg Potassium Chloride (Potassium Chloride Oral Soln) 10 meq PO BRK CINTHYA PRN Reason: Protocol Last Admin: 06/11/18 07:57 Dose: 10 meq Results - Vital Signs Recent Vital Signs: Last Vital Signs Temp 99.6 F 06/11/18 16:00 Pulse 72 06/11/18 16:00 Resp 20 06/11/18 16:00 BP 106/72 06/11/18 16:00 Pulse Ox 92 L 06/11/18 16:00 Attending/Attestation - Attestation I have personally seen and examined this patient.: Yes I have fully participated in the care of the patient.: Yes I have reviewed all pertinent clinical information: Yes
[2018-06-12] MEDS: Potassium Chloride 20 mEq/15 ml LIQ UD PO SCH (08:52)
[2018-06-12] MEDS: Cefpodoxime (Vantin) 100 mg Tab PO SCH (09:34)
[2018-06-12] MEDS: metOLazone 2.5 MG TAB PO SCH (09:35)
[2018-06-12] MEDS: Clotrimazole/Betamethasone Lotion(30 ml) TOP SCH ×2 (09:35→17:04)
[2018-06-12] MEDS: Divalproex 500 mg ER (ONCE DAILY formulation) PO SCH (09:35)
--- NOTE | 2018-06-12 10:18 | CP.PCM.PN ---
<Shashi Oneil - Last Filed: 06/12/18 10:16> Subjective - Date & Time of Evaluation Date of Evaluation: 06/12/18 Time of Evaluation: 10:16 - Subjective Subjective: 78 yo patient with PMH of CVI, aphasia, dementia, and hypertension seen at bedside for LE edema and cellulitis. Pt is not able to articulate answers to questions mental status. Pt is resting comfortably and is in no acute distress. Pt was able communicate that he was feeling well and no pain to the lower extremity. Objective - Vital Signs/Intake and Output Vital Signs (last 24 hours): Temp Pulse Resp BP Pulse Ox 99.6 F 72 20 115/72 92 L 06/11/18 16:00 06/11/18 16:00 06/11/18 16:00 06/11/18 21:35 06/11/18 16:00 - Medications Medications: Current Medications Betamethasone/Clotrimazole (Lotrisone) 0 ml TOP BID CINTHYA PRN Reason: Protocol Last Admin: 06/12/18 09:35 Dose: 1 applic Cefpodoxime Proxetil (Vantin) 100 mg PO DAILY CINTHYA PRN Reason: Protocol Last Admin: 06/12/18 09:34 Dose: 100 mg Divalproex Sodium (Depakote Er(Once Daily)) 1,000 mg PO DAILY CINTHYA PRN Reason: Protocol Last Admin: 06/12/18 09:35 Dose: 1,000 mg Donepezil HCl (Aricept) 10 mg PO HS CINTHYA PRN Reason: Protocol Last Admin: 06/11/18 21:35 Dose: 10 mg Fluoxetine HCl (Prozac) 40 mg PO DAILY CINTHYA PRN Reason: Protocol Last Admin: 06/12/18 09:34 Dose: 40 mg Lorazepam (Ativan) 0.5 mg PO TID CINTHYA PRN Reason: Protocol Last Admin: 06/12/18 09:33 Dose: 0.5 mg Metolazone (Zaroxolyn) 2.5 mg PO DAILY CINTHYA PRN Reason: Protocol Last Admin: 06/12/18 09:35 Dose: 2.5 mg Metoprolol Tartrate (Lopressor) 25 mg PO HS CINTHYA PRN Reason: Protocol Last Admin: 06/11/18 21:35 Dose: 25 mg Olanzapine (Zyprexa Zydis) 15 mg PO HS CINTHYA PRN Reason: Protocol Last Admin: 06/11/18 21:36 Dose: 15 mg Olanzapine (Zyprexa) 10 mg PO DAILY CINTHYA Last Admin: 06/12/18 09:34 Dose: 10 mg Potassium Chloride (Potassium Chloride Oral Soln) 10 meq PO BRK CINTHYA PRN Reason: Protocol Last Admin: 06/12/18 08:52 Dose: 10 meq - Constitutional Appears: Well, Non-toxic, No Acute Distress - Extremities Exam Extremities Exam: absent: Calf Tenderness Additional comments: Lower extremity focused examination: Vasc - DP pulses palpable 2/4 B/L. PT pulses 1/4 B/L. Nonpitting edema to B/L LE , right greater than left. Derm - Minimal erythema to the right LE from tibial tuberosity to ankle. No open lesions present. Toenails are thickened and dystrophic to all digits. No interdigital maceration. Diffusely located raised palpable nodules along the LE , R>L. No drainage noted. No apparent streaking or cellulitis is noted Neuro - unable to assess status due to mental status Ortho - minimal tenderness on palpation of bilateral lower extremities Assessment and Plan - Assessment and Plan (Free Text) Assessment: 78 y/o seen and examined for bilateral lower extremity edema and right LE cellulitis Plan: Patient seen and examined at bedside Discussed with attending Dr. Janeen CHICAS venous duplex ultrasound negative for DVT Lotrisone cream applied to B/L lower extremities Venous ELENI wraps applied to B/L lower extremities Pt is stable from podiatry standpoint Podiatry will continue to follow patient while in house <Mono Vernon - Last Filed: 06/15/18 12:23> Objective - Vital Signs/Intake and Output Vital Signs (last 24 hours): Temp Pulse Resp BP Pulse Ox 97.5 F L 62 18 106/61 95 06/15/18 10:00 06/15/18 10:00 06/15/18 10:00 06/15/18 10:00 06/15/18 10:00 Intake and Output: 06/15/18 06/15/18 06:59 18:59 Intake Total 420 Balance 420 - Medications Medications: Current Medications Betamethasone/Clotrimazole (Lotrisone) 0 ml TOP BID CINTHYA PRN Reason: Protocol Last Admin: 06/15/18 09:52 Dose: 1 applic Cefpodoxime Proxetil (Vantin) 100 mg PO DAILY CINTHYA PRN Reason: Protocol Last Admin: 06/15/18 09:53 Dose: 100 mg Divalproex Sodium (Depakote Er(Once Daily)) 1,000 mg PO DAILY CINTHYA PRN Reason: Protocol Last Admin: 06/15/18 10:27 Dose: 1,000 mg Donepezil HCl (Aricept) 10 mg PO HS CINTHYA PRN Reason: Protocol Last Admin: 06/14/18 21:50 Dose: 10 mg Fluoxetine HCl (Prozac) 40 mg PO DAILY CINTHYA PRN Reason: Protocol Last Admin: 06/15/18 09:52 Dose: 40 mg Lorazepam (Ativan) 0.5 mg PO TID CINTHYA PRN Reason: Protocol Last Admin: 06/15/18 09:51 Dose: 0.5 mg Metolazone (Zaroxolyn) 2.5 mg PO DAILY CINTHYA PRN Reason: Protocol Last Admin: 06/15/18 10:00 Dose: 2.5 mg Metoprolol Tartrate (Lopressor) 25 mg PO HS CINTHYA PRN Reason: Protocol Last Admin: 06/14/18 23:37 Dose: 25 mg Olanzapine (Zyprexa Zydis) 15 mg PO HS CINTHYA PRN Reason: Protocol Last Admin: 06/14/18 21:52 Dose: 15 mg Olanzapine (Zyprexa) 10 mg PO DAILY CINTHYA Last Admin: 06/15/18 10:01 Dose: 10 mg Potassium Chloride (Potassium Chloride Oral Soln) 10 meq PO BRK CINTHYA PRN Reason: Protocol Last Admin: 06/15/18 08:12 Dose: 10 meq Attending/Attestation - Attestation I have personally seen and examined this patient.: Yes I have fully participated in the care of the patient.: Yes I have reviewed all pertinent clinical information, including history, physical exam and plan: Yes
--- NOTE | 2018-06-12 19:51 | PN ---
DATE: 06/12/2018 SUBJECTIVE: The patient is 78-year-old, seen and examined, awake and alert, but confused, disoriented, not in any distress, eating and tolerating. PHYSICAL EXAMINATION: VITAL SIGNS: Temperature 99.6, pulse 72, respirations 20, blood pressure 115/72. LUNGS: Bilateral fair airflow. No rhonchi or crackle. HEART: S1 and S2 audible. ABDOMEN: Soft, nontender. No rebound, no guarding. NEUROLOGIC: The patient is awake, alert, oriented, communicative. ASSESSMENT: 1. Altered mental status, seems to be back to his baseline. 2. Dementia. 3. Bipolar disorder. 4. Hypertension. 5. Bilateral chronic stasis dermatitis. PLAN: Currently, the patient is on p.o. Vantin. I will continue wound care, continue physical therapy. We will follow up the patient in a.m. Sarah Richmond MD
[2018-06-12] MEDS: OLANZapine 5 mg Disintegrating Tab PO SCH (21:58)
[2018-06-13] MEDS: Potassium Chloride 20 mEq/15 ml LIQ UD PO SCH (08:13)
[2018-06-13] MEDS: metOLazone 2.5 MG TAB PO SCH (09:14)
[2018-06-13] MEDS: Cefpodoxime (Vantin) 100 mg Tab PO SCH (09:14)
[2018-06-13] MEDS: Divalproex 500 mg ER (ONCE DAILY formulation) PO SCH (09:15)
[2018-06-13] MEDS: Clotrimazole/Betamethasone Lotion(30 ml) TOP SCH ×2 (09:15→17:10)
[2018-06-13] MEDS: OLANZapine 5 mg Disintegrating Tab PO SCH (22:17)
--- NOTE | 2018-06-14 00:37 | PN ---
DATE: 06/13/2018 SUBJECTIVE: He is comfortable in bed, in no acute distress. No events overnight. He is confused. Appetite has improved. He is participating in physical therapy. REVIEW OF SYSTEMS: As per HPI. Rest of 12-point review of systems reviewed negative. PHYSICAL EXAMINATION: GENERAL: Comfortable in bed, in no acute distress. VITAL SIGNS: Temperature 98.6, heart rate is 80 per minute, respiratory rate 18 per minute, blood pressure 100/60. HEENT: Pallor positive. NECK: No lymphadenopathy. CHEST: Air entry present and equal bilaterally. No added sounds. CARDIOVASCULAR: S1, S2 normal. No murmur. No gallop. ABDOMEN: Soft, nontender. No hepatosplenomegaly. METAL BALER: Awake, alert, confused, disoriented. EXTREMITIES: Bilateral leg swelling improved. LABORATORY DATA: Reviewed. ASSESSMENT AND PLAN: Bilateral lower extremity cellulitis, anemia, osteoarthritis, deconditioning. PLAN: Currently on oral antibiotic Ceftin. Currently on Vantin. We will continue Depakote. Continue Prozac. Metoprolol 25 mg at bedtime, potassium supplement 10 mEq daily. Jamilah Taylor MD
[2018-06-14] MEDS: Potassium Chloride 20 mEq/15 ml LIQ UD PO SCH (07:54)
[2018-06-14] MEDS: Divalproex 500 mg ER (ONCE DAILY formulation) PO SCH (09:37)
[2018-06-14] MEDS: metOLazone 2.5 MG TAB PO SCH (09:38)
[2018-06-14] MEDS: Clotrimazole/Betamethasone Lotion(30 ml) TOP SCH ×2 (09:38→18:05)
[2018-06-14] MEDS: Cefpodoxime (Vantin) 100 mg Tab PO SCH (09:38)
--- NOTE | 2018-06-14 10:24 | CP.PCM.PN ---
Subjective - Date & Time of Evaluation Date of Evaluation: 06/14/18 Time of Evaluation: 10:21 - Subjective Subjective: Podiatry Progress Note- Dr. Vernon/Dr. Castro 78 yo patient with PMH of CVI, aphasia, dementia, and hypertension seen at bedside for LE edema and cellulitis. Pt is not able to articulate answers to questions mental status. Pt is resting comfortably and is in no acute distress. Patient expresses no pain with dressing change. Objective - Vital Signs/Intake and Output Vital Signs (last 24 hours): Temp Pulse Resp BP Pulse Ox 97.8 F 76 17 107/50 L 97 06/13/18 18:18 06/13/18 22:27 06/13/18 18:18 06/13/18 22:27 06/13/18 18:18 - Medications Medications: Current Medications Betamethasone/Clotrimazole (Lotrisone) 0 ml TOP BID CINTHYA PRN Reason: Protocol Last Admin: 06/14/18 09:38 Dose: 1 applic Cefpodoxime Proxetil (Vantin) 100 mg PO DAILY CINTHYA PRN Reason: Protocol Last Admin: 06/14/18 09:38 Dose: 100 mg Divalproex Sodium (Depakote Er(Once Daily)) 1,000 mg PO DAILY CINTHYA PRN Reason: Protocol Last Admin: 06/14/18 09:37 Dose: 1,000 mg Donepezil HCl (Aricept) 10 mg PO HS CINTHYA PRN Reason: Protocol Last Admin: 06/13/18 21:57 Dose: 10 mg Fluoxetine HCl (Prozac) 40 mg PO DAILY CINTHYA PRN Reason: Protocol Last Admin: 06/14/18 09:38 Dose: 40 mg Lorazepam (Ativan) 0.5 mg PO TID CINTHYA PRN Reason: Protocol Last Admin: 06/14/18 09:36 Dose: 0.5 mg Metolazone (Zaroxolyn) 2.5 mg PO DAILY CINTHYA PRN Reason: Protocol Last Admin: 06/14/18 09:38 Dose: 2.5 mg Metoprolol Tartrate (Lopressor) 25 mg PO HS CINTHYA PRN Reason: Protocol Last Admin: 06/13/18 22:27 Dose: Not Given Olanzapine (Zyprexa Zydis) 15 mg PO HS CINTHYA PRN Reason: Protocol Last Admin: 06/13/18 22:17 Dose: 15 mg Olanzapine (Zyprexa) 10 mg PO DAILY [facility] Last Admin: 06/14/18 09:39 Dose: 10 mg Potassium Chloride (Potassium Chloride Oral Soln) 10 meq PO BRK CINTHYA PRN Reason: Protocol Last Admin: 06/14/18 07:54 Dose: 10 meq - Constitutional Appears: Well, Non-toxic, No Acute Distress - Extremities Exam Extremities Exam: absent: Calf Tenderness Additional comments: Lower extremity focused examination: Vasc - DP pulses palpable 2/4 B/L. PT pulses 1/4 B/L. Nonpitting edema to B/L LE , right greater than left. Derm - Minimal erythema to the right LE from tibial tuberosity to ankle. No open lesions present. Toenails are thickened and dystrophic to all digits. No interdigital maceration. Diffusely located raised palpable nodules along the LE , R>L. No drainage noted. No apparent streaking or cellulitis is noted Neuro - unable to assess status due to mental status Ortho - minimal tenderness on palpation of bilateral lower extremities - Neurological Exam Neurological Exam: Awake Assessment and Plan - Assessment and Plan (Free Text) Assessment: 78 y/o seen and examined for bilateral lower extremity edema and right LE cellulitis Plan: Patient seen and examined at bedside Discussed with attending Dr. Gloria CHICAS venous duplex ultrasound negative for DVT Lotrisone cream applied to B/L lower extremities Tubrigrip compression applied. Venous ELENI wraps applied to B/L lower extremities Pt is stable from podiatry standpoint Podiatry will continue to follow patient while in house
--- NOTE | 2018-06-14 16:13 | PN ---
DATE: 06/14/2018 SUBJECTIVE: Patient is 78-year-old, seen and examined, confused, disoriented, able to walk with the walker, not very stable to walk. PHYSICAL EXAMINATION: VITAL SIGNS: He is afebrile, pulse 70, respirations 17, blood pressure 107/50. LUNGS: Bilateral fair airflow. No rhonchi or crackle. HEART: S1, S2 audible. ABDOMEN: Soft, nontender. No rebound. No guarding. NEUROLOGICAL: Patient is awake and alert, but confused and disoriented. ASSESSMENT: 1. Bilateral leg cellulitis, improved. 2. Dementia. 3. Hypertension. 4. Hyperlipidemia. 5. Deconditioning, difficulty walking. PLAN: We will continue on current medication. Patient is scheduled to be discharged on 06/16/2018. Sarah Richmond MD
[2018-06-14] MEDS: OLANZapine 5 mg Disintegrating Tab PO SCH (21:52)
[2018-06-15] MEDS: Potassium Chloride 20 mEq/15 ml LIQ UD PO SCH (08:12)
[2018-06-15] MEDS: Clotrimazole/Betamethasone Lotion(30 ml) TOP SCH ×2 (09:52→19:00)
[2018-06-15] MEDS: Cefpodoxime (Vantin) 100 mg Tab PO SCH (09:53)
[2018-06-15] MEDS: metOLazone 2.5 MG TAB PO SCH (10:00)
[2018-06-15] MEDS: Divalproex 500 mg ER (ONCE DAILY formulation) PO SCH (10:27)
[2018-06-15 16:54] VITALS: PULSE 68; RESP 20; O2SAT 92
[2018-06-15 16:56] VITALS: TEMP 98.8
--- NOTE | 2018-06-15 17:34 | PN ---
DATE: 06/15/2018 SUBJECTIVE: The patient is 78 years old, seen and examined, lying in bed, seems to be comfortable. Eating and tolerating, participating in therapy. Still unstable gait. PHYSICAL EXAMINATION: VITAL SIGNS: He is afebrile, pulse 62, respirations 18, and blood pressure 106/51. LUNGS: Bilateral fair airflow. No rhonchi or crackle. HEART: S1 and S2 audible. ABDOMEN: Soft and nontender. No rebound, no guarding. NEUROLOGIC: The patient is awake and alert, but confused and disoriented. ASSESSMENT: 1. Bilateral leg edema. 2. Chronic stasis dermatitis. 3. Dementia. 4. Hypertension. 5. Hyperlipidemia. PLAN: We will continue the patient on current medication. He is scheduled to be discharged on Thursday. We will reevaluate the patient in a.m. Sarah Richmond MD
[2018-06-15] MEDS: OLANZapine 5 mg Disintegrating Tab PO SCH (22:11)
[2018-06-15 22:16] VITALS: BP 103/56
[2018-06-16] MEDS: Divalproex 500 mg ER (ONCE DAILY formulation) PO SCH (10:08)
[2018-06-16] MEDS: Potassium Chloride 20 mEq/15 ml LIQ UD PO SCH (10:10)
[2018-06-16] MEDS: Clotrimazole/Betamethasone Lotion(30 ml) TOP SCH (10:12)
[2018-06-16] MEDS: metOLazone 2.5 MG TAB PO SCH (10:13)
[2018-06-16] MEDS: Cefpodoxime (Vantin) 100 mg Tab PO SCH (10:13)
--- NOTE | 2018-06-17 09:24 | DS ---
HISTORY OF PRESENT ILLNESS: The patient is a 78-year-old who was admitted because of altered mental status. Also, had bilateral leg edema and cellulitis, was treated with IV antibiotic and Lasix, did well, was in TCU, got physical therapy, still unstable walk, being transferred to [facility] today. PHYSICAL EXAMINATION: GENERAL: He is awake, alert, oriented, communicative. VITAL SIGNS: The patient is afebrile, pulse 60, respirations 20, blood pressure 103/56. LUNGS: Bilateral fair airflow. No rhonchi or crackle. HEART: S1 and S2 audible. ABDOMEN: Soft , nontender. No rebound, no guarding. NEUROLOGIC: The patient is awake, alert, but confused and disoriented. ASSESSMENT AND PLAN: 1. Altered mental status superimposed on underlying dementia. Now, he is back to his baseline. 2. Hypertension. 3. Bilateral leg cellulitis, improving. 4. Hyperlipidemia. 5. Bipolar disorder. PLAN: The patient is currently stable. He needs more physical therapy, so he is being transferred to subacute rehab. We will continue current medications that include Zyprexa, metoprolol, lorazepam, Prozac, Aricept, Depakote, Zaroxolyn and he will be following with us and doctor up in [facility]. Sarah Richmond MD
== END 2018-06-16 14:31 | DRG 556 ==
LOC: TRCU 13:18
PROVIDERS: ADMIT Internal Medicine; ATTEND Internal Medicine
PROC: F07Z9FZ Gait Training/Functional Ambulation Treatment using Assistive, Adaptive, Supportive or Protective Equipment (ICD-10-PCS; principal; 2018-06-10)
PROC: F08Z4FZ Home Management Treatment using Assistive, Adaptive, Supportive or Protective Equipment (ICD-10-PCS; 2018-06-10)
DX: R26.2 Difficulty in walking, not elsewhere classified (principal); L03.115 Cellulitis of right lower limb; L03.116 Cellulitis of left lower limb; R47.01 Aphasia; F31.9 Bipolar disorder, unspecified; F03.90 Unspecified dementia, unspecified severity, without behavioral disturbance, psychotic disturbance, mood disturbance, and anxiety; I10 Essential (primary) hypertension; E78.5 Hyperlipidemia, unspecified; I87.2 Venous insufficiency (chronic) (peripheral); D64.9 Anemia, unspecified; M16.10 Unilateral primary osteoarthritis, unspecified hip; Z87.891 Personal history of nicotine dependence; Z86.73 Personal history of transient ischemic attack (TIA), and cerebral infarction without residual deficits

== ENCOUNTER 2018-09-24 12:38 | Inpatient (IN) | payer MEDICARE ==
[2018-09-24 13:04] VITALS: BMI 46.7
--- NOTE | 2018-09-24 13:27 | ED PDOC ---
Arrival/HPI - General Chief Complaint: Altered Mental Status Time Seen by Provider: 09/24/18 12:56 Historian: EMS EM Caveat: Altered Mental Status - Critical Care Critical Care Minutes: 30 minutes - History of Present Illness Narrative History of Present Illness (Text): 09/24/18 13:23 A 78 year old male, whose past medical history includes Aphasia, Dementia and H ypertension, is brought into the emergency department via EMS from home for further evaluation of altered mental status. Family called EMS for patient to be brought into the emergency department. HPI/ ROS limited due to patient's altered mental status. PMD: Dr. Richmond Time/Duration: Prior to Arrival Symptom Onset: Sudden Symptom Course: Unchanged Activities at Onset: Rest, Light Context: Home Past Medical History - Provider Review Nursing Documentation Reviewed: Yes - Infectious Disease Hx of Infectious Diseases: None - Cardiac Hx Hypertension: Yes - Pulmonary Hx Respiratory Disorders: Yes (USED TO SMOKE CIGARETTES QUIT 10 YRS AGO) Hx Asthma: No Hx Bronchitis: No Hx Emphysema: No - Neurological HX Cerebrovascular Accident: Yes - HEENT Hx HEENT Disorder: No - Renal Hx Renal Disorder: No - Endocrine/Metabolic Hx Endocrine Disorders: No - Hematological/Oncological Hx Blood Disorders: No - Integumentary Hx Dermatological Disorder: Yes (BILATERAL LEG LYMPEDEMA.RIGHT LEG CELLULITIS. 06-05-18) - Musculoskeletal/Rheumatological Hx Falls: Yes - Gastrointestinal Hx Gastrointestinal Disorders: Yes (H/O INGUINAL HERNIA REPAIR) - Genitourinary/Gynecological Hx Genitourinary Disorders: No Hx Reproductive Disorders: Yes (PROSTATE) - Psychiatric Hx Psychophysiologic Disorder: Yes Hx Anxiety: Yes Hx Bipolar Disorder: Yes Hx Depression: Yes Hx Emotional Abuse: No Hx Physical Abuse: No Hx Substance Use: No - Surgical History Other/Comment: Broken Nose - Anesthesia Hx Anesthesia: Yes Hx Anesthesia Reactions: No Hx Malignant Hyperthermia: No - Suicidal Assessment Feels Threatened In Home Enviroment: No Family/Social History - Physician Review Nursing Documentation Reviewed: Yes Family/Social History: No Known Family HX Smoking Status: Former Smoker Hx Alcohol Use: Yes (H/O ETOH ABUSE. QUIT 10 YRS AGO.) Hx Substance Use: No Allergies/Home Meds Allergies/Adverse Reactions: Allergies No Known Allergies Allergy (Verified 06/09/18 20:52) Review of Systems - Physician Review All systems were reviewed & negative as marked: Yes - Review of Systems Systems not reviewed;Unavailable: Altered Mental Status Physical Exam Vital Signs Reviewed: Yes Temperature: Afebrile Blood Pressure: Normal Pulse: Regular Respiratory Rate: Normal Appearance: Positive for: Non-Toxic, Other (Foul odor. Smells like urine. ) Pain Distress: None Mental Status: Positive for: Confused. No: Alert and Oriented X 3 (Alert and Oriented X2) - Systems Exam Head: Present: Atraumatic, Normocephalic Pupils: Present: PERRL Extroacular Muscles: Present: EOMI Conjunctiva: Present: Normal Mouth: Present: Moist Mucous Membranes (Mildly moist mucous membranes.) Neck: Present: Normal Range of Motion Respiratory/Chest: Present: Clear to Auscultation, Good Air Exchange. No: Respiratory Distress, Accessory Muscle Use Cardiovascular: Present: Regular Rate and Rhythm, Murmurs, Normal S1, S2 Abdomen: No: Tenderness, Distention, Peritoneal Signs Back: Present: Normal Inspection Upper Extremity: Present: Normal Inspection. No: Cyanosis, Edema Lower Extremity: Present: Normal Inspection, Edema (+1 lower extremity pitting edema.) Neurological: Present: GCS=15, CN II-XII Intact, Speech Normal Skin: Present: Warm, Dry, Normal Color. No: Rashes Psychiatric: Present: Alert, Oriented x 3, Normal Insight, Normal Concentration Medical Decision Making ED Course and Treatment: 09/24/18 13:26 Impression: A 78 year old male is bought into the emergency department via EMS for further evaluation of altered mental status. Differential Diagnosis included but are not limited to: AMS secondary to dehydration/ sepsis/ electrolyte abnormality. Plan: -- Head CT -- EKG -- Chest X-ray -- Labs -- Blood/ Urine Culture -- Urinalysis -- Reassess and disposition Prior Visits: Notes and results from previous visits were reviewed. Progress Notes: 09/24/18 13:58: Discussed with family at bedside. They denied an trauma. They stated that the patient was in rehab and since his rehab, he has not gotten any better in regards to strength and mental status. 09/24/18 14:31 EKG: Ordered, reviewed, and independently interpreted the EKG. Rate : 67 BPM Rhythm : NSR Interpretation : Q waves in leads 3 and AVF. Chest X-ray Dictator : Krishan Broussard MD Report Date : 09/24/2018 14:33:48 IMPRESSION: No active disease. No acute infiltrate. 09/24/18 15:53: Elevated potassium. Potassium PO ordered. Potassium IV ordered in NS fluids. 09/24/18 16:[address] Richmond who will admit patient onto her service to telemetry and requested consult for Dr. Coats. Patient placed on Telemetry due to severe hypokalemia meets criteria for full admission. - Critical Care Critical Care Minutes: 30 minutes - Lab Interpretations I have reviewed the lab results: Yes - RAD Interpretation Radiology Orders: 09/24/18 13:04 HEAD W/O CONTRAST [CT] Stat CHEST PORTABLE [RAD] Stat - EKG Interpretation Interpreted by ED Physician: Yes Type: 12 lead EKG - Scribe Statement The provider has reviewed the documentation as recorded by the Scribe Kenyatta Langston Provider Scribe Attestation: All medical record entries made by the Scribe were at my direction and personally dictated by me. I have reviewed the chart and agree that the record accurately reflects my personal performance of the history, physical exam, medical decision making, and the department course for this patient. I have also personally directed, reviewed, and agree with the discharge instructions and disposition. Disposition/Present on Arrival - Present on Arrival Any Indicators Present on Arrival: No History of DVT/PE: No History of Uncontrolled Diabetes: No Urinary Catheter: No History of Decub. Ulcer: No History Surgical Site Infection Following: None - Disposition Have Diagnosis and Disposition been Completed?: Yes Diagnosis: Altered mental status, Hypokalemia Disposition: HOSPITALIZED Disposition Time: 16:15 Patient Plan: Admission Patient Problems: Current Active Problems Problem Status Onset Altered mental status Acute Hypokalemia Acute Condition: GUARDED
[2018-09-24 14:31] LABS: VENOUS BLOOD GAS BASE EXCESS 17.7 mmol/L (0.0-2.0); VENOUS BLOOD GAS PO2 44 mm/Hg (30-55); VENOUS BLOOD PH 7.42 (7.32-7.43)
[2018-09-24 14:37] LABS: BASO # 0.02 K/mm3 (0.0-2.0); BASO % 0.2 % (0.0-3.0); EOS # 0.1 (0.0-0.7); EOS % 0.6 % (1.5-5.0); GRAN # 7.4 (1.4-6.5); GRAN % 67.6 % (50.0-68.0); HEMOGLOBIN 13.4 g/dL (14.0-18.0); LYMPH # 1.6 (1.2-3.4); MEAN CELL VOLUME 99.8 fl (80.0-105.0); MEAN CORPUSCULAR HEMOGLOBIN 33.2 pg (25.0-35.0); MEAN CORPUSCULAR HGB CONC 33.3 g/dl (31.0-37.0); MEAN PLATELET VOLUME 11.3 fl (7.0-11.0); MONO # 1.8 (0.1-0.6); MONO % 16.6 % (1.0-6.0); RBC 4.04 10^6/uL (3.5-6.1)
--- NOTE | 2018-09-24 14:37 | RAD ---
Date of service: 09/24/2018 HISTORY: Sepsis Patient COMPARISON: 06/05/2018 FINDINGS: LUNGS: Linear scar/atelectasis mid right lung. Ill-defined opacity at left base unchanged from prior examination. Likely chronic. PLEURA: Elevated right hemidiaphragm. No pleural effusion or pneumothorax. CARDIOVASCULAR: No aortic atherosclerotic calcification present. Normal cardiac size. No pulmonary vascular congestion. OSSEOUS STRUCTURES: No significant abnormalities. VISUALIZED UPPER ABDOMEN: Normal. OTHER FINDINGS: None. IMPRESSION: No active disease. No acute infiltrate.
[2018-09-24 15:08] LABS: ARTERIAL BLOOD GAS HEMOGLOBIN 12.8 g/dL (11.7-17.4); ARTERIAL BLOOD GAS O2 CAPACITY 17.4 mL/dl (16-24); ARTERIAL BLOOD GAS O2 CONTENT 15.9 ML/dl (15-23); ARTERIAL BLOOD GAS O2 SAT 91.4 % (95-98); ARTERIAL BLOOD GAS PCO2 53 mm/Hg (35-45); ARTERIAL BLOOD GAS PH 7.54 (7.35-7.45); ARTERIAL BLOOD GAS TCO2 46.9 mmol.L (22-28)
[2018-09-24 15:09] LABS: ARTERIAL BLOOD GAS HCO3 45.3 mmol/L (21-28)
[2018-09-24 15:15] LABS: INR 1.65; PARTIAL THROMBOPLASTIN TIME 26.3 Seconds (25.1-36.5)
[2018-09-24 15:19] LABS: ACETAMINOPHEN < 10.0 ug/ml (10.0-20.0); SALICYLATE < 1 mg/dL (2.0-20.0)
[2018-09-24 15:29] LABS: B-TYPE NATRIURETIC PEPTIDE 1330 pg/mL (0-450); TROPONIN I 0.06 ng/mL
[2018-09-24 15:42] LABS: ALBUMIN 3.9 g/dL (3.0-4.8); ALT/SGPT 46 U/L (7-56); AST/SGOT 273 U/L (17-59); BLOOD UREA NITROGEN 51 mg/dL (7-21); CALCIUM 8.8 mg/dL (8.4-10.5); GFR NON-AFRICAN AMERICAN 54
[2018-09-24] MEDS ORDERED: Potassium Chloride 20 mEq ER Tab PO STA (15:55)
[2018-09-24] MEDS ORDERED: cefTRIAXone 1 gm 1 GM/100 ML BAG IVPB STA (16:18)
--- NOTE | 2018-09-24 16:59 | CT ---
Date of service: 09/24/2018 PROCEDURE: CT HEAD WITHOUT CONTRAST. HISTORY: altered mental status COMPARISON: 06/05/2018 TECHNIQUE: Axial computed tomography images were obtained through the head/brain without intravenous contrast. Radiation dose: Total exam DLP = 893.18 mGy-cm. This CT exam was performed using one or more of the following dose reduction techniques: Automated exposure control, adjustment of the mA and/or kV according to patient size, and/or use of iterative reconstruction technique. FINDINGS: HEMORRHAGE: No intracranial hemorrhage. BRAIN: No mass effect or edema. Moderate diffuse atrophy consistent with age. Moderate patchy and confluent periventricular and deep/subcortical white matter lucency consistent with microvascular ischemic change. 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 No evidence of acute infarct. VENTRICLES: Unremarkable. No hydrocephalus. CALVARIUM: Unremarkable. PARANASAL SINUSES: Minimal chronic ethmoid sinusitis MASTOID AIR CELLS: Unremarkable as visualized. No inflammatory changes. OTHER FINDINGS: None. IMPRESSION: No evidence of acute infarct. No intracranial mass or hemorrhage. 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 Atrophy and chronic white matter ischemic change.
[2018-09-24 21:02] LABS: VENOUS BLOOD GAS BASE EXCESS 22.1 mmol/L (0.0-2.0); VENOUS BLOOD GAS PO2 46 mm/Hg (30-55); VENOUS BLOOD PH 7.48 (7.32-7.43)
[2018-09-24 21:23] LABS: URINE BILIRUBIN NEGATIVE (NEGATIVE); URINE BLOOD TRACE-INTACT (NEGATIVE); URINE GLUCOSE (UA) NEGATIVE (NEGATIVE); URINE LEUKOCYTE ESTERASE NEGATIVE Leu/uL (NEGATIVE); URINE PROTEIN TRACE mg/dL (<30 mg/dL); URINE UROBILINOGEN 0.2 E.U./dL (<1 E.U./dL)
[2018-09-24 21:24] LABS: URINE APPEARANCE CLEAR (CLEAR); URINE COLOR YELLOW (YELLOW)
[2018-09-24 21:30] LABS: URINE BACTERIA NEG (NEG); URINE RBC 0 - 2 /hpf (0-2); URINE WBC NEGATIVE /hpf (0-6)
[2018-09-24 21:35] LABS: BARBITURATES, UR POSITIVE (NEGATIVE); OPIATES, UR NEGATIVE (NEGATIVE); PHENCYCLIDINE, UR NEGATIVE (NEGATIVE)
[2018-09-24 21:54] LABS: BENZODIAZEPINES, UR NEGATIVE (NEGATIVE)
[2018-09-24] MEDS ORDERED: Influenza Vaccine 60 mcg/0.5 mL SYR (4YR UP) IM ONE (22:32)
[2018-09-24] MEDS ORDERED: Pneumococcal 23-Valent Vaccine IM ONE (22:32)
[2018-09-25 01:59] LABS: VENOUS BLOOD GAS BASE EXCESS 22.7 mmol/L (0.0-2.0); VENOUS BLOOD GAS PO2 83 mm/Hg (30-55); VENOUS BLOOD PH 7.53 (7.32-7.43)
--- NOTE | 2018-09-25 02:39 | HP ---
HISTORY OF PRESENT ILLNESS: The patient is 78 years old known to me from house call. The patient was recently admitted for altered mental status on 06/05/2018. At that point, he was admitted in acute care floor, was treated and initially he was transferred to TCU. He was admitted to TCU to complete course of antibiotics, from TCU he was transferred to Psych unit. The patient physical therapy and was sent home recently. Family noticed that he has been increasingly confused, disoriented, non-cooperative. There is no documented history of nausea or vomiting. No history of fever. No chills. No cough. No congestion. PAST MEDICAL HISTORY: Significant for: 1. Bipolar disorder. 2. History of dementia. 3. Hypertension. 4. Intermittent bilateral leg cellulitis. ALLERGIES: HE IS NOT ALLERGIC TO ANY MEDICATIONS. MEDICATIONS AT HOME: He is on: 1. Lasix. 2. Potassium. 3. Zyprexa. 4. Lorazepam. 5. Donepezil. 6. Depakote. SOCIAL HISTORY: He used to be heavy smoker and heavy drinker. PHYSICAL EXAMINATION: GENERAL: He is awake and alert, but confused and disoriented. VITAL SIGNS: He is afebrile, pulse 62, respirations 19, and blood pressure 125/62. LUNGS: Bilateral fair airflow. No rhonchi or crackle. HEART: S1 and S2 audible. ABDOMEN: Soft, obese, nontender. No rebound. No guarding. NEUROLOGIC: He is awake and alert, but confused, disoriented. He answers simple questions some time appropriately, some time not. LABORATORY EXAM: WBC 11, hemoglobin 13, hematocrit 40, and platelet of 104. PT 19.0 and INR 1.65. Chemistry: Sodium 142, potassium 2.2, chloride 86, CO2 of 42, BUN 51, creatinine 1.3, and blood sugar of 156. Magnesium 2.6. AST 273. BNP 1330. Urinalysis is unremarkable. Urine tox is negative. ASSESSMENT: 1. Altered mental status. 2. Severe hypokalemia. 3. Bipolar disorder. 4. Bilateral leg edema. 5. History of schizophrenia. PLAN: We will supplement his potassium. I will request for Dr. Rivas to evaluate patient from psychological point of view. We will monitor his electrolytes, supplement his potassium. Follow up electrolytes in a.m. Sarah Richmond MD [facility] # [phone]
[2018-09-25 07:03] LABS: BASO # 0.02 K/mm3 (0.0-2.0); BASO % 0.3 % (0.0-3.0); EOS # 0.3 (0.0-0.7); EOS % 3.8 % (1.5-5.0); GRAN # 4.18 (1.4-6.5); GRAN % 54.4 % (50.0-68.0); HEMOGLOBIN 10.5 g/dL (14.0-18.0); LYMPH # 1.9 (1.2-3.4); LYMPH % 24.1 % (22.0-35.0); MEAN CELL VOLUME 100.9 fl (80.0-105.0); MEAN CORPUSCULAR HEMOGLOBIN 31.9 pg (25.0-35.0); MEAN CORPUSCULAR HGB CONC 31.6 g/dl (31.0-37.0); MEAN PLATELET VOLUME 9.6 fl (7.0-11.0); MONO # 1.3 (0.1-0.6); MONO % 17.4 % (1.0-6.0); RBC 3.29 10^6/uL (3.5-6.1); RED CELL DISTRIBUTION WIDTH 13.1 % (11.5-14.5); WHITE BLOOD COUNT 7.7 10^3/uL (4.5-11.0)
[2018-09-25] MEDS: OLANZapine 5 mg Disintegrating Tab PO SCH ×2 (07:04→21:10)
[2018-09-25] MEDS: Clotrimazole/Betamethasone Lotion(30 ml) TOP SCH ×3 (07:57→17:13)
[2018-09-25] MEDS ORDERED: Potassium Chloride 20 mEq/15 ml LIQ UD PO SCH (08:00)
[2018-09-25 08:25] LABS: ALBUMIN 2.8 g/dL (3.0-4.8); ALT/SGPT 50 U/L (7-56); AST/SGOT 219 U/L (17-59); BLOOD UREA NITROGEN 41 mg/dL (7-21); CALCIUM 7.7 mg/dL (8.4-10.5); GFR NON-AFRICAN AMERICAN > 60
[2018-09-25] MEDS: Divalproex 500 mg ER (ONCE DAILY formulation) PO SCH (09:22)
--- NOTE | 2018-09-25 10:07 | CARD ---
APPROVED REPORT Date of service: 09/24/2018 EKG Measurement Heart [id number] <Conclusion> Normal sinus rhythm Nonspecific ST abnormality Prolonged QT Small q in lll No change
[2018-09-25] MEDS ORDERED: Potassium Chloride 20 mEq ER Tab PO ONE (12:30)
--- NOTE | 2018-09-25 15:07 | PN ---
DATE: 09/25/2018 SUBJECTIVE: The patient is 78 years old, seen and examined, confused and disoriented. Not in any distress. Eating and tolerating. PHYSICAL EXAMINATION: VITAL SIGNS: He is afebrile, pulse 71, respirations 18, blood pressure 104/58. LUNGS: Bilateral fair airflow. No rhonchi or crackle. HEART: S1 and S2 audible. ABDOMEN: Soft, obese, nontender. No rebound. No guarding. NEUROLOGICAL: The patient is awake and alert, but confused and disoriented. EXTREMITIES: Bilateral leg, he has erythema and keratosis. LABORATORY EXAM: WBC 7.7, hemoglobin 10.5, hematocrit 33.2, platelet Of 140. Chemistry: Sodium 143, potassium 2.3, chloride 94, CO2 of 42, BUN 41, creatinine 1, blood sugar of 116. Urine is negative. Urine tox positive for barbiturate. Blood cultures are negative. CT of the head is unremarkable. ASSESSMENT: 1. Altered mental status with underlying dementia, history of cerebrovascular accident in remote past with old left temporoparietal territory infarct. 2. Bipolar disorder. 3. Hypokalemia. 4. Dementia. 5. History of bipolar disorder. PLAN: We will supplement potassium 40 mg p.o. one dose stat and then we will give 2 riders of 10 mEq of potassium. The patient's oral intake is fair. We will discontinue IV fluid. Increase his daily potassium to 20 mg daily. Follow up potassium in the a.m. Sarah Richmond MD
--- NOTE | 2018-09-26 01:23 | CON ---
DATE: 09/25/2018 HISTORY OF PRESENT ILLNESS: The patient is a 78-year-old male with a long and debilitating psychiatric history with a diagnosis including schizophrenia and dementia. The patient was recently hospitalized medically for cellulitis, treated with antibiotics, and sent to [facility] after medical admission the week from 06/09/2018 to 06/16/2018, and now medically hospitalized again after he presented with altered mental status to the ER on 09/24/2018. it does appear that delirium is playing a part in the patient's presentation again during this admission. I am familiar with the patient from my visits with him last year and I am familiar with his history, and I met with the patient at bedside and he acknowledges my presence and he does appear to be preoccupied, almost catatonic, and does not cooperate with questioning. This is not his baseline. He is unable to answer questions to correct orientation and cannot follow commands or respond to much questioning, either with me or with staff in general. Does not appear to be actively hallucinating; however, full mental status exam cannot be accomplished due to the patient's altered mental status. Insight and Judgement are poor, however. Vital signs and labs were reviewed. RELEVANT PSYCHIATRIC MEDICATIONS: Include Depakote ER 1000 mg daily, Aricept 10 mg h.s., Prozac 40 mg daily, Ativan 0.5 mg IV every 6 hours p.r.n., Zyprexa Zydis 15 mg h.s. and 10 mg daily. PSYCHIATRIC HISTORY: As noted, the patient has a long and debilitating psychiatric history, last admitted on 04/14/2017 through 05/04/2017. He was discharged on a regimen of Depakote 500 mg a.m. and 700 h.s., Prozac 40, Zyprexa Zydis 10 a.m. and 15 mg h.s., Sonata 5 mg h.s. p.r.n., and Ativan 0.5 mg t.i.d. The patient has a significant history of disorganization and psychotic behavior when he decompensates and per prior notes, he has a history of being aggressive towards his family, smearing feces, agitation, and in general, not being able to function and thrive when he is not taking his psychiatric medication. The patient has a history of severe decompensations when he does not psychiatrically stabilize and is clearly a danger to himself or others in these situations. Medication trials include Lamictal, Effexor XR as well as Celexa and Seroquel. SOCIAL HISTORY: The patient lives with his daughter and . IMPRESSION: First of all, this patient appears to be suffering from delirium, rule out decompensation as the patient has a history of schizophrenia as well as concurrent dementia. PLAN: 1. We will continue with Depakote ER 1000 mg daily. No recent Depakote level noted in the system except for 06/06/2018. This provider will order another Depakote level to be drawn in the morning. 2. We will continue with Prozac 40 mg daily. 3. We will continue with Ativan 0.5 mg every 6 hours p.r.n. as well as start Ativan standing 0.5 mg t.i.d. as this might help with catatonia. 4. We will continue with Zyprexa 10 mg daily and 15 mg h.s. 5. Psychiatry will continue to follow with the patient on a daily basis to monitor his progress and tolerance to medications. Hopefully, his mental status improves as his medical condition improves because the delirium can take weeks to resolve after his medical condition is resolved. Next followup will be on 09/26/2018, by Dr. Dash. Giana Dash MD [facility]
[2018-09-26 07:16] LABS: ALB/GLOB RATIO 0.9 (1.1-1.8); ALBUMIN 2.8 g/dL (3.0-4.8); ALT/SGPT 50 U/L (7-56); AST/SGOT 158 U/L (17-59); BLOOD UREA NITROGEN 30 mg/dL (7-21); CALCIUM 7.9 mg/dL (8.4-10.5); GFR NON-AFRICAN AMERICAN > 60
[2018-09-26] MEDS: Divalproex 500 mg ER (ONCE DAILY formulation) PO SCH (09:25)
[2018-09-26] MEDS: Potassium Chloride 20 mEq/15 ml LIQ UD PO SCH (09:25)
[2018-09-26] MEDS ORDERED: Potassium Chloride 20 mEq ER Tab PO ONE ×2 (09:47→18:00)
--- NOTE | 2018-09-26 10:14 | PN ---
DATE: 09/26/2018 SUBJECTIVE: The patient has no complaints of any chest pain. No shortness of breath. No headaches. PHYSICAL EXAMINATION: VITAL SIGNS: Temperature is 99.7, pulse of 63, blood pressure is 106/60, respirations 20. GENERAL: The patient is lying in bed, flat, comfortable. HEENT: No oral lesion. Anicteric sclerae. Moist mucosa. NECK: No JVD, adenopathy, or thyromegaly. CARDIOVASCULAR: S1 and S2, regular. No murmurs, rubs, or gallops. LUNGS: Clear to auscultation bilaterally. No wheeze, rales, or rhonchi. ABDOMEN: Bowel sounds are positive, soft, nontender and nondistended. EXTREMITIES: No cyanosis, clubbing or edema. LABORATORY DATA: White count of 7.7, hemoglobin 10.5. Creatinine is 0.8, potassium is 2.8. ASSESSMENT: 1. Hypokalemia. 2. Bipolar disorder. 3. Dementia, Alzheimer's type. PLAN: The patient is currently on Aricept for dementia. He is going to be on metoprolol. He is on potassium. I will increase his potassium, he remains low. Dimitri Carbone MD
[2018-09-26] MEDS: Clotrimazole/Betamethasone Lotion(30 ml) TOP SCH ×3 (11:53→19:36)
--- NOTE | 2018-09-26 16:48 | CON ---
DATE: 09/26/2018 CHIEF COMPLAINT: Confusion. HISTORY OF PRESENT ILLNESS: This is a 78-year-old man with history of debilitating psychiatric disorder and schizophrenia, Alzheimer's-induced dementia with occasional behavioral disturbance, who was recently seen on psychiatric floor for psychotic behavior decompensated, was placed on Depakote Extended Release 1000 mg daily, which also helps his seizure-like activity given that he has a history of old left temporoparietal lobe infarct. Currently, he is alert and oriented to person and place, confused and follows simple commands. He is hypokalemic still and mildly deconditioned. PAST MEDICAL HISTORY: He has history of bipolar disorder, history of dementia, hypertension, bilateral cellulitis, history of left temporal and parietal lobe infarct, and dyslipidemia. FAMILY HISTORY: Noncontributory. ALLERGIES: NO KNOWN DRUG ALLERGIES. REVIEW OF SYSTEMS: Fourteen-point review of systems is negative except as per the HPI. SOCIAL HISTORY: Heavy smoker. History of heavy drinking. LABORATORY DATA: Sodium is 144, potassium 2.8, chloride 99, carbon dioxide of 40, BUN of 30, creatinine 0.8. Random glucose 122. PHYSICAL EXAMINATION: VITAL SIGNS: Temperature 99.7, pulse rate of 63, blood pressure 106/60, respiratory rate . GENERAL: The patient is lethargic, following simple commands. Moving all extremities. HEENT: Atraumatic, normocephalic. PERRLA. Extraocular muscles intact. NECK: Supple. No JVD. No adenopathy noted. LUNGS: Clear to auscultation. No adventitious sounds. HEART: S1 and S2, normal rate and rhythm. No murmurs, rubs, or gallops. ABDOMEN: Soft, nontender, and nondistended. Bowel sounds are present. EXTREMITIES: No clubbing. No cyanosis. Peripheral pulses 2+ felt bilaterally. NEUROLOGIC: The patient is alert, oriented to person and place, not much to month or year. Recall after 5 minutes is 0/3. Tangential process and poor judgment. Cranial nerves II through XII intact. Motor: Moves all extremities equally. There is slight increased tone throughout. No pronator drift seen. Sensory: Decreased light touch and pinprick up to the calves bilaterally. DTRs are 2+ and 1 at both knees and ankles. Coordination: [id number] intact. Gait is deferred for now. IMPRESSION: Transient altered mental, is secondary to Alzheimer's-type dementia with behavioral disturbance, superimposed on x-ray, some cerebral hypoperfusion to the brain with low systolic and diastolic blood pressure superimposed on metabolic encephalopathy from hypokalemia. RECOMMENDATIONS: At this time, I recommend: 1. Continue with the Depakote Extended Release 1000 mg p.o. daily for his bipolar disorder, which also help with any intermittent seizure-like activity. 2. Avoid sedative medications. 3. Continue with psychiatric management in regards to his behavioral disturbances and schizophrenia. 4. PT/OT evaluation. 5. Monitor electrolytes and correct accordingly. Continue with current present medical management. Thank you for this consult. Rober Pineda MD
[2018-09-26] MEDS: OLANZapine 5 mg Disintegrating Tab PO SCH (21:49)
--- NOTE | 2018-09-26 23:45 | CON ---
DATE: 09/26/2018 HISTORY OF PRESENT ILLNESS: The patient is a 78-year-old male with a long psychiatric history of schizophrenia as well as concurrent diagnosis of dementia, who is being treated on the medical floor for altered mental status after he quarreled with the medical staff. Psychiatry has been following upon him and patient continues to demonstrate poor focus and currently in hypoactive delirium. He is not actively hallucinating and he is a little bit more responsive today; however, he is not at baseline at this time. Patient cannot even follow commands or shake or nod his head indicating comprehension of my questioning at this time. Full evaluation could not be achieved due to patient with continued disorientation and disorganization. Insight and judgment are adequate. MEDICATIONS: The patient is on Depakote ER 1000 mg daily, Prozac 40 mg daily, Ativan 0.5 mg p.o. before every meal, Zyprexa 10 mg daily and 15 at bedtime. IMPRESSION: Delirium as well as psychiatric history of schizophrenia and schizophrenia appears to be contributory at this time. RECOMMENDATIONS: We will continue with current mediations. There is no acute indication to change any at this time. I will continue to follow up and monitor his mental status, I will try to elicit his cooperation and appropriate responsiveness. Next followup will be on 09/27/[address] Dash. Giana Dash MD
[2018-09-27] MEDS: Clotrimazole/Betamethasone Lotion(30 ml) TOP SCH ×2 (09:05→19:33)
[2018-09-27] MEDS: Divalproex 500 mg ER (ONCE DAILY formulation) PO SCH (09:06)
[2018-09-27] MEDS: Potassium Chloride 20 mEq/15 ml LIQ UD PO SCH (09:06)
[2018-09-27 10:09] LABS: HEMOGLOBIN 10.5 g/dL (14.0-18.0); MEAN CELL VOLUME 103.1 fl (80.0-105.0); MEAN CORPUSCULAR HEMOGLOBIN 32.4 pg (25.0-35.0); MEAN CORPUSCULAR HGB CONC 31.4 g/dl (31.0-37.0); MEAN PLATELET VOLUME 9.5 fl (7.0-11.0); RBC 3.24 10^6/uL (3.5-6.1); RED CELL DISTRIBUTION WIDTH 13.4 % (11.5-14.5); WHITE BLOOD COUNT 7.7 10^3/uL (4.5-11.0)
[2018-09-27 10:29] LABS: ALB/GLOB RATIO 0.9 (1.1-1.8); ALT/SGPT 41 U/L (7-56); AST/SGOT 123 U/L (17-59); BLOOD UREA NITROGEN 21 mg/dL (7-21); CALCIUM 8.2 mg/dL (8.4-10.5); GFR NON-AFRICAN AMERICAN > 60
[2018-09-27 12:18] LABS: IRON 46 ug/dL (45-180)
[2018-09-27 12:28] LABS: % IRON SATURATION 17 % (20-55); TOTAL IRON BINDING CAPACITY 277 ug/dL (261-462)
--- NOTE | 2018-09-27 13:30 | CP.PCM.PN ---
Subjective - Date & Time of Evaluation Date of Evaluation: 09/27/18 Time of Evaluation: 13:05 - Subjective Subjective: Patient: ZOHREH FISCHER Unit: [id number] : 1940 Loc: 2RNO Room/Bed : 261-01 Age/Sex: 78 / M ADM Status: ADM IN ADM Date: DIS Date: DATE: 09/27/2018 CHIEF COMPLAINT: F/u for Confusion. Subjective. : Currently, he is alert and oriented to person and place, confused and follows simple commands. He is deconditioned. PAST MEDICAL HISTORY: He has history of bipolar disorder, history of dementia, hypertension, bilateral cellulitis, history of left temporal and parietal lobe infarct, and dyslipidemia. FAMILY HISTORY: Noncontributory. ALLERGIES: NO KNOWN DRUG ALLERGIES. REVIEW OF SYSTEMS: Fourteen-point review of systems is negative except as per the HPI. SOCIAL HISTORY: Heavy smoker. History of heavy drinking. LABORATORY DATA: Reviewed via chart. PHYSICAL EXAMINATION: VITAL SIGNS: Reviewed via chart. GENERAL: The patient is lethargic, following simple commands. Moving all extremities. HEENT: Atraumatic, normocephalic. PERRLA. Extraocular muscles intact. NECK: Supple. No JVD. No adenopathy noted. LUNGS: Clear to auscultation. No adventitious sounds. HEART: S1 and S2, normal rate and rhythm. No murmurs, rubs, or gallops. ABDOMEN: Soft, nontender, and nondistended. Bowel sounds are present. EXTREMITIES: No clubbing. No cyanosis. Peripheral pulses 2+ felt bilaterally. NEUROLOGIC: The patient is alert, oriented to person and place, not much to month or year. Recall after 5 minutes is 0/3. Tangential process and poor judgment. Cranial nerves II through XII intact. Motor: Moves all extremities equally. There is slight increased tone throughout. No pronator drift seen. Sensory: Decreased light touch and pinprick up to the calves bilaterally. DTRs are 2+ and 1 at both knees and ankles. Coordination: [id number] intact. Gait is deferred for now. IMPRESSION: Transient altered mental, is secondary to Alzheimer's-type dementia with behavioral disturbance, superimposed on x-ray, some cerebral hypoperfusion to the brain with low systolic and diastolic blood pressure super imposed on metabolic encephalopathy from hypokalemia. RECOMMENDATIONS: At this time, I recommend: 1. Continue with the Depakote Extended Release 1000 mg p.o. daily for his bipolar disorder, which also help with any intermittent seizure-like activity. 2. Avoid sedative medications. 3. Continue with psychiatric management in regards to his behavioral disturbances and schizophrenia. 4. PT/OT evaluation. 5. Monitor electrolytes and correct accordingly. Thiamine 100 mg po daily for neuronal activity. 6. Mri brain to assess for any acute pathology. Continue with current present medical management. Thank you Rober Pineda MD Objective - Vital Signs/Intake and Output Vital Signs (last 24 hours): Temp Pulse Resp BP Pulse Ox 97.1 F L 68 19 120/74 95 09/27/18 12:00 09/27/18 12:00 09/27/18 12:00 09/27/18 12:00 09/27/18 05:55 Intake and Output: 09/27/18 09/27/18 06:59 18:59 Intake Total 1040 Output Total 1320 Balance -280 - Medications Medications: Current Medications Aspirin (Ecotrin) 81 mg PO DAILY [facility] Betamethasone/Clotrimazole (Lotrisone) 0 ml TOP BID [facility] Last Admin: 09/27/18 09:05 Dose: 1 applic Divalproex Sodium (Depakote Er(Once Daily)) 1,000 mg PO DAILY [facility]; Protocol Last Admin: 09/27/18 09:06 Dose: 1,000 mg Donepezil HCl (Aricept) 10 mg PO HS [facility] Last Admin: 09/26/18 21:50 Dose: 10 mg Enoxaparin Sodium (Lovenox) 40 mg SC DAILY [facility]; Protocol Fluoxetine HCl (Prozac) 40 mg PO DAILY [facility] Last Admin: 09/27/18 09:05 Dose: 40 mg Lorazepam (Ativan) 0.5 mg IVP Q6H PRN; Protocol PRN Reason: Anxiety Lorazepam (Ativan) 0.5 mg PO TID [facility] Last Admin: 09/27/18 09:05 Dose: 0.5 mg Metoprolol Tartrate (Lopressor) 25 mg PO HS [facility] Last Admin: 09/26/18 21:50 Dose: 25 mg Olanzapine (Zyprexa) 10 mg PO DAILY [facility] Last Admin: 09/27/18 09:05 Dose: 10 mg Olanzapine (Zyprexa Zydis) 15 mg PO HS [facility]; Protocol Last Admin: 09/26/18 21:49 Dose: 15 mg Potassium Chloride (Potassium Chloride Oral Soln) 20 meq PO BRK [facility] Last Admin: 09/27/18 09:06 Dose: 20 meq - Labs Labs: 09/27/18 10:00 09/27/18 10:00 PT 19.0 SECONDS (9.4-12.5) H 09/24/18 14:40 INR 1.65 09/24/18 14:40 APTT 26.3 Seconds (25.1-36.5) 09/24/18 14:40
[2018-09-27] MEDS: Enoxaparin 40 mg Syringe SC SCH (14:17)
--- NOTE | 2018-09-27 17:33 | PN ---
DATE: 09/27/2018 SUBJECTIVE: The patient is a 78-year-old, seen and examined. Seemed to be sleepy, but arousable. Answers simple question. Move all extremities. He was given Ativan earlier. PHYSICAL EXAMINATION: VITAL SIGNS: He is afebrile, pulse 60, respiration 20, blood pressure 110/60. LUNGS: Bilateral fair airflow. No rhonchi or crackle. HEART: S1, S2 audible. ABDOMEN: Soft, obese, nontender. No rebound. No guarding. NEUROLOGICAL: Patient is sleepy, but arousable. LABORATORY DATA: WBC 7.7, hemoglobin 10.5, hematocrit 33.4, platelets 153. Chemistry: Sodium 143, potassium 3.4, chloride 102, CO2 of 38, BUN 21, creatinine 0.8, blood sugar of 125, magnesium 2.5. Iron studies are pending. Blood culture, urine cultures are negative. ASSESSMENT: 1. Altered mental status. 2. Underlying dementia. 3. Bipolar disorder. 4. Hypokalemia, probably poor oral intake and being on diuretic. 5. Bilateral legs cellulitis, improving. 6. Hyperkeratosis. PLAN: Spoke to psych unit. We will get MRI done. If it is negative, he can be transferred to Psych unit. The workup has been ordered including echo, MRI, and carotid Doppler. Once the workup is negative, he will be transferred to Psych unit to adjust his medications. Sarah Richmond MD
[2018-09-27 18:24] LABS: FOLATE 9.2 ng/mL
--- NOTE | 2018-09-27 19:57 | US ---
PROCEDURE: Bilateral carotid artery duplex ultrasound HISTORY: Carotid stenosis PHYSICIAN(S): Krishan May MD. TECHNIQUE: Duplex sonography and color-flow Doppler were used to evaluate the carotid bifurcations and limited segments of the vertebral arteries bilaterally. FINDINGS: There is mild to moderate smooth heterogeneous plaque noted at the carotid bifurcations bilaterally. The peak systolic velocity in the proximal right internal carotid artery is 90 cm/sec. This corresponds to a 20 to 39% proximal right ICA stenosis. Mildly elevated systolic velocities are noted in the proximal right external carotid artery. There is antegrade flow in the right vertebral artery. The peak systolic velocity in the proximal left internal carotid artery is 116 cm/sec. This corresponds to a 40-59 percent proximal left ICA stenosis. Normal systolic velocities are noted in the proximal left external carotid artery. There is antegrade flow in the left vertebral artery. IMPRESSION: 1. 40-59 percent proximal left ICA stenosis. 2. 20-39 percent proximal right ICA stenosis. 3. Antegrade flow in both vertebral arteries.
[2018-09-27] MEDS: OLANZapine 5 mg Disintegrating Tab PO SCH (22:02)
--- NOTE | 2018-09-27 22:20 | CON ---
DATE: 09/27/2018 HISTORY OF PRESENT ILLNESS: The patient is a 78-year-old male with a long psychiatric history of schizophrenia as well as concurrent diagnosis of dementia, who is being treated on the medical floor for altered mental status, likely secondary to delirium in context of cellulitis. The psychiatrist has been following up on the patient for the last 3 days and the patient continues to demonstrate poor focus and reactivity during my visit, although he is demonstrating minimal improvement on a daily basis. The patient used to say yes to everything I asked him without much comprehension and he was not able to respond to command at that time. Today, the patient was able to respond to my commands, shake his head, nod his head and open his eyes, so he appears to be a little bit more aware of his current circumstances in that regard and he is able to maintain focus enough to very brief interaction. Presently, it is very difficult to discuss his current functioning as he continues to be quite disoriented, repeating that he is in kitchen today even with much correction than redirection. As noted in my prior followups, the patient is obviously not at baseline and that his insight and judgement remain poor. MEDICATIONS: Relevant psychiatric medications include Depakote ER 1000 mg daily, Prozac 40 mg daily, Ativan 0.5 p.o. t.i.d. scheduled and 0.5 IV every 6 hours p.r.n., Zyprexa 10 mg daily and 15 at bedtime. The patient is also taking Ativan 0.5 IV every 6 hours p.r.n. The patient has not had any recent to this medication. Vital signs and labs were reviewed by this provider. IMPRESSION: The patient is suffering from acute hypoactive delirium and has a history of dementia as well as schizophrenia. Schizophrenia does not appear to be a contributory at this time. RECOMMENDATIONS: At this time, we will continue current psychiatric medications. There is no acute indication to change them at this time as the patient is currently suffering from delirium. Psychiatry will continue to follow up with the patient and monitor his mental status including his orientation, receptive understanding and psychiatric symptoms as they may appear. Next followup will be on 09/28/2018, with Dr. Coats. Giana Dash MD [facility] # [id number]
[2018-09-28 06:36] LABS: BASO # 0.03 K/mm3 (0.0-2.0); BASO % 0.4 % (0.0-3.0); EOS # 0.4 (0.0-0.7); EOS % 4.4 % (1.5-5.0); GRAN # 3.98 (1.4-6.5); GRAN % 49.4 % (50.0-68.0); HEMOGLOBIN 10.9 g/dL (14.0-18.0); LYMPH # 2.4 (1.2-3.4); LYMPH % 29.4 % (22.0-35.0); MEAN CELL VOLUME 103.2 fl (80.0-105.0); MEAN CORPUSCULAR HEMOGLOBIN 32.2 pg (25.0-35.0); MEAN CORPUSCULAR HGB CONC 31.1 g/dl (31.0-37.0); MEAN PLATELET VOLUME 10.1 fl (7.0-11.0); MONO # 1.3 (0.1-0.6); MONO % 16.4 % (1.0-6.0); RBC 3.39 10^6/uL (3.5-6.1); RED CELL DISTRIBUTION WIDTH 13.5 % (11.5-14.5)
[2018-09-28 06:43] LABS: ALB/GLOB RATIO 0.9 (1.1-1.8); BLOOD UREA NITROGEN 21 mg/dL (7-21); GFR NON-AFRICAN AMERICAN > 60
[2018-09-28 06:44] LABS: ALT/SGPT 34 U/L (7-56); AST/SGOT 113 U/L (17-59)
[2018-09-28] MEDS: Potassium Chloride 20 mEq/15 ml LIQ UD PO SCH (08:48)
[2018-09-28] MEDS: Enoxaparin 40 mg Syringe SC SCH (10:51)
[2018-09-28] MEDS: Clotrimazole/Betamethasone Lotion(30 ml) TOP SCH ×2 (10:52→17:23)
[2018-09-28] MEDS: Divalproex 500 mg ER (ONCE DAILY formulation) PO SCH (10:54)
--- NOTE | 2018-09-28 11:46 | MRI ---
Date of service: 09/28/2018 PROCEDURE: MRI BRAIN WITHOUT CONTRAST HISTORY: AMS COMPARISON: MRI 12/14/2013 TECHNIQUE: Multiplanar, multisequence MR images of the brain were obtained without intravenous contrast enhancement. FINDINGS: HEMORRHAGE: None DWI: No evidence of an acute or early subacute infarction. BRAIN PARENCHYMA: There is a large area of cystic encephalomalacia involving the left temporal lobe. There is also extensive white matter encephalomalacia left greater than right. There is no evidence of acute infarct or hemorrhage VENTRICLES: Unremarkable. No hydrocephalus. CRANIUM: Unremarkable. ORBITS: Grossly unremarkable. PARANASAL SINUSES/MASTOIDS: Clear VASCULAR SYSTEM: Skull base flow voids intact. OTHER FINDINGS: None. IMPRESSION: There is a large area of cystic encephalomalacia involving the left temporal lobe. There is also extensive white matter encephalomalacia left greater than right. There is no evidence of acute infarct or hemorrhage
--- NOTE | 2018-09-28 16:53 | CP.PCM.PCO ---
Physician Communication Note - Physician Communication Note Physician Communication Note: pt was at MRI, as per RN no agitation/no aggression/no acute issues.
--- NOTE | 2018-09-28 17:11 | PCM.EEG ---
Electroencephalogram Report - Electroencephalogram Report Procedure Date: 09/27/18 Condition of Recording: Awake, Drowsy Medication: Atorvastatin, Metoprolol, Zyprexa Interpretation: Technical Information: This was a 16-channel EEG, 1-channel EKG , performed using an [employer] machine., electrodes were applied according to the 10/20 international placement system, impedances were less than 5 K Ohm. FINDINGS During active states, the EEG was characterized by 10-20 Hz, 15-30 uV activity bilaterally in fronto-central regions, with slightly slower frequencies and higher amplitudes emerging on the right. Resting wakefulness was characterized by a symmetric posterior dominant rhythm of 7 Hz, 30-50 uV, which was reactive to eye opening and closing. Drowsiness was associated with slow roving eye movements, slowing and fragmentation of the posterior dominant rhythm, and bilateral 4-7 Hz, 40-70 uV theta activity, sometimes with a shifting predominance. Hyperventilation not performed, Photic stimulation was performed and there were no changes in the record. Throughout the recording, there was evidence of continuous left hemispheric 3-6 Hz, 30-75 uV slowing. Impression: This is an abnormal EEG study that demonstrate the presence of a focal cortical abnormality involving the left hemisphere, in keeping with a structural abnormality in the same area. The filings are also in keeping with a mild non specific diffuse disturbance of cortical activity, in keeping with a diffuse thompson matter dysfunction. These f indings do not support a specific etiology.
[2018-09-28] MEDS: OLANZapine 5 mg Disintegrating Tab PO SCH (21:32)
[2018-09-29 00:04] VITALS: O2SAT 97
--- NOTE | 2018-09-29 02:39 | PN ---
DATE: 09/28/2018 HISTORY OF PRESENT ILLNESS: The patient is 78 years old, seen and examined, seems to be confused disoriented, does not know where he is and is not oriented to time or place either. According to therapist, he was not able to get out of bed or standup. Although, the patient was in [facility] for last 3 months and according to daughter, his condition has deteriorated, he has been home for 4 days and was unable to get out of bed without maximum assist. The patient had neurological workup done so far. His MRI is unremarkable. Carotid Doppler is negative. PHYSICAL EXAMINATION: GENERAL: The patient is confused disoriented, oral intake is fair. VITAL SIGNS: He is afebrile, pulse 67, respirations 19 and blood pressure 112/62. LUNGS: Bilateral fair airflow. No rhonchi or crackle. HEART: S1 and S2 audible. ABDOMEN: Soft, obese, nontender. No rebound. No guarding. NEUROLOGIC: He is awake and alert, but confused and disoriented. LABORATORY EXAM: WBC 8, hemoglobin 10.9, hematocrit 35 and platelet of 149. Chemistry: Sodium 143, potassium 3.6, chloride 103, CO2 , BUN 21, creatinine 0.8, and blood sugar of 93. LFTs are within normal limits and blood cultures, urine cultures are negative. ASSESSMENT: 1. Worsening dementia. 2. Deconditioning and difficulty walking. 3. Bipolar disorder. 4. Hypertension. 5. Hypokalemia. 6. Bilateral cellulitis, improved. PLAN: We will continue the patient on current medications. At this point, we have disposition issue. He does not have any time left for subacute rehab and daughter is not ready to take him home. He needs 24-hour care and supervision. We will continue his psych medication, continue his potassium supplementation. Had lengthy discussion with daughter. She does want him to be placed in half-way, but he is not eligible for Medicaid. Tomorrow, they are going to have a family meeting and further workup on disposition plan. Sarah Richmond MD
[2018-09-29] MEDS: Potassium Chloride 20 mEq/15 ml LIQ UD PO SCH (10:07)
[2018-09-29] MEDS: Divalproex 500 mg ER (ONCE DAILY formulation) PO SCH (10:07)
[2018-09-29] MEDS: Enoxaparin 40 mg Syringe SC SCH (10:08)
[2018-09-29] MEDS: Clotrimazole/Betamethasone Lotion(30 ml) TOP SCH ×2 (10:11→18:01)
[2018-09-29 17:35] VITALS: BP 102/56; PULSE 68; RESP 19; TEMP 98.8
--- NOTE | 2018-09-29 20:14 | PN ---
DATE: 09/29/2018 SUBJECTIVE: Short, the patient is a 78-year-old with history of schizophrenia, also dementia and aphasia. The patient was admitted on the medical floor for evaluation of altered mental status. The patient was seen by Dr. Dash. Over the weekend, the patient seems to be at his baseline of functioning. The patient was seen today with medical student. The patient seems to be comfortable. The patient asked to have water. The patient does not have agitation or aggression. The patient seems to be not in any acute distress. PHYSICAL EXAMINATION: VITAL SIGNS: This conventional mortgage underwriter reviewed vital signs. Vital signs seem to be stable. MEDICATIONS: Reviewed. Aspirin, Lipitor, Depakote extended-release 1000 mg daily, Aricept, Lovenox, Prozac 40 mg daily, Ativan, Lopressor, Zyprexa Zydis 15 mg at the nighttime, Zyprexa 10 mg daily, potassium chloride. LABORATORY DATA: Reviewed. Hemoglobin and hematocrit from the 30th seem to be on the lower side. Electrolyte seems to be much better. Toxicology reviewed. Valproic acid was 51. Microbiology reviewed. Notes reviewed. Agree with Dr. Pineda. DIAGNOSES Right now, Alzheimer type dementia with behavioral disturbances, encephalopathy. The patient has history of schizophrenia. PLAN: Continue current management. Continue current medication. Continue psychotropic medication. PT, OT also recommended. There is no agitation or aggression. The patient seems to be comfortable. There is no acute psychiatric issues. This conventional mortgage underwriter will sign off. Should you have any questions, give me a call back. Thank you very much for letting me to participate in the care of your patient. Evelyn Coats MD
--- NOTE | 2018-09-30 06:09 | DS ---
HISTORY OF PRESENT ILLNESS: The patient is 78 years old, seen and examined, seem to be more alert. According to nurses, he is eating well, but he is totally confused and disoriented, bowel movement, no blood in the stools. PHYSICAL EXAMINATION: VITAL SIGNS: He is afebrile, pulse 64, respirations 19, and blood pressure 109/66. LUNGS: Bilateral fair airflow. No rhonchi or crackle. HEART: S1 and S2 audible. ABDOMEN: Soft, obese, and nontender. No rebound. No guarding. NEUROLOGIC: He is awake and alert, but confused and disoriented. Does not answer intelligently. He has a random thought that he verbalize. EXTREMITIES: Bilateral legs, no edema. LABORATORY DATA: Blood culture and urine cultures are negative. MRI of the brain is unremarkable. He has a large area of cystic encephalomalacia involving the left temporal lobe. There is also extensive white matter encephalomalacia, left greater than the right. EEG shows presence of focal cortical abnormality involving left hemisphere consistent with diffuse thompson matter dysfunction. ASSESSMENT: 1. Worsening dementia. 2. Deconditioning and difficulty walking. 3. History of bipolar disorder. 4. Schizophrenia. 5. Extensive encephalomalacia. PLAN: At this point, neuro workup is negative. According to psych, he is not aggressive or harm to himself or to other, so at this point disposition plan is not in place. The patient ran out of subacute rehab time and family is not prepared to take care of him, he need 24-hour supervision and care and he is not a candidate for long-term placement because of insurance issues, so there is a family meeting today with the adult protective caseworker and social welfare clerk for discharge plan. Sarah Richmond MD
== END 2018-09-29 20:34 | disposition home health service (06) | DRG 56 ==
LOC: ED 12:38 → ERH 16:15 → 2RNO 21:00
PROVIDERS: ADMIT Internal Medicine; ATTEND Internal Medicine
DX: G30.9 Alzheimer's disease, unspecified (principal); G93.41 Metabolic encephalopathy; F02.81 Dementia in other diseases classified elsewhere, unspecified severity, with behavioral disturbance; L03.115 Cellulitis of right lower limb; L03.116 Cellulitis of left lower limb; R47.01 Aphasia; E87.6 Hypokalemia; I10 Essential (primary) hypertension; F31.9 Bipolar disorder, unspecified; F20.9 Schizophrenia, unspecified; R26.2 Difficulty in walking, not elsewhere classified; G93.89 Other specified disorders of brain; E78.5 Hyperlipidemia, unspecified; Z86.73 Personal history of transient ischemic attack (TIA), and cerebral infarction without residual deficits; Z87.891 Personal history of nicotine dependence